=== PATIENT | female | born 1970 | race Caucasian/White ===

== ENCOUNTER → 2017-11-05 07:04 | Outpatient (CLI) | payer OTHER, SELFPAY ==
[2017-11-05 07:38] LABS: Basophils # 0.1 K/mm3 (0-0.2); Basophils % 0.4 % (0.1-2.0); Eosinophils # 0.2 K/mm3 (0.0-0.4); Eosinophils % 1.2 % (0.1-12.0); Hematocrit 47.4 % (37.0-47.0); Hemoglobin 15.8 g/dL (12.2-16.2); Lymphocytes # 2.4 K/mm3 (0.7-4.5); Lymphocytes % 18.1 K/mm3 (10-50); Mean Corpuscular HGB Conc 33.4 g/dL (31.8-35.4); Mean Corpuscular Hemoglobin 31.6 pg (27.0-31.2); Mean Corpuscular Volume 94.6 fl (81-99); Mean Platelet Volume 8.1 fl (7.4-10.4); Monocytes # 0.5 K/mm3 (0.1-1.0); Monocytes % 3.9 % (1.7-9.3); Neutrophils # 10.2 K/mm3 (1.8-7.8); Neutrophils % 76.4 % (37.0-80.0); Platelet Count 308 K/mm3 (142-424); Red Blood Count 5.01 M/mm3 (4.20-5.40); Red Cell Distribution Width 12.4 % (11.5-17.5); White Blood Count 13.3 K/mm3 (4.8-10.8)
[2017-11-05 09:05] LABS: Erythrocyte Sedimentation Rate 14 mm/hr (0-20)
[2017-11-05 10:04] LABS: Alanine Aminotransferase 50 U/L (12-78); Albumin Level 4.1 gm/dL (3.4-5.0); Albumin/Globulin Ratio 1.1 (1.1-1.8); Alkaline Phosphatase 85 U/L (46-116); Anion Gap 16.7 mEq/L (5-15); Aspartate Amino Transferase 17 U/L (15-37); Bilirubin,Total 0.3 mg/dL (0.2-1.0); Blood Urea Nitrogen 15 mg/dL (7-18); Calcium 10.1 mg/dL (8.5-10.1); Carbon Dioxide 25 mmol/L (21.0-32.0); Chloride 105 mmol/L (98-107); Chol/HDL Ratio 8.6 (1-3.5); Cholesterol 320 mg/dL (140-200); Creatinine,Serum 0.77 mg/dL (0.55-1.02); Estimated Glomerular Filt Rate 80 ml/min (>60); GFR (African American) 97 ML/MIN (>60); Globulin 3.6 gm/dl (1.3-3.2); Glucose 88 mg/dL (74-106); HDL Cholesterol 37 mg/dL (29-89); LDL Cholesterol 220 mg/dL (0-130); Potassium 4.7 mmoL/L (3.5-5.1); Sodium 142 mmol/L (136-145); T4 (Thyroxine) 8.7 ug/dl (4.7-13.3); Thyroid Stimulating Hormone 1.04 uIU/ml (0.358-3.740); Total Protein,Serum 7.7 gm/dL (6.4-8.2); Triglycerides 314 mg/dL (30-200); VLDL Cholesterol 63 mg/dL (0-40)
[2017-11-05 10:10] LABS: C-Reactive Protein < 0.2 mg/L (0.0-0.9)
[2017-11-07 06:16] LABS: CA 19-9 7 U/mL (0-35); Vitamin B12 409 pg/mL (232-1245); Vitamin D 25 Hydroxy 18.3 ng/mL (30.0-100.0)
== END ==
PROVIDERS: Visit Provider Nurse Practitioner Family
DX: K62.89 Other specified diseases of anus and rectum (principal); R53.83 Other fatigue; Z13.828 Encounter for screening for other musculoskeletal disorder
CPT/HCPCS: 36415; 80053; 80061; 82607; 82652; 84436; 84443; 85025; 85651; 86140; 86316

== ENCOUNTER → 2017-11-22 16:50 | Outpatient (CLI) | payer OTHER, SELFPAY ==
--- NOTE | 2017-11-22 16:53 | MM_ITS ---
MM Dig screening mamm BI w/CAD ORDERING PHYSICIAN : Denise Goldberg PATIENT AGE: 47 years GENDER: Female COMPARISON: Apparently have not arrived or None available from prior [place] mammogram INDICATION: ITS.REASON: breast cancer screening no hormones. No new complaints noncontributory family history TECHNIQUE: Standard CC and MLO images were obtained. R2 CAD reviewed. Also axillary cc views both breasts. FINDINGS: Apparently staff had been waiting for outside studies to arrive from [place] but they never have. When staff called facility again apparently the studies are no longer available. Best is cases now finally presented to me for dictation and review. The breasts demonstrate mild asymmetry with slightly more inhomogeneous fibroglandular elements upper-outer quadrant left breast than right. RIGHT BREAST: The combination of the 3 view show highly suspicious mass. There are some focal areas of density noted and highlighted by CAD LEFT BREAST:. Similarly the 3 views show no highly suspicious area. There are some scattered areas slightly more focal density at the upper quadrant left breast. Some of which highlighted by CAD as well. These are Most likely fibroglandular densities. . However I would suggest an bilateral follow-up study in 5-6 months to confirm stable baseline character less outside studies can be obtained thereafter IMPRESSION: --- No prior studies available Scattered areas of density upper-outer quadrant both right and left breast are most likely fibroglandular elements. No Area of significant greater concern then another However I would suggest a bilateral follow-up mammogram in 6 months to better confirm & supports this appearance as baseline stability,... With hopefully routine protocol thereafter BI-RADS Category: 3 Probably Benign Finding Short Term Follow-up RECOMMENDED FOLLOW-UP: 6M 6 MONTH FOLLOW-UP Bilateral mammogram May 2018 (A letter has been sent to the patient regarding results of the study.)
== END ==
PROVIDERS: PCP Nurse Practitioner Family; Visit Provider Nurse Practitioner Family
DX: Z12.31 Encounter for screening mammogram for malignant neoplasm of breast (principal)
CPT/HCPCS: 77067

== ENCOUNTER 2017-11-23 08:30 | Outpatient (RCR) | payer OTHER, SELFPAY | END 2017-11-23 08:31 | disposition home or self-care (01) | LOC: PT 08:30 | PROVIDERS: PCP Nurse Practitioner Family; Visit Provider Orthopaedic Surgery | DX: M25.562 Pain in left knee (principal); M25.362 Other instability, left knee | CPT/HCPCS: 97010; 97014; 97110; 97163; G0283 ==

== ENCOUNTER → 2018-07-01 09:44 | Outpatient (CLI) | payer OTHER, SELFPAY ==
[2018-07-01 09:57] LABS: Basophils # 0.1 K/mm3 (0-0.2); Basophils % 0.5 % (0.1-2.0); Eosinophils # 0.2 K/mm3 (0.0-0.4); Eosinophils % 1.7 % (0.1-12.0); Hematocrit 47.9 % (37.0-47.0); Lymphocytes % 26.1 % (10-50); Mean Corpuscular HGB Conc 33.5 g/dL (31.8-35.4); Mean Corpuscular Hemoglobin 31.9 pg (27.0-31.2); Mean Corpuscular Volume 95.4 fl (81-99); Mean Platelet Volume 8.4 fl (7.4-10.4); Monocytes # 0.4 K/mm3 (0.1-1.0); Monocytes % 3.3 % (1.7-9.3); Neutrophils # 7.9 K/mm3 (1.8-7.8); Neutrophils % 68.5 % (37.0-80.0); Platelet Count 374 K/mm3 (142-424); Red Blood Count 5.02 M/mm3 (4.20-5.40); Red Cell Distribution Width 12.6 % (11.5-17.5); White Blood Count 11.6 K/mm3 (4.8-10.8)
[2018-07-01 10:22] LABS: Alanine Aminotransferase 62 U/L (12-78); Albumin Level 4.3 gm/dL (3.4-5.0); Albumin/Globulin Ratio 1.2 (1.1-1.8); Alkaline Phosphatase 79 U/L (46-116); Anion Gap 16.9 mEq/L (5-15); Aspartate Amino Transferase 25 U/L (15-37); Bilirubin,Total 0.4 mg/dL (0.2-1.0); Blood Urea Nitrogen 13 mg/dL (7-18); Carbon Dioxide 24 mmol/L (21.0-32.0); Chloride 103 mmol/L (98-107); Creatine Kinase 96 U/L (26-192); Creatinine,Serum 0.78 mg/dL (0.55-1.02); Estimated Glomerular Filt Rate 78 ml/min (>60); GFR (African American) 95 ML/MIN (>60); Globulin 3.6 gm/dl (1.3-3.2); Glucose 97 mg/dL (74-106); Potassium 3.9 mmoL/L (3.5-5.1); Sodium 140 mmol/L (136-145); Total Protein,Serum 7.9 gm/dL (6.4-8.2); Troponin I < 0.02 ng/ml (0.00-0.06)
[2018-07-01 10:45] LABS: Calcium 9.8 mg/dL (8.5-10.1)
[2018-07-01 11:15] LABS: CKMB Relative Index 0.5 U/L (0-4.0); Creatine Kinase MB < 0.5 ng/ml (0.0-3.6)
== END ==
PROVIDERS: Visit Provider Emergency Medicine
DX: R07.9 Chest pain, unspecified (principal)
CPT/HCPCS: 80053; 82550; 82553; 84484; 85025

== ENCOUNTER → 2019-01-08 15:04 | Outpatient (CLI) | payer OTHER, SELFPAY | PROVIDERS: Visit Provider Nurse Practitioner Family | DX: N32.89 Other specified disorders of bladder (principal) | CPT/HCPCS: 87086; 87088; 87186 ==

== ENCOUNTER → 2019-02-22 07:31 | Outpatient (CLI) | payer OTHER, SELFPAY ==
[2019-02-22 13:18] LABS: Chol/HDL Ratio 7.3 (1-3.5); Cholesterol 316 mg/dL (140-200); Free T4 (Free Thyroxine) 0.97 ng/dl (0.76-1.46); HDL Cholesterol 43 mg/dL (29-89); LDL Cholesterol 241 mg/dL (0-130); Thyroid Stimulating Hormone 1.12 uIU/ml (0.358-3.740); Triglycerides 159 mg/dL (30-200); VLDL Cholesterol 32 mg/dL (0-40)
[2019-02-24 14:34] LABS: Measles Antibodies, IgG >300.0 AU/mL (Immune >16.4); Rubella Antibodies, IgG 1.73 index (Immune >0.99); Varicella Zoster IgG 1200 index (Immune >165)
== END ==
PROVIDERS: Visit Provider Nurse Practitioner Family
DX: E66.9 Obesity, unspecified (principal); Z92.29 Personal history of other drug therapy; Z23 Encounter for immunization
CPT/HCPCS: 36415; 80061; 84439; 84443; 86735; 86762; 86765; 86787

== ENCOUNTER → 2020-02-16 08:01 | Outpatient (CLI) | payer OTHER, SELFPAY ==
--- NOTE | 2020-02-16 08:01 | MR_ITS ---
PROCEDURE: MR CERVICAL SPINE WO CON CLINICAL INDICATION: worsening neck pain with reoccurring right upper extremity pain tingling and numbness FREQUENT MIGRAINES, PREVIOUS NECK SURGERY 2015, NECK PAIN, RIGHT ARM TINGLING/NUMBNESS. NO PRIOR COMPARISON: No exams were available for comparison TECHNIQUE: Standard multiplanar multiecho sequences are performed without contrast. 3-D MIP and myelographic images are also rendered and reviewed FINDINGS: Craniocervical junction has an unremarkable appearance. There is reversal of the normal cervical lordosis which could be due to patient positioning or muscle spasm. C2-C3: Mild left foraminal narrowing from facet hypertrophy. C3-C4: Moderate to severe left-sided foraminal narrowing from facet hypertrophy. C4-C5: Moderate sized right paracentral disc herniation causing severe right lateral recess narrowing impinging upon and compressing the right and anterior aspect of the cervical cord. Borderline canal stenosis. C5-C6: Degenerative disc disease with a broad based medium sized right paracentral and foraminal disc osteophyte complex causing severe right-sided lateral recess and foraminal narrowing. This abuts the right lateral aspect of the cord anteriorly. There is canal stenosis at this level at 10 mm C6-C7: Unremarkable. C7-T1: Unremarkable IMPRESSION: 1. Reversal cervical lordosis which may be due to patient positioning or muscle spasm. 2. C3-C4: Moderate to severe left-sided foraminal narrowing from facet hypertrophy. 3. C4-C5: Moderate sized right paracentral disc herniation causing severe right lateral recess narrowing impinging upon and compressing the right and anterior aspect of the cervical cord. Borderline canal stenosis at 11 mm 4. C5-C6: Degenerative disc disease with a broad based medium sized right paracentral and foraminal disc osteophyte complex causing severe right-sided lateral recess and foraminal narrowing. This abuts the right lateral aspect of the cord anteriorly. There is canal stenosis at this level at 10 mm Dictated by: Sher Whitney MD 02/18/2020 09:10 Sher Whitney MD in [place] 02/18/2020 09:10
== END ==
PROVIDERS: PCP Nurse Practitioner Family; Visit Provider Specialist
DX: G43.009 Migraine without aura, not intractable, without status migrainosus (principal); R51.9 Headache, unspecified; G89.29 Other chronic pain; M54.2 Cervicalgia; R20.0 Anesthesia of skin; R20.2 Paresthesia of skin
CPT/HCPCS: 70551; 72141; 76376

== ENCOUNTER → 2020-03-06 06:51 | Outpatient (CLI) | payer OTHER, SELFPAY ==
[2020-03-06 06:54] VITALS: BP 128/75; PULSE 75; RESP 15; O2SAT 98; BMI 25.0
[2020-03-06 07:01] VITALS: BP 125/73; PULSE 75; RESP 16; TEMP 36.6; O2SAT 98
== END ==
PROVIDERS: PCP Nurse Practitioner Family; Visit Provider Emergency Medicine
DX: J32.9 Chronic sinusitis, unspecified (principal)
CPT/HCPCS: 96372

== ENCOUNTER 2020-05-04 19:13 | Emergency (ER) | payer OTHER, SELFPAY ==
[2020-05-04 19:30] VITALS: BP 142/80; PULSE 85; RESP 19; TEMP 36.9; O2SAT 98; BMI 28.3
--- NOTE | 2020-05-04 19:47 | HMH.EDUTC ---
[facility] Disposition Clinical Impression: Encounter for laboratory testing for COVID-19 virus Disposition: Home, Self-Care Condition on Discharge: Good Instructions: DI for COVID-19 (Suspected or Confirmed ), COVID-19: Testing and Tracing, Preventing the Spread of Coronavirus Discharge Instructions Additional Instructions: *Monitor Temp, Over the counter Motrin or Tylenol as directed/as needed Tylenol every 4 hours and Motrin every 6 hours (as long as your family doctor has told you that you can take it) for fever or pain. and straight to ER if unable to lower temp less than 101.0 after medication given *Warm salt water gargles may help to soothe the throat *Throat Lozenges *Warm fluids like tea with honey may help to soothe the throat *Sleep elevated *Humidifier/Vaporizer Follow up IMMEDIATELY for new or worsening symptoms or no Noticeable improvement over the next 48-72 hours. 911 for difficulty breathing or swallowing You were tested for today for COVID19 your test result should be back in the next 24-48 hours, you may call to the [facility] to see if your test results are back in the next 48 hours [phone] [facility] hours are 9am-9pm You was given a handout with instructions for Self Quarantine and Self isolation for while you wait on test results and what to do if they are positive If you are positive the Health Dept will be contacting you also Referrals: Denise Goldberg APRN [Primary Care Provider] - As needed Forms: Work/School Release Time of Disposition: 19:51 Medical Decision Making - John Inquiry Pt receiving controlled substance: No John was queried for this patient: No Vital Signs: 05/04/20 19:30 Temperature 98.4 F Temperature Source Oral Pulse Rate [Right Brachial] 85 Respiratory Rate 19 Blood Pressure [Right Arm] 142/80 H Blood Pressure Mean [Right Arm] 100 Blood Pressure Source [Right Arm] Automatic Cuff Blood Pressure Position [Right Arm] Sitting 02 Sat by Pulse Oximetry 98 Oxygen Delivery Method Room Air Orders (Tests/Meds): ORDERS Category Date Time Status Covid-19 Nasal PCR Sendout P&[facility] Stat Lab 05/04/20 19:18 Ordered [facility] HPI - General Stated complaint: covid test-positive@work Time Seen by Provider: 05/04/20 19:47 Mode of Arrival: Ambulatory Source of Information: Patient Limitations: No Limitations Description of Symptoms (Recalled from Triage Doc. by RN): PATIENT TESTED POSITIVE WITH RAPID COVID TEST. NEEDING PCR. C/O STOMACH CRAMP, SORE THROAT, AND COUGH HEENT Symptoms (Recalled from RN notes): Yes Resp Symptoms (Recalled from RN notes): No Skin Symptoms (Recalled from RN notes): No MS Symptoms (Recalled from RN notes): No Functional Status (Recalled from RN notes): WNL - History of Present Illness Provider Complaint: Patient states that she works at [employer] and alot of the staff has tested positive for COVID States that she took the rapid test earlier and it was positive so they made her come in and get a PCR test States that she has been having some symptoms such as sore throat cramping/diarrhea and cough - Related Data Home Medications Medication Instructions Recorded Confirmed [id number] 1 tab PO PRN tab 02/05/20 03/19/20 50 mg-325 mg-40 mg tablet Previous Rx's Medication Instructions Recorded atorvastatin 10 mg tablet 10 mg PO QHS #30 tab 01/23/20 ubrogepant 100 mg tablet 100 mg PO .COMPLEX #10 tab 02/05/20 phentermine 37.5 mg tablet 37.5 mg PO DAILY #30 tab 03/19/20 topiramate 25 mg tablet 25 mg PO DAILY #30 tab 03/19/20 fluconazole 100 mg tablet 100 mg PO DAILY #5 tab 03/23/20 Allergies Allergy/AdvReac Type Severity Reaction Status Date / Time codeine Allergy Verified 05/04/20 19:40 - Worker's Comp Is this a Worker's Comp case?: No [facility] History - Hepatitis A Screen Drug use history?: No High risk sexual behaviors?: No History of sexually transmitted infection?: No Currently employed?: 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
[2020-05-04 20:05] VITALS: BP 142/80; PULSE 85; RESP 19; TEMP 36.9; O2SAT 98
--- NOTE | 2020-05-06 10:06 | PC.NURSE ---
patient notified of positive covid results
[2020-05-06 10:07] LABS: Covid-19 Nasal PCR Sendout P&C POSITIVE
== END 2020-05-04 20:08 | disposition home or self-care (01) ==
PROVIDERS: Emergency Provider Nurse Practitioner; PCP Nurse Practitioner Family
DX: U07.1 COVID-19 (principal); E78.5 Hyperlipidemia, unspecified; G43.709 Chronic migraine without aura, not intractable, without status migrainosus; F17.210 Nicotine dependence, cigarettes, uncomplicated; Z88.5 Allergy status to narcotic agent; Z79.899 Other long term (current) drug therapy
CPT/HCPCS: 99202; G0463; U0004

== ENCOUNTER → 2021-02-25 11:58 | Outpatient (CLI) | payer OTHER, SELFPAY ==
[2021-02-25 12:00] LABS: Microscopic, Urine URINE MICROSCOPIC (MICROSCOPIC)
[2021-02-25 12:45] LABS: Appearance,Urine SL CLOUDY (Clear); Bilirubin,Urine Negative (Negative); Blood, Urine 1+ (Negative); Color,Urine YELLOW (Yellow); Glucose,Urine (UA) Negative (Negative); Ketones,Urine TRACE (Negative); Leukocyte Esterase,Urine Negative (Negative); Nitrate,Urine Negative (Negative); Protein,Urine Negative (Negative); Specific Gravity, Urine 1.025 (1.005-1.030); Urobilinogen,Urine 0.2 EU/dl (0.2)
[2021-02-25 12:57] LABS: Bacteria,Urine Trace /lpf; WBC,Urine Occasional #/hpf (0-3)
== END ==
PROVIDERS: Visit Provider Nurse Practitioner Family
DX: R30.0 Dysuria (principal); N39.0 Urinary tract infection, site not specified
CPT/HCPCS: 81001; 87086

== ENCOUNTER → 2021-05-10 07:57 | Outpatient (CLI) | payer OTHER, SELFPAY ==
--- NOTE | 2021-05-10 08:01 | XR_ITS ---
FINAL REPORT CLINICAL HISTORY: hip pain..no trauma FINDINGS: LEFT HIP Two views of the left hip including an AP pelvis demonstrate no acute fracture or dislocation. The joint spaces appear normal. The visualized bony structures are well aligned. No soft tissue abnormality is seen. IMPRESSION: No acute bony abnormality. Reviewed, Interpreted and Dictated by Elias Gunn MD Transcribed by Marii Neff Authenticated by Elias Gunn MD on 05/10/2021 09:49:[address] [facility]
[2021-05-10 08:43] LABS: Basophils # 0.1 K/mm3 (0-0.2); Eosinophils # 0.2 K/mm3 (0.0-0.4); Hematocrit 48.5 % (37.0-47.0); Hemoglobin 15.2 g/dL (12.2-16.2); Lymphocytes # 2.4 K/mm3 (0.7-4.5); Lymphocytes % 30.1 % (10-50); Mean Corpuscular HGB Conc 31.4 g/dL (31.8-35.4); Mean Corpuscular Hemoglobin 32.5 pg (27.0-31.2); Mean Corpuscular Volume 103.7 fl (81-99); Mean Platelet Volume 8.7 fl (7.4-10.4); Monocytes # 0.3 K/mm3 (0.1-1.0); Monocytes % 3.8 % (1.7-9.3); Neutrophils # 5.1 K/mm3 (1.8-7.8); Platelet Count 358 K/mm3 (142-424); Red Blood Count 4.67 M/mm3 (4.20-5.40); Red Cell Distribution Width 12.8 % (11.5-17.5); White Blood Count 8.1 K/mm3 (4.8-10.8)
[2021-05-10 09:30] LABS: Erythrocyte Sedimentation Rate 35 mm/hr (0-30)
[2021-05-10 10:30] LABS: Alanine Aminotransferase 55 U/L (12-78); Albumin Level 4.9 g/dl (3.5-5.0); Albumin/Globulin Ratio 1.9 (1.1-1.8); Alkaline Phosphatase 63 U/L (38-126); Anion Gap 15.9 mEq/L (5-15); Aspartate Amino Transferase 33 U/L (14-36); Bilirubin,Total 0.5 mg/dl (0.2-1.3); Blood Urea Nitrogen 19 mg/dl (7-17); Calcium 10.6 mg/dl (8.4-10.2); Carbon Dioxide 23 mmol/L (22.0-30.0); Chloride 112 mmol/L (98-107); Chol/HDL Ratio 6.5 (1-3.5); Cholesterol 299 mg/dl (140-200); Estimated Glomerular Filt Rate 75 ml/min (>60); GFR (African American) 91 ML/MIN (>60); Globulin 2.6 g/dL (1.3-3.2); Glucose 94 mg/dl (74-100); HDL Cholesterol 46 mg/dl (40-60); Potassium 4.9 mmoL/L (3.5-5.1); Sodium 146 mmol/L (136-145); Total Protein,Serum 7.5 g/dl (6.3-8.2); Triglycerides 226 mg/dl (30-150); Uric Acid 5.2 mg/dl (2.5-6.2); VLDL Cholesterol 45 mg/dL (0-40)
[2021-05-10 10:41] LABS: Direct LDL Cholesterol 219.63 mg/dL (100-129)
[2021-05-10 10:46] LABS: T4 (Thyroxine) 7.4 ug/dl (5.53-11.0)
[2021-05-10 11:00] LABS: Thyroid Stimulating Hormone 0.68 uIU/mL (0.465-4.68)
[2021-05-11 08:16] LABS: RA Latex Turbid. <10.0 IU/mL (<14.0)
[2021-05-11 22:28] LABS: Antinuclear Antibodies, IFA Positive (.)
== END ==
PROVIDERS: PCP Nurse Practitioner Family; Visit Provider Nurse Practitioner Family
DX: M25.552 Pain in left hip (principal); R23.2 Flushing; Z79.899 Other long term (current) drug therapy
CPT/HCPCS: 36415; 73502; 80053; 80061; 84436; 84443; 84550; 85025; 85651; 86038; 86431

== ENCOUNTER 2021-07-10 20:22 | Emergency (ER) | payer OTHER, SELFPAY ==
[2021-07-10 20:24] VITALS: BP 180/83; PULSE 83; RESP 18; TEMP 36.9; O2SAT 95; BMI 31.2
--- NOTE | 2021-07-10 20:45 | PC.NURSE ---
ER at bedside
--- NOTE | 2021-07-10 20:47 | HMH.EDGENADL ---
ED Disposition Clinical Impression: Lumbar back pain with radiculopathy affecting left lower extremity Disposition: Home, Self-Care Condition on Discharge: Good Instructions: DI for Lumbar Radiculopathy Additional Instructions: use meds and call pcp for follow up Prescriptions: predniSONE [Prednisone 20mg Tab] 20 mg PO BID #10 tab Transmission Status: Pending to [id number] Referrals: Denise Goldberg APRN [Primary Care Provider] - - Critical Care Critical Care Time: No Attestation: On 07/10/21, the high probability of a clinically significant, sudden or life threatening deterioration of the following system(s) required my full and direct attention, intervention and personal management. The time I documented below is in addition to time spent performing reported procedures but includes the following listed in this critical care notation. Medical Decision Making - Medical Records Medical records reviewed: Yes: I reviewed the patient's medical records. - John Inquiry Pt receiving controlled substance: No Vital Signs: 07/10/21 20:24 Temperature 98.5 F Temperature Source Oral Pulse Rate [Left Radial] 83 Respiratory Rate 18 Blood Pressure [Right Arm] 180/83 H Blood Pressure Mean [Right Arm] 115 02 Sat by Pulse Oximetry 95 Oxygen Delivery Method Room Air - Lab Data Lab results reviewed: Yes: I reviewed the patient's lab results. Lab Results 07/10/21 20:34: Urine Color Yellow, Urine Appearance Clear, Urine pH 5.5, Ur Specific Admire >= 1.030, Urine Protein Negative, Urine Glucose (UA) Negative, Urine Ketones Negative, Urine Blood 2+, Urine Nitrate Negative, Urine Bilirubin Negative, Urine Urobilinogen 0.2, Ur Leukocyte Esterase Negative, Urine RBC 5-10, Urine WBC 3-5, Ur Squamous Epith Cells 5-10, Amorphous Sediment Trace 07/10/21 21:00: WBC 11.1 H, RBC 4.62, Hgb 15.1, Hct 45.2, MCV 97.7, MCH 32.6 H, MCHC 33.3, RDW 12.8, Plt Count 311, MPV 9.0, Neut % (Auto) 59.5, Lymph % (Auto) 32.1, [place] % (Auto) 4.5, Eos % (Auto) 1.9, Baso % (Auto) 2.0, Neut # (Auto) 6.6, Lymph # (Auto) 3.6, [place] # (Auto) 0.5, Eos # (Auto) 0.2, Baso # (Auto) 0.2 07/10/21 21:00: Sodium 138, Potassium 3.4 L, Chloride 106, Carbon Dioxide 24, Anion Gap 11.4, BUN 10, Creatinine 0.50 L, Estimated Creat Clear 151, Estimated GFR 130, Est GFR ( Amer) 157, Glucose 96, Calcium 9.4, Total Bilirubin 0.4, AST 38 H, ALT 65, Alkaline Phosphatase 63, C-Reactive Protein 1.1, Total Protein 7.5, Albumin 4.5, Globulin 3.0, Albumin/Globulin Ratio 1.5 07/10/21 21:00: ESR 17 07/10/21 21:00: Procalcitonin 0.061 Result diagrams: 07/10/21 21:00 07/10/21 21:00 Orders (Tests/Meds): ED MEDICATIONS Generic Name Dose Route Start Last Admin Trade Name Freq PRN Reason Stop Dose Admin Sodium Chloride 1,000 mls @ 999 mls/hr 07/10/21 21:00 07/10/21 21:09 Sod Chlor 0.9% 1000ml Bag IV 07/10/21 22:00 999 mls/hr .Q1H1M KRISTINE Administration Discontinued Medications Generic Name Dose Route Start Last Admin Trade Name Freq PRN Reason Stop Dose Admin Ketorolac Tromethamine 15 mg 07/10/21 20:50 07/10/21 21:07 Ketorolac 30mg/Ml Vial IV 07/10/21 20:51 15 mg ONCE ONE Administration - CT Data CT Scan: Abdomen, Pelvis, L-Spine Time Received: 21:[address] Reviewed: Yes: I have viewed the radiologist's interpretation Preliminary Findings: No Fracture Seen Medical Decision Narrative: has lumbar radicular pain witrh no rash or cauda equina sx- stable ct General Adult HPI - General Chief complaint: PAIN Stated complaint: back pain possible kidney stones Time Seen by Provider: 07/10/21 20:47 Mode of Arrival: Ambulatory Source of Information: Patient, Spouse, Medical Record Limitations: No Limitations Description of Symptoms (Recalled from ER Triage Doc. by RN): LEFT FLANK AND HIP PAIN - WORSE TODAY. 7/10 ACHES. - History of Present Illness HPI narrative: progressive lt flank and lumbar pain with rad to lt loer
--- NOTE | 2021-07-10 20:49 | CT_ITS ---
PROCEDURE INFORMATION: Exam: CT Abdomen And Pelvis Without Contrast Exam date and time: 07/10/2021 9:05 PM Age: 50 years old Clinical indication: Abdominal pain; Generalized; Prior surgery; Surgery date: 6+ months; Surgery type: Hysterectomy, tubal; Patient HX: PT born with only left kidney; Additional info: Left flank and hip pain TECHNIQUE: Imaging protocol: Computed tomography of the abdomen and pelvis without contrast. Radiation optimization: All CT scans at this facility use at least one of these dose optimization techniques: automated exposure control; mA and/or kV adjustment per patient size (includes targeted exams where dose is matched to clinical indication); or iterative reconstruction. COMPARISON: CR XR HIP LT 2-3V W/PELVIS 05/10/2021 8:04 AM FINDINGS: Lungs: Granuloma within the left lower lung. There are hypoventalitory changes at the lung bases. Liver: Parenchymal enhancement is not evaluated without contrast. No hepatomegaly. Gallbladder and bile ducts: No calcified stones. No ductal dilation. Pancreas: Parenchymal enhancement is not evaluated without contrast. No ductal dilation. Spleen: Parenchymal enhancement is not evaluated without contrast. No splenomegaly. Adrenal glands: Right adrenal calcification. Kidneys and ureters: Right kidney is not visualized. Left kidney is unremarkable. Stomach and bowel: No obstruction. No mucosal thickening. Appendix: No evidence of appendicitis. Intraperitoneal space: No free air. No significant fluid collection. Vasculature: Limited evaluation without contrast. No abdominal aortic aneurysm. Lymph nodes: No enlarged lymph nodes. Urinary bladder: No acute abnormality. Reproductive: No acute abnormality. Bones/joints: Mild scoliosis. No fracture. Soft tissues: Limited evaluation without contrast. No significant soft tissue swelling. IMPRESSION: Limited noncontrast evaluation without acute findings.
--- NOTE | 2021-07-10 20:49 | CT_ITS ---
PROCEDURE INFORMATION: Exam: CT Lumbar Spine Without Contrast Exam date and time: 07/10/2021 9:01 PM Age: 50 years old Clinical indication: Low back pain; Prior surgery; Surgery type: Hysterectomy tubal; Additional info: Left flank and hip pain TECHNIQUE: Imaging protocol: Computed tomography images of the lumbar spine without contrast. Radiation optimization: All CT scans at this facility use at least one of these dose optimization techniques: automated exposure control; mA and/or kV adjustment per patient size (includes targeted exams where dose is matched to clinical indication); or iterative reconstruction. COMPARISON: CR XR HIP LT 2-3V W/PELVIS 05/10/2021 8:04 AM FINDINGS: Vertebrae: Mild scoliosis. No acute fracture. Reproductive: Calcification of the right adrenal gland. Vasculature: Calcified atherosclerosis. No aneurysm. Soft tissues: Unremarkable. IMPRESSION: No acute findings.
[2021-07-10 20:50] LABS: Microscopic, Urine URINE MICROSCOPIC (MICROSCOPIC)
[2021-07-10 20:52] LABS: Appearance,Urine CLEAR (Clear); Bilirubin,Urine Negative (Negative); Blood, Urine 2+ (Negative); Color,Urine YELLOW (Yellow); Glucose,Urine (UA) Negative (Negative); Ketones,Urine Negative (Negative); Leukocyte Esterase,Urine Negative (Negative); Nitrate,Urine Negative (Negative); PH,Urine 5.5 (5.0-8.5); Protein,Urine Negative (Negative); Specific Gravity, Urine >= 1.030 (1.005-1.030); Urobilinogen,Urine 0.2 EU/dl (0.2)
[2021-07-10 20:58] LABS: Amorphous Sediment,Urine Trace /lpf
[2021-07-10 21:13] LABS: Basophils # 0.2 K/mm3 (0-0.2); Eosinophils # 0.2 K/mm3 (0.0-0.4); Eosinophils % 1.9 % (0.1-12.0); Hematocrit 45.2 % (37.0-47.0); Hemoglobin 15.1 g/dL (12.2-16.2); Lymphocytes # 3.6 K/mm3 (0.7-4.5); Lymphocytes % 32.1 % (10-50); Mean Corpuscular HGB Conc 33.3 g/dL (31.8-35.4); Mean Corpuscular Hemoglobin 32.6 pg (27.0-31.2); Mean Corpuscular Volume 97.7 fl (81-99); Monocytes # 0.5 K/mm3 (0.1-1.0); Monocytes % 4.5 % (1.7-9.3); Neutrophils # 6.6 K/mm3 (1.8-7.8); Neutrophils % 59.5 % (37.0-80.0); Platelet Count 311 K/mm3 (142-424); Red Blood Count 4.62 M/mm3 (4.20-5.40); Red Cell Distribution Width 12.8 % (11.5-17.5); White Blood Count 11.1 K/mm3 (4.8-10.8)
[2021-07-10 21:27] LABS: Alanine Aminotransferase 65 U/L (12-78); Albumin Level 4.5 g/dl (3.5-5.0); Albumin/Globulin Ratio 1.5 (1.1-1.8); Alkaline Phosphatase 63 U/L (38-126); Anion Gap 11.4 mEq/L (5-15); Aspartate Amino Transferase 38 U/L (14-36); Bilirubin,Total 0.4 mg/dl (0.2-1.3); Blood Urea Nitrogen 10 mg/dl (7-17); Calcium 9.4 mg/dl (8.4-10.2); Carbon Dioxide 24 mmol/L (22.0-30.0); Chloride 106 mmol/L (98-107); Creatinine Clearance Estimated 151 mL/min (50-200); Estimated Glomerular Filt Rate 130 ml/min (>60); GFR (African American) 157 ML/MIN (>60); Glucose 96 mg/dl (74-100); Potassium 3.4 mmoL/L (3.5-5.1); Sodium 138 mmol/L (136-145); Total Protein,Serum 7.5 g/dl (6.3-8.2)
[2021-07-10 21:32] LABS: C-Reactive Protein 1.1 mg/L (0-4)
[2021-07-10 21:42] LABS: Erythrocyte Sedimentation Rate 17 mm/hr (0-30)
[2021-07-10 21:44] LABS: Procalcitonin 0.061 ng/mL (0.0-2.0)
[2021-07-10 22:56] VITALS: BP 145/99; PULSE 80; RESP 18; TEMP 36.7; O2SAT 97
== END 2021-07-10 22:20 | disposition home or self-care (01) ==
PROVIDERS: Emergency Provider Emergency Medicine; PCP Nurse Practitioner Family
DX: M54.16 Radiculopathy, lumbar region (principal); G43.709 Chronic migraine without aura, not intractable, without status migrainosus; E78.5 Hyperlipidemia, unspecified; F17.210 Nicotine dependence, cigarettes, uncomplicated
CPT/HCPCS: 72131; 74176; 80053; 81001; 84145; 85025; 85651; 86140; 96365; 96375; 99284

== ENCOUNTER → 2022-01-06 12:09 | Outpatient (CLI) | payer OTHER, SELFPAY ==
--- NOTE | 2022-01-06 12:12 | US_ITS ---
FINAL REPORT CLINICAL HISTORY: abdominal pain FINDINGS: Ultrasound images of the right upper quadrant were obtained. The liver parenchyma is increased echogenicity. The gallbladder contains a trace amount of sludge and a small polyp. The common duct is normal. The right kidney is congenitally absent. IMPRESSION: Diffuse fatty liver. Trace sludge and a polyp in the gallbladder. Congenitally absent right kidney. Reviewed, Interpreted and Dictated by Elias Gunn MD Transcribed by Chris Millan Authenticated and [facility]
[2022-01-06 12:49] LABS: Microscopic, Urine URINE MICROSCOPIC (MICROSCOPIC)
[2022-01-06 13:09] LABS: Basophils # 0.1 K/mm3 (0-0.2); Basophils % 0.7 % (0.1-2.0); Eosinophils # 0.2 K/mm3 (0.0-0.4); Eosinophils % 1.5 % (0.1-12.0); Hematocrit 46.6 % (37.0-47.0); Hemoglobin 15.2 g/dL (12.2-16.2); Lymphocytes # 2.6 K/mm3 (0.7-4.5); Lymphocytes % 23.4 % (10-50); Mean Corpuscular HGB Conc 32.7 g/dL (31.8-35.4); Mean Corpuscular Hemoglobin 32.2 pg (27.0-31.2); Mean Corpuscular Volume 98.6 fl (81-99); Mean Platelet Volume 8.1 fl (7.4-10.4); Monocytes # 0.4 K/mm3 (0.1-1.0); Monocytes % 3.9 % (1.7-9.3); Neutrophils # 7.7 K/mm3 (1.8-7.8); Neutrophils % 70.5 % (37.0-80.0); Platelet Count 348 K/mm3 (142-424); Red Blood Count 4.73 M/mm3 (4.20-5.40); Red Cell Distribution Width 12.8 % (11.5-17.5); White Blood Count 10.9 K/mm3 (4.8-10.8)
[2022-01-06 13:24] LABS: Appearance,Urine CLEAR (Clear); Bilirubin,Urine Negative (Negative); Blood, Urine 1+ (Negative); Color,Urine YELLOW (Yellow); Glucose,Urine (UA) Negative (Negative); Ketones,Urine Negative (Negative); Leukocyte Esterase,Urine Negative (Negative); Nitrate,Urine Negative (Negative); Protein,Urine Negative (Negative); Specific Gravity, Urine <= 1.005 (1.005-1.030); Urobilinogen,Urine 0.2 EU/dl (0.2)
[2022-01-06 14:42] LABS: Chloride 106 mmol/L (98-107)
[2022-01-06 14:43] LABS: Potassium 4.7 mmoL/L (3.5-5.1); Sodium 143 mmol/L (136-145)
[2022-01-06 14:45] LABS: Alanine Aminotransferase 91 U/L (12-78); Amylase 52 U/L (30-110); Anion Gap 16.7 mEq/L (5-15); Aspartate Amino Transferase 48 U/L (14-36); Blood Urea Nitrogen 10 mg/dl (7-17); Carbon Dioxide 25 mmol/L (22.0-30.0); Estimated Glomerular Filt Rate 88 ml/min (>60); GFR (African American) 106 ML/MIN (>60)
[2022-01-06 14:46] LABS: Albumin Level 4.9 g/dl (3.5-5.0); Albumin/Globulin Ratio 1.8 (1.1-1.8); Alkaline Phosphatase 92 U/L (38-126); Bilirubin,Total 0.3 mg/dl (0.2-1.3); Calcium 10.1 mg/dl (8.4-10.2); Globulin 2.8 g/dL (1.3-3.2); Glucose 86 mg/dl (74-100); Lipase 35 U/L (23-300); Total Protein,Serum 7.7 g/dl (6.3-8.2)
== END ==
PROVIDERS: PCP Emergency Medicine; Visit Provider Emergency Medicine
DX: R10.9 Unspecified abdominal pain (principal)
CPT/HCPCS: 36415; 76705; 80053; 81001; 82150; 83690; 85025

== ENCOUNTER → 2022-01-25 10:28 | Outpatient (CLI) | payer OTHER, SELFPAY ==
--- NOTE | 2022-01-25 10:29 | NM_ITS ---
FINAL REPORT CLINICAL HISTORY: gallbladder disease,U/S SHOWED SLUDGE AND SMALL POLYP. PT DID COMPLAIN OF EPIGASTRIC PAIN WITH CCK FINDINGS: HEPATOBILIARY SCAN WITH CCK INJECTION Following intravenous administration of approximately 8.04 of technetium Choletec, multiple scintigraphic images were obtained. The hepatic parenchymal phase shows homogeneous distribution of the tracer throughout the liver. Prompt appearance of tracer is noted in the intrahepatic and extrahepatic biliary systems. The gallbladder visualizes normal. Biliary to bowel transit is within normal limits. Following intravenous 1.5 mcg CCK injection, gallbladder ejection fraction is estimated to be 84 %. IMPRESSION: Normal gallbladder ejection fraction of 84 %. Reviewed, Interpreted and Dictated by Shaun Frias III, MD Transcribed by Chris Millan Authenticated and [facility]
== END ==
PROVIDERS: PCP Emergency Medicine; Visit Provider Emergency Medicine
DX: K82.8 Other specified diseases of gallbladder (principal)
CPT/HCPCS: 78227; A9537; J2805

== ENCOUNTER → 2023-01-04 15:58 | Outpatient (CLI) | payer OTHER, SELFPAY ==
[2023-01-04 12:45] LABS: Adenovirus,PCR Not Detected (NotDetected); Bordetella Pertussis Not Detected (NotDetected); Chlamydophila Pneumoniae, PCR Not Detected (NotDetected); Coronavirus 19, PCR Not Detected (NotDetected); Coronavirus 229E Not Detected (NotDetected); Coronavirus NL63 Not Detected (NotDetected); Coronavirus OC43 Not Detected (NotDetected); Coronovirus HKU1,PCR Not Detected (NotDetected); Human Metapneumovirus Not Detected (NotDetected); Influenza A, PCR Not Detected (NotDetected); Influenza AH1, 2009 Not Detected (NotDetected); Influenza AH1, PCR Not Detected (NotDetected); Influenza AH3,PCR Not Detected (NotDetected); Influenza B, PCR Not Detected (NotDetected); Mycoplasma Pneumoniae, PCR Not Detected (NotDetected); Parainfluenza 1, PCR Not Detected (NotDetected); Parainfluenza 2, PCR Not Detected (NotDetected); Parainfluenza 3, PCR Not Detected (NotDetected); Parainfluenza 4, PCR Not Detected (NotDetected); Respiratory Syncytial Virus Not Detected (NotDetected); Rhinovirus/Enterovirus Not Detected (NotDetected)
== END ==
PROVIDERS: PCP Nurse Practitioner Family; Visit Provider Nurse Practitioner Family
DX: R06.02 Shortness of breath (principal)
CPT/HCPCS: 87581; 87632; 87798

== ENCOUNTER 2023-08-22 10:21 | Outpatient (CLI) | payer OTHER, SELFPAY ==
[2023-08-22 19:05] LABS: Basophils % 0.4 % (0.1-2.0); Eosinophils # 0.1 K/mm3 (0.0-0.4); Hematocrit 44.5 % (37.0-47.0); Hemoglobin 14.3 g/dL (12.2-16.2); Lymphocytes # 2.2 K/mm3 (0.7-4.5); Mean Corpuscular HGB Conc 32.1 g/dL (31.8-35.4); Mean Corpuscular Hemoglobin 32.7 pg (27.0-31.2); Mean Platelet Volume 11.3 fl (7.4-10.4); Monocytes # 0.4 K/mm3 (0.1-1.0); Monocytes % 5.1 % (1.7-9.3); Neutrophils % 68.5 % (37.0-80.0); Platelet Count 306 K/mm3 (142-424); Red Blood Count 4.37 M/mm3 (4.20-5.40); Red Cell Distribution Width 13.7 % (11.5-17.5); White Blood Count 8.7 K/mm3 (4.8-10.8)
[2023-08-22 19:28] LABS: Alanine Aminotransferase 40 U/L (12-78); Albumin Level 4.3 g/dl (3.5-5.0); Albumin/Globulin Ratio 1.6 (1.1-1.8); Alkaline Phosphatase 67 U/L (38-126); Anion Gap 15.5 mEq/L (5-15); Aspartate Amino Transferase 33 U/L (14-36); Bilirubin,Total 0.6 mg/dl (0.2-1.3); Blood Urea Nitrogen 10 mg/dl (7-17); Calcium 9.6 mg/dl (8.4-10.2); Carbon Dioxide 25 mmol/L (22.0-30.0); Chloride 105 mmol/L (98-107); Chol/HDL Ratio 4.5 (1-3.5); Cholesterol 285 mg/dl (140-200); Estimated Glomerular Filt Rate 104 ml/min (>60); GFR (African American) 126 ML/MIN (>60); Globulin 2.7 g/dL (1.3-3.2); Glucose 86 mg/dl (74-100); HDL Cholesterol 64 mg/dl (40-60); Potassium 3.5 mmoL/L (3.5-5.1); Sodium 142 mmol/L (136-145); Triglycerides 110 mg/dl (30-150); VLDL Cholesterol 22 mg/dL (0-40)
[2023-08-22 19:40] LABS: Direct LDL Cholesterol 205.57 mg/dL (100-129)
[2023-08-22 19:59] LABS: Thyroid Stimulating Hormone 0.49 uIU/mL (0.465-4.68)
[2023-08-22 20:00] LABS: 25-OH Vitamin D, Total 36.7 ng/mL (30-100)
== END 2023-08-22 23:59 | disposition home or self-care (01) ==
LOC: LAB.DROPOF 08-24 10:21
PROVIDERS: PCP Nurse Practitioner Family; Visit Provider Nurse Practitioner Family
DX: E55.9 Vitamin D deficiency, unspecified (principal); Z68.29 Body mass index [BMI] 29.0-29.9, adult
CPT/HCPCS: 80053; 80061; 82306; 84443; 85025

== ENCOUNTER 2023-09-06 08:23 | Outpatient (CLI) | payer OTHER, SELFPAY ==
--- NOTE | 2023-09-06 08:23 | MM_ITS ---
PROCEDURE INFORMATION: Exam: MG Bilateral Screening 3D Mammography Exam date and time: 09/06/2023 8:15 AM Age: 52 years old Clinical indication: Screening examination TECHNIQUE: Imaging protocol: Bilateral Screening tomosynthesis and 2D mammography including computer-aided detection (CAD) when performed. COMPARISON: MG SCBI MM Dig screening mamm BI w/CAD 11/22/2017 4:58 PM FINDINGS: MAMMOGRAPHY: Breast composition: There are scattered areas of fibroglandular density. Mass: None. Architectural distortion: None. Calcifications: No suspicious calcifications. Asymmetric density: None. Skin thickening: None. Axillary adenopathy: None. IMPRESSION: No mammographic evidence of malignancy. Annual screening is recommended unless otherwise clinically indicated. ASSESSMENT: BI-RADS Category 1: Negative
== END 2023-09-06 23:59 | disposition home or self-care (01) ==
LOC: RAD 08:23
PROVIDERS: PCP Nurse Practitioner Family; Visit Provider Nurse Practitioner Family
DX: Z12.31 Encounter for screening mammogram for malignant neoplasm of breast (principal); R07.89 Other chest pain
CPT/HCPCS: 77063; 77067

== ENCOUNTER 2024-02-28 08:33 | Outpatient (CLI) | payer OTHER, SELFPAY ==
[2024-02-28 18:04] LABS: Coronavirus 19, PCR Not Detected (NotDetected); Influenza A, PCR Not Detected (NotDetected); Influenza B, PCR Not Detected (NotDetected)
== END 2024-02-28 23:59 | disposition home or self-care (01) ==
LOC: LAB.DROPOF 02-29 07:25
PROVIDERS: PCP Nurse Practitioner Family; Visit Provider Nurse Practitioner Family
DX: R39.9 Unspecified symptoms and signs involving the genitourinary system (principal); R68.89 Other general symptoms and signs; J02.9 Acute pharyngitis, unspecified; Z72.0 Tobacco use
CPT/HCPCS: 87086; 87088; 87186; 87636

== ENCOUNTER 2024-03-05 09:27 | Emergency (ER) | payer OTHER, SELFPAY ==
[2024-03-05 09:28] VITALS: BP 144/79; PULSE 89; RESP 18; TEMP 36.6; O2SAT 100; BMI 27.6
--- NOTE | 2024-03-05 09:29 | [facility].EDGENADL ---
Discharge Plan Disposition Patient Disposition: Home, Self-Care Condition: Good Prescriptions Prescriptions: No Action hyoscyamine sulfate 0.125 mg tablet 0.125 mg PO QID Qty: 120 1RF benzonatate 100 mg capsule 100 mg PO TID PRN (Reason: cough) Qty: 30 0RF ondansetron 4 mg tablet,disintegrating 4 mg PO Q8H PRN (Reason: nausea and vomiting) Qty: 30 0RF fluconazole 150 mg tablet 150 mg PO DAILY 3 Days Qty: 3 0RF estradiol 0.0375 mg/24 hr patch semiweekly 1 patch transdermal .semiweekly Qty: 8 11RF albuterol sulfate 90 mcg/actuation HFA aerosol inhaler See Rx Instructions .ROUTE .COMPLEX Qty: 7 0RF Dose Instruction: INHALE 1 PUFF BY MOUTH EVERY 6 HOURS Rx Instructions: INHALE 1 PUFF BY MOUTH EVERY 6 HOURS atorvastatin 20 mg tablet 20 mg PO DAILY Qty: 30 2RF clobetasol 0.05 % solution 1 applic topical DAILY Qty: 50 3RF pantoprazole 40 mg tablet,delayed release (DR/EC) See Rx Instructions .ROUTE .COMPLEX Qty: 90 0RF Dose Instruction: Take 1 tablet by mouth once daily Rx Instructions: Take 1 tablet by mouth once daily topiramate 25 mg tablet See Rx Instructions .ROUTE .COMPLEX Qty: 360 0RF Dose Instruction: Take 2 tablets by mouth twice daily Rx Instructions: Take 2 tablets by mouth twice daily Ubrelvy 100 mg tablet See Rx Instructions .ROUTE .COMPLEX Qty: 10 0RF Dose Instruction: TAKE 1 TABLET BY MOUTH ONCE DAILY NEEDED FOR MIGRAINE HEADACHE Rx Instructions: TAKE 1 TABLET BY MOUTH ONCE DAILY NEEDED FOR MIGRAINE HEADACHE nitrofurantoin monohyd/m-cryst [Macrobid] 100 mg capsule 100 mg PO Q12H 10 Days Qty: 20 0RF Rx Instructions: must administer with a meal/food Referrals Follow up/Referrals: Rodney Batres APRN [Primary Care Provider] - See instructions Activity Restrictions/Add. Instructions Additional Instructions/Restrictions: Please continue to take the antibiotic as directed. Please return with any new or worsening symptoms. Clinical Impressions Clinical Impression: Cystitis Instructions Patient Instructions: DI for Urinary Tract Infection (UTI), DI for Urinary Tract Infection in Children Print Language Print Language: Portuguese Discharge ED Provider: Carlee,Vicente General Adult HPI General Chief complaint: Urogenital-Female Stated complaint: UTI Time Seen by Provider: 03/05/24 09:29 History of Present Illness HPI narrative: The patient presents with a chief complaint of a urinary tract infection (UTI) that has tested positive for E. coli. The patient reports being prescribed nitrofurantoin and has taken four doses since Sunday night, but notes that the medication is not alleviating symptoms. The patient expresses concern due to having only one kidney, which is congenital, and is experiencing spasms in the kidney, chills, and a general feeling of being unwell. The patient mentions working a shift from 2 PM to 1 AM and experiencing worsening symptoms, including kidney spasms, which led to being sent home from work. The patient has never had a kidney infection before and describes feeling very bad overall. Additionally, the patient reports having an ear infection in the left ear. Previous tests for strep, COVID, and flu were conducted and returned negative results. The patient was initially put on cefdinir before the culture results were available. The patient is concerned about the solitary kidney and the ineffectiveness of the current antibiotic treatment. The patient clarifies that she received the urinalysis results on Sunday and started taking the medication Sunday night after work. She has taken four doses so far: Sunday morning, Sunday night, and Sunday. The patient mentions feeling horrible and describes symptoms of chills and overall achiness. She also notes that she was sent home from work due to the kidney spasms. Please note that above description of symptoms, in this electronic medical record under categorization of recalled from ER triage doctor by RN are reflective of an initial nursing assessment, however, is not reflective of my full history and physical exam that was personally taken and clarified. Consequentially, this preceding description of symptoms, which may include the patient's categorized chief complaint in the EMR, do not reflect my personal clinical impression, and the ultimate description of history of present illness and patient stated complaints should be deferred to this section of the note. Unless stated otherwise or congruent with this section of the note, additional signs, symptoms, or incongruence should be interpreted as inaccurate with my clinical impression. Related Data Previous Rx's ?Medication ?Instructions ?Recorded estradiol 0.0375 mg/24 hr 1 patch transdermal .semiweekly #8 09/05/23 semiweekly transdermal patch ea albuterol sulfate 90 mcg/actuation See Rx Instructions .Route 08/02/23 aerosol inhaler .COMPLEX #7 ea hyoscyamine sulfate 0.125 mg tablet 0.125 mg PO QID #120 tabs 08/22/23 atorvastatin 20 mg tablet 20 mg PO DAILY #30 tabs 08/24/23 clobetasol 0.05 % scalp solution 1 applic topical DAILY #50 mL 01/02/24 pantoprazole 40 mg tablet,delayed See Rx Instructions .Route 02/08/24 release .COMPLEX #90 tabs topiramate 25 mg tablet See Rx Instructions .Route 02/08/24 .COMPLEX #360 tabs ubrogepant 100 mg tablet (Ubrelvy) See Rx Instructions .Route 02/08/24 .COMPLEX #10 tabs benzonatate 100 mg capsule 100 mg PO TID PRN cough #30 caps 02/28/24 fluconazole 150 mg tablet 150 mg PO DAILY 3 days #3 tabs 02/28/24 ondansetron 4 mg disintegrating 4 mg PO Q8H PRN nausea and 02/28/24 tablet vomiting #30 tabs nitrofurantoin 100 mg PO Q12H 10 days #20 caps 03/03/24 monohydrate/macrocrystals 100 mg capsule (Macrobid) Allergies Allergy/AdvReac Type Severity Reaction Status Date / Time codeine AdvReac Intermediate vomiting Verified 02/28/24 08:16 [facility] Disclaimer: The information contained in this section may have been updated after the patient was seen, as this information can be updated by other users. 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 Other Medical History Have you received the Flu Vaccine for this season: Yes Have you received the Pneumonia Vaccine: No ROS Obtained: Yes other As per HPI Physical Exam General General appearance: alert and in no apparent distress Head Head exam: atraumatic and normocephalic Eye Eye exam: Present normal appearance Neck Neck exam: Present normal inspection Chest Chest inspection: Present normal inspection and symmetric chest wall rise Respiratory Respiratory exam: Present normal lung sounds bilaterally; Absent respiratory distress Cardiovascular Cardiovascular exam: Present regular rate and normal rhythm Abdominal Exam Abdominal exam: Present soft Neurological Exam Neurological exam: Present alert and oriented X3 Psychiatric Psychiatric exam: Present normal affect and normal mood Skin Skin exam: Present warm and dry Medical Decision Making Medical Records Medical records reviewed: Yes I reviewed the patient's medical records. Screening: Per USPSTF and CDC recommendations, given the prevalence of disease in our region, it is our hospital?s policy to screen for HIV and viral Hepatitis for all patients aged 18 and over and those with ongoing risk factors. John Inquiry Pt receiving controlled substance: No Vital Signs: 03/05/24 09:28 03/05/24 09:45 03/05/24 11:08 Temperature 97.9 F 97.9 F Temperature Source Oral Pulse Rate 85 70 Pulse Rate [Right] 89 Respiratory Rate 18 16 Blood Pressure 144/79 H 116/64 Blood Pressure [Right Arm] 144/79 H Blood Pressure Mean [Right Arm] 100 Blood Pressure Source [Right Arm] Automatic Cuff 02 Sat by Pulse Oximetry 100 100 Oxygen Delivery Method Room Air Room Air Lab Data Lab Results 03/05/24 09:33: Urine Color Yellow, Urine Appearance Clear, Urine pH 6.0, Ur Specific [place] 1.020, Urine Protein Negative, Urine Glucose (UA) Trace, Urine Ketones Trace, Urine Blood 1+ A, Urine Nitrate Negative, Urine Bilirubin Negative, Urine Urobilinogen 0.2, Ur Leukocyte Esterase Negative, Urine RBC 3-5, Urine WBC None, Ur Squamous Epith Cells 10-20, Urine Bacteria Trace 03/05/24 09:55: WBC 9.2, RBC 4.45, Hgb 14.6, Hct 43.5, MCV 97.8, MCH 32.8 H, MCHC 33.5, RDW 12.9, Plt Count 310, MPV 7.7, Neut % (Auto) 80.8 H, Lymph % (Auto) 11.9, [place] % (Auto) 3.7, Eos % (Auto) 3.0, Baso % (Auto) 0.5, Neut # (Auto) 7.5, Lymph # (Auto) 1.1, [place] # (Auto) 0.3, Eos # (Auto) 0.3, Baso # (Auto) 0.1, Sodium 141, Potassium 3.7, Chloride 112 H, Carbon Dioxide 18 L, Anion Gap 14.7, BUN 13, Creatinine 0.80, Estimated Creat Clear 89, Estimated GFR 74, Est GFR ( Amer) 90, Glucose 97, Calcium 9.2, Total Bilirubin 0.6, AST 33, ALT 43, Alkaline Phosphatase 58, Total Protein 7.3, Albumin 4.6, Globulin 2.7, Albumin/Globulin Ratio 1.7, Hepatitis C Antibody Non reactive, HIV 1&2 Antibody Rapid Nonreactive 03/05/24 09:55 03/05/24 09:55 Orders (Tests/Meds): ORDERS Category Date Time Status CBC w/Auto Diff [Complete Blood Count Auto Diff] Stat Lab 03/05/24 09:55 Completed CMP [Comprehensive Metabolic Panel] Stat Lab 03/05/24 09:55 Completed HIV (1&2) Antibody Rapid Stat Lab 03/05/24 09:55 Completed Hep C Ab with Reflex to RNA Stat Lab 03/05/24 09:55 Completed UA [Urinalysis and Microscopic] Stat Lab 03/05/24 09:33 Completed Medical Decision Narrative: Patient with history and exam per above presenting for evaluation of dysuria Diagnoses considered include cystitis, pyelonephritis, no clinical evidence to suggest urolithiasis or perinephric abscess ED workup and treatment included: ORDERS Category Date Time Status CBC w/Auto Diff [Complete Blood Count Auto Diff] Stat Lab 03/05/24 09:55 Completed CMP [Comprehensive Metabolic Panel] Stat Lab 03/05/24 09:55 Completed HIV (1&2) Antibody Rapid Stat Lab 03/05/24 09:55 Received Hep C Ab with Reflex to RNA Stat Lab 03/05/24 09:55 Received UA [Urinalysis and Microscopic] Stat Lab 03/05/24 09:33 Completed Labs were independently interpreted by me, significant for creatinine within normal limits, no acute kidney injury, no leukocytosis Given previous urine culture with susceptibility to p.o. antibiotic, patient is deemed stable for discharge at this time and will continue course of antibiotic with strict return precautions provided. I discussed my clinical impression with patient and answered all questions. At this time, the evidence for any other entities in the differential is insufficient to warrant any further testing or ED observation. This was explained to the patient. The patient was advised that persistent or worsening symptoms require further evaluation. Critical Care Critical Care Time Critical Care Time: No
[2024-03-05 09:45] VITALS: BP 144/79; PULSE 85; O2SAT 100
[2024-03-05 09:53] LABS: Microscopic, Urine URINE MICROSCOPIC (MICROSCOPIC)
[2024-03-05 09:55] LABS: Appearance,Urine CLEAR (Clear); Bilirubin,Urine Negative (Negative); Blood, Urine 1+ (Negative); Color,Urine YELLOW (Yellow); Glucose,Urine (UA) TRACE (Negative); Ketones,Urine TRACE (Negative); Leukocyte Esterase,Urine Negative (Negative); Nitrate,Urine Negative (Negative); Protein,Urine Negative (Negative); Urobilinogen,Urine 0.2 EU/dl (0.2)
[2024-03-05 10:06] LABS: Basophils # 0.1 K/mm3 (0-0.2); Basophils % 0.5 % (0.1-2.0); Eosinophils # 0.3 K/mm3 (0.0-0.4); Hematocrit 43.5 % (37.0-47.0); Hemoglobin 14.6 g/dL (12.2-16.2); Lymphocytes # 1.1 K/mm3 (0.7-4.5); Lymphocytes % 11.9 % (10-50); Mean Corpuscular HGB Conc 33.5 g/dL (31.8-35.4); Mean Corpuscular Hemoglobin 32.8 pg (27.0-31.2); Mean Corpuscular Volume 97.8 fl (81-99); Mean Platelet Volume 7.7 fl (7.4-10.4); Monocytes # 0.3 K/mm3 (0.1-1.0); Monocytes % 3.7 % (1.7-9.3); Neutrophils # 7.5 K/mm3 (1.8-7.8); Neutrophils % 80.8 % (37.0-80.0); Platelet Count 310 K/mm3 (142-424); Red Blood Count 4.45 M/mm3 (4.20-5.40); Red Cell Distribution Width 12.9 % (11.5-17.5); White Blood Count 9.2 K/mm3 (4.8-10.8)
[2024-03-05 10:10] LABS: Bacteria,Urine Trace /lpf
[2024-03-05 10:16] LABS: Alanine Aminotransferase 43 U/L (12-78); Albumin Level 4.6 g/dl (3.5-5.0); Albumin/Globulin Ratio 1.7 (1.1-1.8); Alkaline Phosphatase 58 U/L (38-126); Anion Gap 14.7 mEq/L (5-15); Aspartate Amino Transferase 33 U/L (14-36); Bilirubin,Total 0.6 mg/dl (0.2-1.3); Blood Urea Nitrogen 13 mg/dl (7-17); Calcium 9.2 mg/dl (8.4-10.2); Carbon Dioxide 18 mmol/L (22.0-30.0); Chloride 112 mmol/L (98-107); Creatinine Clearance Estimated 89 mL/min (50-200); Estimated Glomerular Filt Rate 74 ml/min (>60); GFR (African American) 90 ML/MIN (>60); Globulin 2.7 g/dL (1.3-3.2); Glucose 97 mg/dl (74-100); Potassium 3.7 mmoL/L (3.5-5.1); Sodium 141 mmol/L (136-145); Total Protein,Serum 7.3 g/dl (6.3-8.2)
[2024-03-05 11:08] VITALS: BP 116/64; PULSE 70; RESP 16; TEMP 36.6; O2SAT 98
[2024-03-05 13:06] LABS: HIV (1&2) Antibody Rapid NONREACTIVE (NONREACTIVE)
[2024-03-06 06:26] LABS: HCV Ab Non Reactive (Non Reactive)
== END 2024-03-05 11:16 | disposition home or self-care (01) ==
PROVIDERS: Emergency Provider Emergency Medicine; PCP Nurse Practitioner Family
DX: N30.90 Cystitis, unspecified without hematuria (principal); R30.0 Dysuria
CPT/HCPCS: 80053; 81001; 85025; 86803; 87389; 99283

== ENCOUNTER 2024-03-21 12:05 | Outpatient (CLI) | payer OTHER, SELFPAY | END 2024-03-21 23:59 | disposition home or self-care (01) | LOC: LAB.DROPOF 03-23 08:51 | PROVIDERS: PCP Nurse Practitioner Family; Visit Provider Nurse Practitioner Family | DX: N39.0 Urinary tract infection, site not specified (principal) | CPT/HCPCS: 87086 ==

== ENCOUNTER 2024-04-14 13:47 | Outpatient (CLI) | payer OTHER, SELFPAY | END 2024-04-14 23:59 | disposition home or self-care (01) | LOC: LAB.DROPOF 13:47 | PROVIDERS: PCP Nurse Practitioner Family; Visit Provider Nurse Practitioner Family | DX: R05.9 Cough, unspecified (principal); J02.9 Acute pharyngitis, unspecified; H92.03 Otalgia, bilateral; F17.210 Nicotine dependence, cigarettes, uncomplicated | CPT/HCPCS: 87070; 87077; 87186 ==

== ENCOUNTER 2024-12-08 09:52 | Outpatient (RCR) | payer OTHER, SELFPAY | END 2024-12-08 23:59 | disposition home or self-care (01) | LOC: OT 09:52 | PROVIDERS: PCP Nurse Practitioner Family; Visit Provider Orthopaedic Surgery | DX: M75.101 Unspecified rotator cuff tear or rupture of right shoulder, not specified as traumatic (principal); M75.21 Bicipital tendinitis, right shoulder | CPT/HCPCS: 97166 ==

== ENCOUNTER 2025-01-12 17:00 | Outpatient (RCR) | payer OTHER, SELFPAY | END 2025-01-12 23:59 | disposition home or self-care (01) | LOC: OT 17:00 | PROVIDERS: PCP Nurse Practitioner Family; Visit Provider Orthopaedic Surgery | DX: M75.101 Unspecified rotator cuff tear or rupture of right shoulder, not specified as traumatic (principal); M75.21 Bicipital tendinitis, right shoulder | CPT/HCPCS: 97014; 97035; 97110; 97140; 97168; G0283 ==

== ENCOUNTER 2025-01-19 16:35 | Outpatient (CLI) | payer OTHER, SELFPAY ==
--- OUTSIDE RECORDS SUMMARY | 2024-11-25 07:57 | XMS_ITS | Encounter Summary ---
Author Organization [facility] Address [address] [place] [id number] Phone Care Team Providers Care Sander Wooden Pencils Name Role Phone Lenin Brandt MD Unavailable [phone] Encounter Details Date Type Department Care Team (Late st Contact Info) Description 11/25/2024 7:57 AM EDT Anesthesia Event [facility] [address] [place] [id number] Deb Mena CRNA [address] [place] [address] Geovani Church MD [address] [place] [address] Anesthesia Record Procedure Summary Procedure Name Responsible Anesthesiologist Anesthesia Start Time Anesthesia Stop Time SHOULDER ARTHROSCOPY ROTATOR CUFF REPAIR/SUBACROMIAL DECOMPRESSION/HERNAN /BICEP TENODESIS (Right: Shoulder) Deb Mena CRNA 11/25/24 0757 11/25/24 0905 Events Date Time Event Comment 11/25/2024 0739 AN Equip Check 0751 Block/ Injection Placed 0753 0757 An Start 0757 An Start Data 0757 Immediate Pre Anesthetic Ass es 0800 An Induction 0804 An Intubation 0810 Anesthesia Ready 0826 Time out 0826 Incision 0851 An Emergence 0855 An Extubation 0901 an stop data 09 Handoff I completed my SBAR handoff to the receiving nurse which has included the followin. Identification of the patient, family, or patient surrogate 2. Identification of the responsible practitioner 3. Pertinent medical history 4. Surgical procedure and reason for procedure 5. Intraoperative anesthetic management 6. All current lines, drains and respiratory support. 7. Outstanding follow up orders (X-rays, consults etc) 8. Expectations/Plans for the early post-procedure period 9. Opportunity for questions and acknowledgement of understanding from the receiving PACU/ICU contact center team lead 09 An Stop Meds Name Total lidocaine injection 1% 50 mg propofol (DIPRIVAN) injection 240 mg rocuronium (ZEMURON) 10 mg/mL injection 5 mg succinylcholine (ANECTINE) 20 mg/mL inje ction (EDG, KAYLEIGH, FTT) 100 mg phenylephrine 100 mcg/ml 10ml (syringe) 300 mcg dexamethasone (DECADRON) injection 4 mg/ mL 8 mg dexAMETHasone (DECADRON) injection 4 mg ondansetron (ZOFRAN) injection 4 mg /2 m L 4 mg glycopyrrolate (ROBINUL) injection 0.2 m g ceFAZolin (ANCEF) 2 g in sodium chloride IVPB 2 g midazolam (VERSED) injection 2 mg bupivacaine (MARCAINE) injection 0.5% (P F) 30 mL fentaNYL (SUBLIMAZE) injection 100 mcg propofol (DIPRIVAN) infusion 10 mg/mL 12 6,295 mcg lactated ringers infusion 550 mL * Agents Name O2 Et Sevoflurane * Blood No blood administrations on file. Lines, Drains, and Airways Type Details Placement Removal Peripheral IV 11/25/24; 657; 22; Left, Posterior; Hand; thais rn; 1; 11/25/24; 1008; Therapy completed; Catheter intact, Dressing applied, No Complications 11/25/24 0658 by Thais Sepulveda RN 11/25/24 1008 by Kaley Celestin RN Airway Device: ETT- Cuffed; Size: 7 mm; Placement Date: 11/25/24; Placement Time: 803 (created via procedure documentation); Removal Date: 11/25/24; Removal Time: 90011/25/24 0804 by Deb Mena CRNA 11/25/24 0901 by Deb Mena CRNA Incision/Wound 11/25/24; 0826; Clos ed Surgical; Shoulder/Scapula; Right; 11/26/24; 0412 11/25/24 0826 by Halie Richardson RN 11/26/24 0412 by Discharge Provider, Automatic documented in this encounter Social History Tobacco Use Types Packs/Day Years Used Date Smoking Tobacco: Every Day Cigarettes Last attempted to quit: 05/18/2013 Smokeless Tobacco: Never Alcohol Use Standard Drinks/Week Comments Yes 5 (1 standard drink = 0.6 oz pur e alcohol) Sexually Active Control Partners Comments Yes Male Comments No Sex and Gender Information Value Date Recorded Sex Assigned at Not on file Legal Sex Female 3:50 AM EDT Gender Identity Not on file Sexual Orientation Not on file documented as of this encounter Procedure Notes * Deb Mena CRNA - 11/25/2024 8:17 AM EDTAssociated Order(s): Intraop Airway Placement Intraop Airway Placement: Date/Time: 11/25/2024 8:04 AM Induction type: IV Mask size: Standard adult Pre-Oxygenation: Standard Mask ventilation: Easy mask ventilation Technique: Video laryngoscope Laryngoscope blade: Younger Blade size: 3 Grade view: III Airway type: ETT- cuffed Topical Anesthetic/Lubricant: Lubricant jelly Intubation assist devices: Stylet 14fr Airway location: Oral Device size: 7mm Secured at: 21 cm Secured by: Tape Measured from: Teeth Placement verified: Symmetric chest wall motion, End tidal CO2 and Auscultation Condition: Atraumatic and Unchanged Insertion attempts: 1 Attempt 1 by: BM Title: HARRIET * Jonathan Neff MD - 11/25/2024 7:53 AM EDTAssociated Order(s): Peripheral Block by Anesthesia Peripheral Block by Anesthesia Procedure Date/Time: 11/25/2024 7:51 AM Patient location during procedure: pre-op Reason for block: at surgeon's request and post-op pain management Staff and Pre-procedure checks Anesthesiologist: Jonathan Neff MD Performed: anesthesiologist Preanesthetic Checklist: Allergies confirmed, Block plan confirmed, Necessary block equipment present, Supplemental O2 applied, if needed, Anticoagulant confirmed, Block site marked, Patient identified- 2 criteria, Surgical procedure consent verified, Aseptic technique used, Drug/solution labeled, ANTONIO recommended monitors applied, IV access functioning, Sedation given, if needed and Resuscitation equipment available Immediate perianesthetic assessment completed: Yes Patient position: Semi-recumbent Prep: Chloraprep Monitoring: Mental status assessed, O2 Sat and EKG Position: Peripheral Block Block type: Interscalene Block Laterality: Right Injection technique: single-shot Medication(s) Administered: fentaNYL (SUBLIMAZE) injection - Intravenous 100 mcg - 11/25/2024 7:51:00 AM midazolam (VERSED) injection - Intravenous 2 mg - 11/25/2024 7:51:00 AM bupivacaine (MARCAINE) injection 0.5% (PF) - Infiltration 30 mL - 11/25/2024 7:51:00 AM dexAMETHasone (DECADRON) injection - Infiltration 4 mg - 11/25/2024 7:51:00 AM Needle Needle type: Pajunk Needle size: 22Gx2 Nerve localization: ultrasound guidance (Interscalene block- Anterior Scalene and Middle Scalene, upper, middle and lower trunks of the brachial plexus are identified; the tip of the needle and the spread of the local anesthetic around the Brachial Plexus are visualized. Ultrasound image documentation is attached/scanned in epic chart. No anatomical pathology noted during block placement.) Interscalene block- Anterior Scalene and Middle Scalene, upper, middle and lower trunks of the brachial plexus are identified; the tip of the needle and the spread of the local anesthetic around the Brachial Plexus are visualized. Ultrasound image documentation is attached/scanned in epic chart. Noanatomical pathology noted during block placement. Ultrasound probe: linear Ultrasound needle approach: in-plane Assessment Block success: a full evaluation pending Events: Uneventful Heart rate change: no Blood aspirated: no Paresthesia pain: absent Resistance on injection: normal Intermittent incremental injection LA at 5ml Ultrasound Image of the block is attached/scanned to the epic chart. documented in this encounter OR Notes * Anesthesia Postprocedure Evaluation - Jonathan Neff MD - 11/25/2024 1:43 PM EDT Post-Anesthesia Evaluation Note Patient Name: Marilyn Yoon Patient Date: November 25, 2024 Post-Anesthesia Evaluation Patient Location: PACU Post op vitals: stable Nausea controlled: yes Level of consciousness: awake and alert Post anesthesia pain: adequate analgesia Airway patency: patent Respiratory status: spontaneous ventilation Cardiovascular status: stable Hydration status: euvolemic Perioperative complications: NONE Vitals Value Taken Time BP 121/60 11/25/24 09:50 Resp 15 11/25/24 09:55 SpO2 90 % 11/25/24 09:55 Temp 36.7 ??C (98 ??F) 11/25/24 09:05 Pulse 82 11/25/24 09:55 * Anesthesia Preprocedure Evaluation - Deb Mena CRNA - 11/17/2024 2:30 PM EDT Images from the original note were not included. Pre-Anesthesia Evaluation Note Patient Name: Marilyn Yoon Sex: female Patient : 1970 Age: 53 y.o. Patient Date: November 17, 2024 Procedure(s): SHOULDER ARTHROSCOPY ROTATOR CUFF REPAIR/SUBACROMIAL DECOMPRESSION/HERNAN/BICEP TENODESIS (Right: Shoulder) Anesthesia Evaluation Previous anesthesia. 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 Discussed risk that they may be damaged during procedure Opioids Body mass index is 28.34 kg/m??. Anesthesia Plan ASA 3 Last solid intake: The patient has not eaten within the last 8 hours. Last clear liquid intake: The patient has not had clear liquids within the last 2 hours. Last tobacco use: The patient has not used tobacco today. Anesthesia Plan: general and regional Induction: intravenous Monitors: STD Informed consent Anesthetic plan and risks discussed with: patient. Chart Reviewed and patient examined documented in this encounter Plan of Treatment Upcoming Encounters Date Type Department Care Team (Late st Contact Info) Description 02/25/2025 9:15 AM EST [facility] [address] [id number] Addy Gardiner MD [address] [place] [phone] documented as of this encounter Goals Goal Patient Goal Type Associated Problems Recent Progress Patient-Stated? Author Maintain a healthy diet, exercise regularly and maintain an ideal body weight General No Martina Hernandez CMA Stay Tobacco Free Lifestyle Martina Campbell CMA documented as of this encounter Procedures Procedure Name Priority Date/Time Associated Diagnosis Comments INTRAOP AIRWAY PLACEMENT Routine 11/25/2024 8:04 AM EDT PERIPHERAL BLOCK Routine 11/25/2024 7:51 AM EDT documented in this encounter Results * INTRAOP AIRWAY PLACEMENT (11/25/2024 8:04 AM EDT) Narrative [facility] - 11/25/2024 8:04 AM EDT Deb Mena CRNA 11/25/2024 8:18 AM Intraop Airway Placement: Date/Time: 11/25/2024 8:04 AM Induction type: IV Mask size: Standard adult Pre-Oxygenation: Standard Mask ventilation: Easy mask ventilation Technique: Video laryngoscope Laryngoscope blade: Younger Blade size: 3 Grade view: III Airway type: ETT- cuffed Topical Anesthetic/Lubricant: Lubricant jelly Intubation assist devices: Stylet 14fr Airway location: Oral Device size: 7mm Secured at: 21 cm Secured by: Tape Measured from: Teeth Placement verified: Symmetric chest wall motion, End tidal CO2 and Auscultation Condition: Atraumatic and Unchanged Insertion attempts: 1 Attempt 1 by: BM Title: MANAGER INVENTORY us Deb Mena MANAGER INVENTORY CA ANESTHESIA Final Resul t [facility] [address] [place] [address] * Peripheral Block by Anesthesia (11/25/2024 7:51 AM EDT) Narrative [facility] - 11/25/2024 7:51 AM EDT Jonathan Neff MD 11/25/2024 7:54 AM Peripheral Block by Anesthesia Procedure Date/Time: 11/25/2024 7:51 AM Patient location during procedure: pre-op Reason for block: at surgeon's request and post-op pain management Staff and Pre-procedure checks Anesthesiologist: Jonathan Neff MD Performed: anesthesiologist Preanesthetic Checklist: Allergies confirmed, Block plan confirmed, Necessary block equipment present, Supplemental O2 applied, if needed, Anticoagulant confirmed, Block site marked, Patient identified- 2 criteria, Surgical procedure consent verified, Aseptic technique used, Drug/solution labeled, ANTONIO recommended monitors applied, IV access functioning, Sedation given, if needed and Resuscitation equipment available Immediate perianesthetic assessment completed: Yes Patient position: Semi-recumbent Prep: Chloraprep Monitoring: Mental status assessed, O2 Sat and EKG Position: Peripheral Block Block type: Interscalene Block Laterality: Right Injection technique: single-shot Medication(s) Administered: fentaNYL (SUBLIMAZE) injection - Intravenous 100 mcg - 11/25/2024 7:51:00 AM midazolam (VERSED) injection - Intravenous 2 mg - 11/25/2024 7:51:00 AM bupivacaine (MARCAINE) injection 0.5% (PF) - Infiltration 30 mL - 11/25/2024 7:51:00 AM dexAMETHasone (DECADRON) injection - Infiltration 4 mg - 11/25/2024 7:51:00 AM Needle Needle type: Pajunk Needle size: 22Gx2 Nerve localization: ultrasound guidance (Interscalene block- Anterior Scalene and Middle Scalene, upper, middle and lower trunks of the brachial plexus are identified; the tip of the needle and the spread of the local anesthetic around the Brachial Plexus are visualized. Ultrasound image documentation is attached/scanned in epic chart. No anatomical pathology noted during block placement.) Interscalene block- Anterior Scalene and Middle Scalene, upper, middle and lower trunks of the brachial plexus are identified; the tip of the needle and the spread of the local anesthetic around the Brachial Plexus are visualized. Ultrasound image documentation is attached/scanned in epic chart. No anatomical pathology noted during block placement. Ultrasound probe: linear Ultrasound needle approach: in-plane Assessment Block success: a full evaluation pending Events: Uneventful Heart rate change: no Blood aspirated: no Paresthesia pain: absent Resistance on injection: normal Intermittent incremental injection LA at 5ml Ultrasound Image of the block is attached/scanned to the epic chart. us Deb Mena CRNA ANESTHESIA ORDERABLES Final Result [place] [phone] documented in this encounter Visit Diagnoses Not on filedocumented in this encounter Administered Medications Inactive Administered Medications - up to 1 most recent administrations Medication Order MAR Action Action Date Dose Rate Site bupivacaine (MARCAINE/SENSORCAINE) 0.5 % (5 mg/mL) injection Infiltration, ONCE PRN, Starting on Sun11/25/24 at 0751, Until Sun11/25/24 at 0751, Anesthesia Intra-op Given 11/25/2024 7:51 AM EDT 30 mL ceFAZolin (ANCEF) 2 g in sodium chloride IVPB 2 g, Intravenous, ONCE PREPROCEDURE, 1 dose, On Sun11/25/24 at 0615, Administer over 30 Minutes, Administer 30 minutes prior to surgery for patient body weight less than (<) 120 kg, Reason for Therapy: Surgical Prophylaxis, Pre-op (Antibiotic) New Bag 11/25/2024 8:00 AM EDT 2 g dexAMETHasone (DECADRON) injection Infiltration, ONCE PRN, Starting on Sun11/25/24 at 0751, Until Sun11/25/24 at 0751, Anesthesia Intra-op Given 11/25/2024 7:51 AM EDT 4 mg dexAMETHasone (DECADRON) injection Intravenous, PRN (Anesthesia), Starting on Sun11/25/24 at 0815, Until Sun11/25/24 at 0905, Anesthesia Intra-op Given 11/25/2024 8:15 AM EDT 8 mg fentaNYL (SUBLIMAZE) injection Intravenous, ONCE PRN, Starting on Sun11/25/24 at 0751, Until Sun11/25/24 at 0751, Anesthesia Intra-op Given 11/25/2024 7:51 AM EDT 100 mcg glycopyrrolate (ROBINUL) injection Intravenous, PRN (Anesthesia), Starting on Sun11/25/24 at 0824, Until Sun11/25/24 at 0905, Anesthesia Intra-op Given 11/25/2024 8:24 AM EDT 0.2 mg lactated ringers infusion Intravenous, at 100 mL/hr, PREPROCEDURE CONTINUOUS, Starting on Sun11/25/24 at 0602, Until Sun11/26/24 at 0412, To be given in SDS/Pre-op Holding Area, Pre-op (Holding/SDS Meds) IV Restarted 11/25/2024 7:57 AM EDT lidocaine 1% 10 mg/mL (1 %) injection Intravenous, PRN (Anesthesia), Starting on Sun11/25/24 at 0800, Until Sun11/25/24 at 0905, Anesthesia Intra-op Given 11/25/2024 8:00 AM EDT 50 mg midazolam (VERSED) injection Intravenous, ONCE PRN, Starting on Sun11/25/24 at 0751, Until Sun11/25/24 at 0751, Anesthesia Intra-op Given 11/25/2024 7:51 AM EDT 2 mg ondansetron (ZOFRAN) injection Intravenous, PRN (Anesthesia), Starting on Sun11/25/24 at 0815, Until Sun11/25/24 at 0905, Anesthesia Intra-op Given 11/25/2024 8:15 AM EDT 4 mg phenylephrine injection Intravenous, PRN (Anesthesia), Starting on Sun11/25/24 at 0826, Until Sun11/25/24 at 0905, Anesthesia Intra-op Given 11/25/2024 8:42 AM EDT 100 mcg propofol (DIPRIVAN) infusion 10 mg/mL Intravenous, CONTINUOUS PRN, Starting on Sun11/25/24 at 0815, Until Sun11/25/24 at 904, Anesthesia Intra-op Rate/Dose Change 11/25/2024 8:47 AM EDT 25 mcg/kg/min 11.31 mL/hr propofoL (DIPRIVAN) injection Intravenous, PRN (Anesthesia), Starting on Sun11/25/24 at 0800, Until Sun11/25/24 at 09, Anesthesia Intra-op Given 11/25/2024 8:50 AM EDT 40 mg rocuronium injection Intravenous, PRN (Anesthesia), Starting on Sun11/25/24 at 0800, Until Sun11/25/24 at 904, Anesthesia Intra-op Given 11/25/2024 8:00 AM EDT 5 mg succinylcholine (ANECTINE) injection Intravenous, PRN (Anesthesia), Starting on Sun11/25/24 at 0801, Until Sun11/25/24 at 904, Anesthesia Intra-op Given 11/25/2024 8:01 AM EDT 100 mg documented in this encounter Care Teams Sander Wooden Pencils Relationship Specialty Start Date End Date DishausionwLenin hunter MD Physician Internal Medicine-Gastroenterology 06/30/13 documented as of this encounter
--- OUTSIDE RECORDS SUMMARY | 2024-11-25 08:15 | XMS_ITS | Encounter Summary ---
Author Organization [facility] Address [address] [place] [id number] Phone Care Team Providers Care Glucose And Syrup Weigher Name Role Phone Lenin Brandt MD Unavailable [phone] Reason for Visit * Auth/Cert/Inpt Specialty Diagnoses / Procedures Referred By Edilberto julio Referred To Contact Orthopedic Surgery Diagnoses Tear of right rotator cuff, unspecified tear extent, unspecified whether traumatic Biceps tendinitis of right upper extremity Tear of right rotator cuff, unspecified tear extent, unspecified whether traumatic [M75.101] Biceps tendinitis of right upper extremity [M75.21] Procedures NM SURGICAL ARTHROSCOPY KLARISSA W/CORACOACRM LIGM RLS NM SURGICAL ARTHROSCOPY SHOULDER W/ROTATOR CUFF RPR NM SURGICAL ARTHROSCOPY SHOULDER BICEPS TENODESIS RIGHT SHOULDER ARTHROSCOPY ROTATOR CUFF REPAIR, SUBACROMIAL DECOMPRESSION, BICEP TENODESIS [facility] [address] [place] [address] Phone: tel: fax: [facility] [place] [address] Phone: tel: fax: Referral ID Status Reason Start Date Expiration Date Visits Re quested Visits Authorized [id number] 1 1 Encounter Details Date Type Department Care Team (Late st Contact Info) Description 11/25/2024 8:15 AM EDT - 11/25/2024 9:05 AM EDT Surgery [facility] [address] [place] [id number] Addy Gardiner MD [address] [address] SHOULDER ARTHROSCOPY ROTATOR CUFF REPAIR/SUBACROMIAL DECOMPRESSION/HERNAN /BICEP TENODESIS Surgery Details Date/Time Status Location OR Service Patient Class Case Class Case Type Trauma Case? 11/25/2024 8:15 AM Posted [facility] OR 4 Orthopedics Outpatient Elective Panel 1 Procedure LRB Anes Op Region Wound Class Comments SHOULDER ARTHROSCOPY ROTATOR CUFF REPAIR/SUBACROMIAL DECOMPRESSION/HERNAN /BICEP TENODESIS Right General w/Block Shoulder Clean RIGHT SHOULDER ARTHROSCOPY ROTATOR CUFF REPAIR, SUBACROMIAL DECOMPRESSION, BICEP TENODESIS Surgeon Surgeon Role Service Panel Addy Gardiner MD Primary Orthopedics 1 Special Needs SCALENE BLOCK bv documented in this encounter Social History Tobacco Use Types Packs/Day Years Used Date Smoking Tobacco: Every Day Cigarettes Last attempted to quit: 05/18/2013 Smokeless Tobacco: Never Tobacco Cessation:Ready to Q uit: Not Asked; Counseling Given: Not Answered Alcohol Use Standard Drinks/Week Comments Yes 5 (1 standard drink = 0.6 oz pur e alcohol) Sexually Active Control Partners Comments Yes Male Comments No Sex and Gender Information Value Date Recorded Sex Assigned at Not on file Legal Sex Female 3:50 AM EDT Gender Identity Not on file Sexual Orientation Not on file documented as of this encounter Last Filed Vital Signs Vital Sign Reading Time Taken Comments Blood Pressure 112/59 11/25/2024 9:05 AM EDT Pulse 102 11/25/2024 9:05 AM EDT Temperature 36.7 C (98 F) 11/25/2024 9:05 AM EDT Respiratory Rate 15 11/25/2024 9:05 AM EDT Oxygen Saturation 90% 11/25/2024 9:05 AM EDT Inhaled Oxygen Concentration - - Weight 75.4 kg (166 lb 3.2 oz) 11/25/2024 6:46 A M EDT Height 160 cm (5' 3 ) 11/25/2024 6:46 AM EDT Body Mass Index 29.44 11/25/2024 6:46 AM EDT documented in this encounter Discharge Instructions * Discharge Instructions* Addy Gardiner MD - 11/17/2024 2:32 PM EDT [facility] Discharge Instructions - Following Anesthesia We appreciate the opportunity to care for you today! Here are a few reminders as you head home: A responsible adult, 18 years or older must be in attendance until tomorrow morning. Rest quietly today. May resume usual diet as tolerated or as directed by your surgeon. Do not drive or operate any machinery until tomorrow morning or as instructed. Do not make any legal or important decisions for the next 24 hours. Do not drink alcoholic beverages or take sleeping pills for 24 hours unless otherwise directed. If you received a nerve block for post-operative pain control, protect your blocked arm/leg. It is numb. Carefully pad your limb to prevent pressure sores and other injuries. Be careful with applyingcold/warm to the blocked limb. Numbness will alter the sensation of the limb and could damage your skin if you cannot correctly feel the temperature. If you have questions or concerns regarding your anesthesia experience, please call our office at . Get Well Soon! [facility] Instructions following Orthopaedic Surgery performed by Addy Gardiner MD 1. A responsible adult, 18 years of age or older, must be in attendance for 24 hours following discharge. 2. Rest quietly today. 3. Start with liquids first like 7-up or Gatorade. If no nausea after 1 hour, proceed with a light meal. 4. Do not drive or operate heavy machinery. 5. No alcoholic beverages for 24 hours, or while taking pain medicine. 6. Do not make any legal or important decisions for at least the next 24 hours. 7. Check temperature over the next five days and call if greater than 101.0 F. 8. Notify physician if you have a rash, hives, difficulty breathing, severe nausea and vomiting. 9. Contact your family physician for questions concerning home medications. 10. If pain gets worse, call your physician. 11. If physician is unavailable, go to the Emergency Room. Shoulder Arthroscopy Discharge Instructions 1. Keep operative shoulder elevated (above the level of the heart). 2. Apply ice pack/ polar care to your shoulder. 3. Dressing: Keep your dressing on, clean and dry until seen back in office in about 7 days. 4. Physical therapy: Yes, begin in 7-10 days. 5. Sling: Until seen by physician. 6.Call physician's office for post-op visit in 7-10 days. 7. Physician's phone number: [phone]. 8. Resume home medications as prescribed by your primary care doctor. 9. Phenergan for nausea and Colace for constipation are already escribed and waiting for you at your pharmacy. 10. If you are in pain management, or get pain meds from another doctor, check with that doctor BEFORE filling new pain meds 11. If you received oxycodone or tramadol, take 2 extra-strength Tylenol (500mg tablet) three timesa day for a week, and the pain medicine/narcotic as needed. Check your other medicines for acetaminophen, and keep total daily dosage at 3000mg. documented in this encounter Medications at Time of Discharge atorvastatin (LIPITOR) 20 mg Oral TabletIndications:Mi xed hyperlipidemia Take 1 Tab by mouth nightly. at bedtime 30 Tab 3 02/02/2017 docusate sodium (COLACE) 100 mg Oral Capsule Take one capsule three times a day while on pain meds 90 Capsule 11/25/2024 ergocalciferol (VITAMIN D) 50,000 unit Oral Capsule Take 50,000 Units by mouth once a week. oxyCODONE (ROXICODONE) 5 mg Oral Tablet Take 1 Tablet by mouth every 4 hours as needed for Major Surgery/Traum a (G89.18) for up to 28 doses. 28 Tablet 11/25/2024 predniSONE (DELTASONE) 10 mg Oral TabletIndications:Ri ght anterior shoulder pain Take 4 tabs a day for 2 days, then 3 tabs a day for 2 days, then 2 tabs a day for 2 days, then one tab a day for four days 22 Tablet 10/28/2024 progesterone (PROMETRIUM) 200 mg Oral Capsule 10/28/2022 promethazine (PHENERGAN) 25 mg Oral Tablet Take 1 Tablet by mouth every 6 hours as needed for Nausea for up to 20 doses. 20 Tablet 11/25/2024 PROTONIX 40 mg Oral Tablet, Delayed Release (E.C.) 10/28/2021 TOPAMAX 25 mg Oral Tablet 11/16/2020 UBRELVY 100 mg Oral Tablet 11/07/2024 documented as of this encounter Ordered Prescriptions Prescription Sig Dispense Quantity Refills Last Filled Start Date End Date docusate sodium (COLACE) 100 mg Oral Capsule Take one capsule three times a day while on pain meds 90 Capsule 11/25/2024 oxyCODONE (ROXICODONE) 5 mg Oral Tablet Take 1 Tablet by mouth every 4 hours as needed for Major Surgery/Traum a (G89.18) for up to 28 doses. 28 Tablet 11/25/2024 promethazine (PHENERGAN) 25 mg Oral Tablet Take 1 Tablet by mouth every 6 hours as needed for Nausea for up to 20 doses. 20 Tablet 11/25/2024 documented in this encounter Discharge Disposition Disposition Code Departure Means Destination Home or Self Care documented in this encounter Progress Notes * Kaley Celestin RN - 11/25/2024 9:27 AM EDT Dc instructions reviewed with pts lois. Verbalized understanding. VSS. Pt taken out in wheelchair. documented in this encounter Procedure Notes * Addy Gardiner MD - 11/25/2024 11:38 AM EDT DATE OF SERVICE: 11/25/2024 PREOPERATIVE DIAGNOSES: 1. Right shoulder rotator cuff tear. 2. Subacromial impingement. 3. Biceps tendinopathy. POSTOPERATIVE DIAGNOSES: 1. Right shoulder rotator cuff tear. 2. Subacromial impingement. 3. Biceps tendinopathy. 4. Labral tearing. OPERATION PERFORMED: 1. Right shoulder arthroscopic rotator cuff repair. 2. Right shoulder arthroscopic subacromial decompression with acromioplasty. 3. Right shoulder arthroscopic biceps tenodesis. SURGEON: Addy Gardiner MD PHYSICAL THERAPY PROFESSOR: Tiffanie Amezcua NP, [employer]. Motorboat Operator necessary. She actively assisted with patient positioning, instrumentation, retraction, and suture management. ANESTHESIA: General with block. ESTIMATED BLOOD LOSS: Minimal. COMPLICATIONS: None apparent. INDICATIONS FOR PROCEDURE: The patient is a 53-year-old female who injured her right shoulder. She has tried and failed conservative treatment and presents now for surgical intervention. The risks and benefits of surgery as well as alternatives were discussed with her at length prior to the procedure. She understands in general there are no guarantees that surgery would make it better and could be possibly worse after surgery. Despite the risks involved with surgery and despite the lack of guarantee that she would be made better by surgery, would still like to proceed. Questions were elicited and answered fully to her satisfaction. Again, no guarantees were expressed or implied. DESCRIPTION OF PROCEDURE: Once informed consent was obtained and preoperative site marking was performed, the patient was appropriately identified in the operating room and placed supine on the operating room table. Preoperative antibiotics and general anesthesia were administered. She was then placed in a beach chair position. Examination under anesthesia revealed full range of motion of her shoulder with no instability.Her right upper extremity was then prepped and draped in usual sterile fashion. A timeout was performed. A standard posterior portal was created followed by an anterior portal under direct vision. Initial examination of the glenohumeral joint revealed extensive tendinopathy of the biceps tendon extending into the end of the labrum. The tendon was pierced with an 18-gauge needle and 0-PDS was brought through and was released with later tenodesis by the rotator cuff repair. There was a full-thickness cuff tear noted from the bursal side. I cleaned up the frayed labrum with a shaver to stable labrum. Articular surfaces looked good. The scope was taken out and redirected in the subacromial space where a thick inflamed bursa was encountered. We removed the shaver and VAPR wand exposing a largeanterior acromial hook. The anterior acromial hook was removed with a rcihard, creating a type I acromion. Copious irrigation flushed the shoulder and debris was removed. Rotator cuff tear was visualized from the bursal side and found to be full-thickness. It was freshened up with a shaver and a Helixdouble suture and suture anchor was placed. All four strands were brought up through the rotator cuff and they were secured with sliding knots backed by half-hitches. This did an excellent job of repairing the rotator cuff in that area. The anterior strands of the anchor were also brought through the biceps tendon for a bony biceps tenodesis. The PDS was then also brought out through the lateral portal after again the biceps had been released and it was tied over a soft tissue bridge, so she had both a bony and a soft tissue biceps tenodesis. Then, copious irrigation was flushed throughout the shoulder. Instruments were removed. Wounds were closed with 4-0 Vicryl and Steri-Strips. A steriledressing was applied. The patient tolerated the procedure well and transferred to the recovery roomin stable condition. Postoperatively, the patient is in a sling. Follow up in my office in about one week for wound check. Addy Gardiner MD [facility] TID: [id number] RECEIPT: [id number] * Addy Gardiner MD - 11/25/2024 8:15 AM EDT [id number] * Addy Gardiner MD - 11/25/2024 8:15 AM EDT [facility] OPERATIVE/PROCEDURE NOTE Marilyn Yoon November 25, 2024 PRE-OP DIAGNOSIS: Tear of right rotator cuff, unspecified tear extent, unspecified whether traumatic [M75.101] Biceps tendinitis of right upper extremity [M75.21] POST-OP DIAGNOSIS: Tear of right rotator cuff, unspecified tear extent, unspecified whether traumatic [M75.101]Biceps tendinitis of right upper extremity [M75.21] PROCEDURE(S): Procedure(s): RIGHT SHOULDER ARTHROSCOPY ROTATOR CUFF REPAIR, SUBACROMIAL DECOMPRESSION, BICEP TENODESIS SURGEON(S): Surgeons and Role: * Addy Gardiner MD - Primary PHYSICAL THERAPY PROFESSOR: Tiffanie Amezcua NP/JENIFER An information assistant was necessary as she actively assisted with instrumentation, retraction, reduction, and suture management. ANESTHESIA: General w/Block ESTIMATED BLOOD LOSS: approx 5ml or as listed by anesthesia SPECIMEN: * No specimens in log * DISPOSITION/POST PROC COURSE: Stable -> Recovery Room Addy Gardiner MD Date: 11/25/2024 * Addy Gardiner MD - 11/25/2024 8:15 AM EDT Just got off phone with [facility], discussed surgical findings and answered all questions documented in this encounter Nursing Notes * Meri Sepulveda RN - 11/25/2024 8:02 AM EDT Pt tolerated preop block well, VSS, at bedside, OR ready for pt. * Petra Sibley RN - 11/14/2024 10:59 AM EDT Images from the original note were not included. PREPARING FOR YOUR SURGERY Date of Surgery: 11/25/24 Time of Surgery: Your surgeon's office will notify you of your scheduled arrival time. Medications on the Day of Surgery Take the following medications on the morning of surgery: topamax, pantoprazole Medications to hold prior to surgery; Hold any anti-inflammatory, aspirin, or supplements for 7 days prior to the procedure, unless otherwise informed by your physician. If you are taking blood-thinners, reach out to the prescribing physician for instructions on when to stop this medication prior to your procedure. Food, Drinks, Tobacco Do not eat or drink anything after midnight. This includes gum, mints, candy, chewing tobacco, and dip. No exceptions or substitutions to these restrictions. Do not smoke, vape, or use any type of tobacco or marijuana products within 24 hours prior to surgery. Smoking will also slow your rate of healing. It is advised that you do not smoke during the healing process. No alcohol 24 hours prior to surgery. Inside Finisher It is important to have a Inside Finisher, someone who is 18 years or older, to accompany you and remain in the facility for the duration of your surgery. This person should be available for the Perioperative Team, which includes your surgeon, to communicate with before, during and after your surgery. Because you are receiving anesthesia, someone is needed to drive you home and remain with you for at least 24 hours after surgery to make sure you are safe during that time We also recommend that no children be present on the day of surgery. If you have a concern, please reach out to our department [phone]. Hygiene [place] your teeth and gargle the morning of surgery. Shower the morning of surgery or the night before. Do not wear makeup (including eye makeup) lotion, powder, deodorant, perfume, or cologne. Do not shave the operative extremity or near the operative area. Remove nail tanzanian prior to surgery. This includes artificial nails and gel nail tanzanian. Personal Items Wear clean, simple, loose-fitting clothing (no jeans) and sturdy shoes (no flip flops, slides or crocs) to the surgery center. Do not bring unnecessary valuables with you. It is policy that [facility] does not assume responsibility for lost, stolen or broken personal items that are brought in. Exceptions may be considered for items which are considered necessary for your healthcare. These items will be formally documented. Remove all jewelry prior to surgery to prevent injury. We will not tape wedding rings/bands Remove all body piercings prior to arrival. Plastic inserts are acceptable. If you have dentures, they may need to be removed before going into the operating room. We will have a case for them. Glasses and contacts will need to be removed prior to surgery. Please bring a case for them. If you have hearing aids, please wear them to the hospital and bring a case. Bring with You Bring a copy of your Living Will and/or Durable Power of Glass Artist for Healthcare. Bring any medical equipment that your surgeon advises you to use for postoperative care such as braces, slings, boots, crutches, walkers, etc. Notify the Surgeon Notify your surgeon if you develop any illness (fever, cold, cough, sore throat, nausea, vomiting, skin rashes etc.) between now and surgery time Notify your surgeon and Pre-admission testing ([phone]) if you have any changes in your healthconditions or if any new medications are ordered between now and surgery.. Questions or Concerns? If you have any questions or concerns, feel free to call the Pre-Admission testing department at [phone]. We want to make sure you feel safe and have an excellent experience while you are here. Our address is [address] [place] [address] Do not reply to this message through [employer] as it may not be answered promptly. documented in this encounter Plan of Treatment Upcoming Encounters Date Type Department Care Team (Late st Contact Info) Description 02/25/2025 9:15 AM EST Office Visit Roseline RAMIREZ [address] [address] Addy Gardiner MD [address] [address] documented as of this encounter Goals Goal Patient Goal Type Associated Problems Recent Progress Patient-Stated? Author Maintain a healthy diet, exercise regularly and maintain an ideal body weight General No Martina Hernandez CMA Stay Tobacco Free Lifestyle Martina Campbell CMA documented as of this encounter Procedures Procedure Name Priority Date/Time Associated Diagnosis Comments NM SURGICAL ARTHROSCOPY SHOULDER BICEPS TENODESIS 11/25/2024 7:57 AM EDT Tear of right rotator cuff, unspecified tear extent, unspecified whether traumatic Biceps tendinitis of right upper extremity Special Needs SCALENE BLOCK bv NM SURGICAL ARTHROSCOPY SHOULDER W/ROTATOR CUFF RPR 11/25/2024 7:57 AM EDT Tear of right rotator cuff, unspecified tear extent, unspecified whether traumatic Biceps tendinitis of right upper extremity Special Needs SCALENE BLOCK bv NM SURGICAL ARTHROSCOPY KLARISSA W/CORACOACRM LIGM RLS 11/25/2024 7:57 AM EDT Tear of right rotator cuff, unspecified tear extent, unspecified whether traumatic Biceps tendinitis of right upper extremity Special Needs SCALENE BLOCK bv documented in this encounter Visit Diagnoses Diagnosis Tear of right rotator cuff Biceps tendinitis of right upper extremity Tear of right rotator cuff, unspecified tear extent, unspecified whether traumatic Biceps tendinitis of right upper extremity documented in this encounter Admitting Diagnoses Diagnosis Tear of right rotator cuff Biceps tendinitis of right upper extremity documented in this encounter Administered Medications Inactive Administered Medications - up to 1 most recent administrations Medication Order MAR Action Action Date Dose Rate Site acetaminophen (TYLENOL) tablet 1,000 mg 1,000 mg, Oral, PREPROCEDURE, 1 dose, Starting on Sun11/25/24 at 0602, Until Sun11/25/24 at 0659, Coanalgesic, Do not give if patient received acetaminophen within the last 6 hours Maximum adult dose of acetaminophen is 4000 mg from all sources in 24 hours., Pre-op (Holding/SDS Meds) Given 11/25/2024 6:59 AM EDT 1,000 mg aprepitant (EMEND) capsule 40 mg 40 mg, Oral, ONCE, 1 dose, On Sun11/25/24 at 0815, Pre-op (Holding/SDS Meds) Given 11/25/2024 7:45 AM EDT 40 mg droPERidol (INAPSINE) injection 0.625 mg 0.625 mg, Intravenous, PRN, Starting on Sun11/25/24 at 0852, Until Sun11/25/24 at 1651, Nausea, If unable to give zofran. Give second dose if nausea unrelieved in 10 minutes. May give total of two doses if needed., PACU Given 11/25/2024 9:17 AM EDT 0.625 mg EPINEPHrine HCl (PF) Soln PRN, Starting on Sun11/25/24 at 0828, Until Sun11/25/24 at 1010, Intra-op Given 11/25/2024 8:28 AM EDT 1 mg Right Shoulder lactated ringers infusion Intravenous, at 100 mL/hr, PREPROCEDURE CONTINUOUS, Starting on Sun11/25/24 at 0602, Until Sun11/26/24 at 0412, To be given in SDS/Pre-op Holding Area, Pre-op (Holding/SDS Meds) IV Restarted 11/25/2024 7:57 AM EDT ondansetron (ZOFRAN) injection 4 mg 4 mg, Intravenous, ONCE PRN, 1 dose, Starting on Sun11/25/24 at 0852, Until Sun11/25/24 at 0912, Nausea, Do not give if patient received granisetron (Kytril) or ondansetron (Zofran) within 4 hours., PACU Given 11/25/2024 9:12 AM EDT 4 mg scopolamine (TRANSDERM-SCOP) 1 mg over 3 days 1 Patch 1 Patch, Transdermal, ONCE, 1 dose, On Sun11/25/24 at 0815, Remove old patch at time of administration. Transderm-Scop patch delivers scopolamine 1 mg per 72 hours, Administer over 24 Hours, Pre-op (Holding/SDS Meds) Patch Applied 11/25/2024 7:45 AM EDT 1 Patch Left Ear sodium chloride 0.9 % irrigation PRN, Starting on Sun11/25/24 at 0828, Until Sun11/25/24 at 1010, Intra-op Given 11/25/2024 8:28 AM EDT 3,000 mL Right Shoulder documented in this encounter Historical Medications * This list may reflect changes made after this encounter. Medication Sig Dispense Quantity Refills Last Filled Start D ate End Date TOPAMAX 25 mg Oral Tablet 11/16/2020 UBRELVY 100 mg Oral Tablet 11/07/2024 PROTONIX 40 mg Oral Tablet, Delayed Release (E.C.) 10/28/2021 progesterone (PROMETRIUM) 200 mg Oral Capsule 10/28/2022 added in this encounter Orders Medications Ordered That Sarwat ht Not Have Been Administered Count Last Ordered Date First Ordered Date ceFAZolin (ANCEF) 2 g in sod ium chloride IVPB 1 11/25/2024 fentaNYL (SUBLIMAZE) injection 25 mcg 1 03/2025 HYDROmorphone (DILAUDID) injection 0.5 mg 1 11/25/2024 ondansetron (ZOFRAN-ODT) dis integrating tablet 8 mg 1 11/25/2024 oxyCODONE (ROXICODONE) immed iate release tablet 5 mg 1 11/25/2024 documented in this encounter Care Teams Glucose And Syrup Weigher Relationship Specialty Start Date End Date Lenin Brandt MD Physician Internal Medicine-Gastroenterology 06/30/13 documented as of this encounter
--- OUTSIDE RECORDS SUMMARY | 2024-11-25 08:15 | XMS_ITS | Encounter Summary ---
Author Organization [facility] Address [address] [place] [id number] Phone Care Team Providers Care Signalman Name Role Phone Lenin Brandt MD Unavailable [phone] Reason for Visit * Auth/Cert/Inpt Specialty Diagnoses / Procedures Referred By Edilberto julio Referred To Contact Orthopedic Surgery Diagnoses Tear of right rotator cuff, unspecified tear extent, unspecified whether traumatic Biceps tendinitis of right upper extremity Tear of right rotator cuff, unspecified tear extent, unspecified whether traumatic [M75.101] Biceps tendinitis of right upper extremity [M75.21] Procedures OH SURGICAL ARTHROSCOPY KLARISSA W/CORACOACRM LIGM RLS [place] SURGICAL ARTHROSCOPY SHOULDER W/ROTATOR CUFF RPR [place] SURGICAL ARTHROSCOPY SHOULDER BICEPS TENODESIS RIGHT SHOULDER ARTHROSCOPY ROTATOR CUFF REPAIR, SUBACROMIAL DECOMPRESSION, BICEP TENODESIS [facility] [address] [place] [address] Phone: tel: fax: [facility] [place] [address] Phone: tel: fax: Referral ID Status Reason Start Date Expiration Date Visits Re quested Visits Authorized [id number] 1 1 Encounter Details Date Type Department Care Team (Late st Contact Info) Description 11/25/2024 8:15 AM EDT - 11/25/2024 11:59 PM EDT Hospital Encounter [facility] [address] [place] [address] Addy Gardiner MD [address] [facility] [address] [place] [address] Discharge Disposition: Home or Self Care Social History Tobacco Use Types Packs/Day Years [...] Sign Reading Time Taken Comments Blood Pressure 121/60 11/25/2024 9:50 AM EDT Pulse 82 11/25/2024 9:55 AM EDT Temperature 36.7 C (98 F) 11/25/2024 9:05 AM EDT Respiratory Rate 15 11/25/2024 9:55 AM EDT Oxygen Saturation 90% 11/25/2024 9:55 AM EDT Inhaled Oxygen Concentration - - Weight 75.4 kg (166 lb 3.2 oz) 11/25/2024 6:46 A M EDT Height 160 cm (5' 3 ) 11/25/2024 6:46 AM EDT Body Mass Index 29.44 11/25/2024 6:46 AM EDT documented in this encounter Discharge Instructions * Discharge Instructions* Addy Gardiner MD - 11/17/2024 2:[address] [facility] Discharge Instructions - Following Anesthesia [...] our office at . Get Well Soon! [facility] Home Care Instructions following Orthopaedic Surgery [...] in 7-10 days. 7. Physician's phone number: [phone]. 8. Resume home medications as prescribed by [...] arthroscopic biceps tenodesis. SURGEON: Addy Gardiner MD VP RHEUMATOLOGY: Tiffanie Amezcua NP, VESSEL SPECIALIST. Post Acute Care Nurse necessary. She actively assisted with patient positioning, [...] anterior acromial hook was removed with a richard, creating a type I acromion. Copious irrigation [...] week for wound check. Addy Gardiner MD [facility] TID: [id number] RECEIPT: [id number] * Addy Gardiner MD - 11/25/2024 8:15 AM EDT [id number] * Addy Gardiner MD - 11/25/2024 8:[address] [facility] OPERATIVE/PROCEDURE NOTE Marilyn Yoon November [...] Role: * Addy Gardiner MD - Primary VP RHEUMATOLOGY: Tiffanie Amezcua NP/JENIFER An phlebotomist lab assistant was necessary as she actively assisted [...] No alcohol 24 hours prior to surgery. Box Office Attendant It is important to have a Box Office Attendant, someone who is 18 years or older, [...] concern, please reach out to our department [phone]. Hygiene [place] your teeth and gargle the morning of surgery. Shower the morning of surgery or the night before. Do not wear makeup (including eye makeup) lotion, powder, deodorant, perfume, or cologne. Do not shave the operative extremity or near the operative area. Remove nail guyanese prior to surgery. This includes artificial nails and gel nail guyanese. Personal Items Wear clean, simple, loose-fitting clothing [...] your Living Will and/or Durable Power of Vocational Rehabilitation Counselor for Healthcare. Bring any medical equipment that your surgeon advises you to use for postoperative care such as braces, slings, boots, crutches, walkers, etc. Notify the Surgeon Notify your surgeon if you develop any illness (fever, cold, cough, sore throat, nausea, vomiting, skin rashes etc.) between now and surgery time Notify your surgeon and Pre-admission testing ([phone]) if you have any changes in your healthconditions or if any new medications are ordered between now and surgery.. Questions or Concerns? If you have any questions or concerns, feel free to call the Pre-Admission testing department at [phone]. We want to make sure you feel safe and have an excellent experience while you are here. Our address is [address] [place] [address] Do not reply to this message through [employer] as it may not be answered promptly. documented in this encounter Plan of Treatment Upcoming Encounters Date Type Department Care Team (Late st Contact Info) Description 02/25/2025 9:15 AM EST Office Visit [facility] [address] [place] [address] Addy Gardiner MD [address] [place] [address] documented as of this encounter Goals Goal Patient Goal Type Associated Problems Recent Progress Patient-Stated? Author Maintain a healthy diet, exercise regularly and maintain an ideal body weight General No Martina Hernandez CMA Stay Tobacco Free Lifestyle Martina Campbell CMA documented as of this encounter Procedures Procedure Name Priority Date/Time Associated Diagnosis Comments [place] SURGICAL ARTHROSCOPY SHOULDER BICEPS TENODESIS 11/25/2024 7:57 AM EDT Tear of right rotator cuff, unspecified tear extent, unspecified whether traumatic Biceps tendinitis of right upper extremity Special Needs SCALENE BLOCK bv OH SURGICAL ARTHROSCOPY SHOULDER W/ROTATOR CUFF RPR 11/25/2024 7:57 AM EDT Tear of right rotator cuff, unspecified tear extent, unspecified whether traumatic Biceps tendinitis of right upper extremity Special Needs SCALENE BLOCK bv OH SURGICAL ARTHROSCOPY KLARISSA W/CORACOACRM LIGM RLS 11/25/2024 [...] Given 11/25/2024 9:17 AM EDT 0.625 mg lactated ringers infusion Intravenous, at 100 [...] 7:45 AM EDT 1 Patch Left Ear documented in this encounter Historical Medications * [...] in sod ium chloride IVPB 1 11/25/2024 EPINEPHrine HCl (PF) Soln 1 11/25/2024 fentaNYL (SUBLIMAZE) injection 25 mcg 1 03/2025 HYDROmorphone (DILAUDID) injection 0.5 mg 1 11/25/2024 ondansetron (ZOFRAN-ODT) dis integrating tablet 8 mg 1 11/25/2024 oxyCODONE (ROXICODONE) immed iate release tablet 5 mg 1 11/25/2024 sodium chloride 0.9 % irrigation 1 11/26/19 25 documented in this encounter Care Teams Signalman Relationship Specialty Start Date End Date Lenin Brandt MD Physician Internal Medicine-Gastroenterology 06/30/13 documented as of this encounter
--- OUTSIDE RECORDS SUMMARY | 2024-12-03 10:30 | XMS_ITS | Encounter Summary ---
Author Organization [facility] Address [address] [place] [address] Care Team Providers Care Acid Tender Name Role Phone Lenin Brandt MD Unavailable [phone] Reason for Visit * Reason Comments Post-Operative Exam Encounter Details Date Type Department Care Team (Late st Contact Info) Description 12/03/2024 10:30 AM EDT Office Visit [facility] [address] [address] Addy Gardiner MD [address] [place] [address] S/P arthroscopy of shoulder (Primary Dx) Social History Tobacco Use Types Packs/Day Years [...] on file documented as of this encounter Progress Notes * Addy Gardiner MD - 12/03/2024 10:30 AM EDT Images from the original note were not included. Marilyn Yoon 12/03/2024 [id number] Chief Complaint: Post-op shoulder HISTORY: Marilyn Yoon returns today for reevaluation of her Right Shoulder after Shoulder Arthroscopy Rotator Cuff Repair/subacromial Decompression/sasha/bicep Tenodesis - Right on 11/25/2024. She is doing well. No complaints. PHYSICAL EXAMINATION: On examination, wounds look good. No erythema, warmth or sign of infection. She is neurovascularly intact distally. IMPRESSION: Doing well. Plan: I went over the dos and don'ts. I will get her started with physical therapy. I will see her back in about 6 weeks for reevaluation, earlier if she has problems. She likes the plan. Addy Gardiner MD documented in this encounter Plan of Treatment Upcoming Encounters Date Type Department Care Team (Late st Contact Info) Description 02/25/2025 9:15 AM EST Office Visit [facility] [address] [address] Addy Gardiner MD [address] [address] documented as of this encounter Goals Goal Patient Goal Type Associated Problems Recent Progress Patient-Stated? Author Maintain a healthy diet, exercise regularly and maintain an ideal body weight General No Martina Hernandez CMA Stay Tobacco Free Lifestyle No Martina Hernandez CMA documented as of this encounter Visit Diagnoses Diagnosis S/P arthroscopy of shoulder- Primary Other postprocedural status documented in this encounter Care Teams Acid Tender Relationship Specialty Start Date End Date Lenin Brandt MD Physician Internal Medicine-Gastroenterology 06/30/13 documented as of this encounter
--- OUTSIDE RECORDS SUMMARY | 2025-01-14 09:00 | XMS_ITS | Encounter Summary ---
Author Organization [facility] Address [address] [place] [address] Care Team Providers Care Collar Tacker Name Role Phone Lenin Brandt MD Unavailable [phone] Reason for Visit * Reason Comments Follow-up Encounter Details Date Type Department Care Team (Late st Contact Info) Description 01/14/2025 9:00 AM EDT Office Visit [facility] [address] [address] Addy Gardiner MD [address] [place] [address] S/P arthroscopy of shoulder (Primary Dx) Social [...] included. Tiffanie Amezcua APRN/ Orthopaedic Surgery/Sports Medicine [address] [place] [address] Patient Name: Marilyn Yoon [id number] Date of : 1970 Patient Primary Care [...] The patients current sports/work status is: Employer: [email or web address] Here are a few indicators that it???s safe to return to playing sports after your injury and recovery: Absence of pain Absence of swelling and inflammation Amish of full range of motion Regained strength [...] Office Visit [facility] [address] [address] Addy Gardiner MD [address] [place] [address] documented as of this encounter Goals Goal Patient Goal Type Associated Problems Recent Progress Patient-Stated? Author Maintain a healthy diet, exercise regularly and maintain an ideal body weight General Martina Campbell CMA Stay Tobacco Free Lifestyle Martina Campbell CMA documented as of this encounter Visit Diagnoses Diagnosis S/P arthroscopy of shoulder- Primary Other postprocedural status documented in this encounter Care Teams Collar Tacker Relationship Specialty Start Date End Date Lenin Brandt MD Physician Internal Medicine-Gastroenterology 06/30/13 documented as of this encounter
--- OUTSIDE RECORDS SUMMARY | 2025-01-20 01:21 | XMS_ITS | Encounter Summary ---
Author Organization [place] [address] Care Team Providers Care Shrimp Cleaner Name Role Phone Lenin Brandt MD Unavailable [phone] Wilberto Miles DO Primary Care Provider [phone] Encounter Details Date Type Department Care Team (Late st Contact Info) Description 09/11/2019 Lab Requisition [place] [address] Ildefonso Quevedo MD [address] [place] [address] Encounter for screening for other viral diseases Social History Tobacco Use Types Packs/Day Years Used Date Smoking Tobacco: Every Day Cigarettes Last attempted to quit: 05/18/2013 Smokeless Tobacco: Never Alcohol Use Standard Drinks/Week Comments No 0 (1 standard drink = 0.6 oz pur e alcohol) Sexually Active Control Partners Comments Yes Male Comments No Sex and Gender Information Value Date Recorded Sex Assigned at Not on file Legal Sex Female 3:50 AM EDT Gender Identity Not on file Sexual Orientation Not on file documented as of this encounter Plan of Treatment Upcoming Encounters Date Type Department Care Team (Late st Contact Info) Description 02/25/2025 9:15 AM EST Office Visit [facility] [address] [place] [address] Addy Gardiner MD [address] [place] [address] documented as of this encounter Goals Goal Patient Goal Type Associated Problems Recent Progress Patient-Stated? Author Maintain a healthy diet, exercise regularly and maintain an ideal body weight General Martina Campbell CMA Stay Tobacco Free Lifestyle Martina Campbell CMA documented as of this encounter Procedures Procedure Name Priority Date/Time Associated Diagnosis Comments CORONAVIRUS 2019 (COVID-19) - REF LAB Routine 09/10/2019 11:30 AM EDT Encounter for screening for other viral diseases documented in this encounter Results * CORONAVIRUS 2018 (COVID-19) - REF LAB (09/10/2019 11:30 AM EDT) CORONAVIRUS [id number] NEGATIVE Negative 09/12/2019 5:30 PM EDT [facility] Comment: Negative results do not preclude SARS-CoV-2 infection and should not be used as the sole basis for patient management decisions. Negative results must be combined with clinical observations, patient history, and epidemiological information. Swab NASOPHARYNGEAL STRUCTURE / Unknown 09/10/2019 11:30 AM EDT 09/11/2019 6:29 PM EDT Narrative [facility] - 09/12/2019 5:30 PM EDT The SARS-CoV-2 assay is a real-time RT-PCR test intended for the qualitative detection of nucleic acid from the SARS-CoV-2 in respiratory specimens from individuals. Testing is limited to the guidelines of FDA Emergency Use Authorization FDA for performing SARS-CoV-2 testing. All testing is considered laboratory developed and performance characteristics are determined by [facility]. It has not been cleared nor approved by the FDA. The laboratory is accredited through CLIA and deemed qualified to perform high-complexity testing. Such testing is used for clinical purposes and should not be regarded as investigational or for research. [facility] Pat ID: [id number]; [facility] Req Num: [id number]; [facility] Spec ID: [id number] us Ildefonso Quevedo MD LAB SEND OUT ORDERABLES Final Re sult [facility] [address] [phone] documented in this encounter Visit Diagnoses Diagnosis Encounter for screening for other viral diseases documented in this encounter Care Teams Shrimp Cleaner Relationship Specialty Start Date End Date Wilberto Miles DO [address] [place] [address] PCP - General Family Medicine 09/09/19 03/14/20 Lenin Brandt MD Physician Internal Medicine-Gastroenterology 06/30/13 documented as of this encounter
--- OUTSIDE RECORDS SUMMARY | 2025-01-20 01:21 | XMS_ITS | Clinical Summary ---
Author Organization [facility] , [facility] Address [address] [place] [address] Phone Care Team Providers Care Cream Beater Name Role Phone Darvin HAMMOND, Madi Jimenez Unavailable [phone] Jared HAMMOND, Clayton Bailey Primary Care Provider [phone] Reason for Visit and Chief Complaint The Chief Complaint is: Left hip pain Problems Includes: Problems addressed during this encounter and other active Problems Current Visit Onset Date Resolved Date Provider Samm Lance Joint Pain Hip Left 12/22/2021 Kaci Boston MD Active Last Documented On 2 10:41AM ; [facility] Plan of Treatment NON-SURGICAL PLAN: AVOID NORCO MEDICATION: DICLOFENAC 75 MG BID PHYSICAL THERAPY SMOKING CESSATION FOLLOW UP: PRN PAIN - Last Documented On 12/26/2021 11:21AM ; [facility], [facility] Pending Tests Order Diagnosis Results Due Ordering P rovider Therapy - Physical Therapy Hip 12/22/21 Madi Boston MD Last Documented On 2 11:21AM ; [facility] Instructions to patient Intervention and counseling on cessation of tobacco use Last Documented On 2 10:48AM ; [facility], [facility] Lose weight Last Documented On 2 10:48AM ; [facility] Assessments Includes: Assessments from this encounter Findings LEFT HIP GLUTE MEDIUS TENDINOPATHY. - Last Documented On 12/26/2021 11:21AM ; [facility] Instructions Includes: Instructions from this encounter Instructions to patient Intervention and counseling on cessation of tobacco use Last Documented On 2 10:48AM ; [facility] Lose weight Last Documented On 2 10:48AM ; [facility], [facility] Medical Equipment - Implanted Devices Includes: Current Devices No Medical Equipment Recorded Medications Includes: Medications discussed during this encounter and other current Medications New / Renewed during this visit Madi Boston MD on 12/22/2021 Diclofenac Sodium 75 MG Oral Tablet Delayed Release Provider: Madi Boston MD 30 day supply: 60 tablet, 2 refills Diagnosis: twice a day Pharmacy: [facility] [phone], [address] - Last Documented On 2 11:34AM By Yanira Cantor ; [facility], [facility] Current Medications (continue as prescribed) Atorvastatin Calcium 10 MG Oral Tablet 12/22/2021 Pr ovider: Diagnosis: Last Documented On 11:40AM By Ariana Valladares ; [facility], [facility] Adipex-P 37.5 MG Oral Capsule 12/22/2021 Provider: Diagnosis: Last Documented On 2 11:40AM By Ariana Valladares ; [facility], [facility] Topiramate 50 MG Oral Tablet 12/22/2021 Provider: Diagnosis: Last Documented On 2 11:41AM By Ariana Valladares ; [facility], [facility] Ubrelvy 100 MG Oral Tablet 12/22/2021 Provider: Diagnosis: Last Documented On 2 11:41AM By Ariana Valladares ; [facility], [facility] [place] 10-325 MG Oral Tablet 12/22/2021 Provider: Diagnosis: Last Documented On 2 11:41AM By Ariana Valladares ; [facility], [facility] Medications Administered Includes: Administered Medications from this encounter No Administered Medications Recorded Vital Signs Includes: Vital Signs from this encounter Vital Name 12/22/2021 10:48A Blood Pressure Sitting (mmHg) 132/83 Pulse Rate-Sitting (bpm) 73 Height (in) 63 Weight (lb) 160 Body Mass Index (kg/m2) 28.3 Body Surface Area (m2) 1.8 Note: sjs Last Documented: On 12/22/2021 10:48A M ; [facility], [facility] Results Includes: Results discussed during this encounter No Results Recorded For Specified Dates History of Present Illness Includes: History of Present Illness from this encounter LADY Yoon is a 51 year old female. - Symptoms Pain better when walking, standing / Pain worse when resting. - Allergy list reviewed - Problem list reviewed - Medication list reviewed - Pain is throbbing - Pain is dull, aching - Patient pain level from 1-10: 6 - No previous treatment. Social History Description Last Updated Caffeine use 12/22/2021 Last Documented On 2 11:21AM ; [facility], [facility] Yes, current smoker. 12/22/2021 Last Documented On 2 11:21AM ; [facility], [facility] Tobacco use 12/22/2021 Last Documented On 2 11:21AM ; [facility], [facility] No recent change in diet 12/22/2021 Last Documented On 2 11:21AM ; [facility], [facility] Not exercising regularly 12/22/2021 Last Documented On 2 11:21AM ; [facility], [facility] Not using alcohol 12/22/2021 Last Documented On 2 11:21AM ; [facility], [facility] Not using drugs 12/22/2021 Last Documented On 2 11:21AM ; [facility], [facility] Smoking Status Unknown Procedures and Surgical History Includes: Procedures from this encounter Procedures Code Diagnosis Performing Provider Service L ocation Service Date intervention and counseling on cessation of tobacco use 4000F Last Documented On 2 10:48AM ; [facility], [facility] use of tobacco assessment performed 1000F Last Documented On 2 10:48AM ; [facility], [facility] an X-ray was performed 12/22/2021 [facility] [id number] Last Documented On 2 10:47AM ; [facility], [facility] an MRI was performed 10/18/2021 [facility] [id number] Last Documented On 2 10:47AM ; [facility], [facility] Surgical History Last Updated History of back surgery 12/22/2021 Last Documented On 2 11:21AM ; [facility], [facility] Medical History Includes: Medical History addressed during this encounter Description Last Updated Past Surgical History: ACL (L) Knee 11/2021 Last Documented On 2 11:21AM ; [facility] Recent immunization for flu 01/14/2021 0 12/22/2021 Last Documented On 2 11:21AM ; [facility] No recent immunization for pneumococcal pneumonia 12/22/2021 Last Documented On 2 11:21AM ; [facility] Family History Includes: Family History addressed during this encounter Description Last Updated Diabetes mellitus 12/22/2021 Last Documented On 2 11:21AM ; [facility] Family history of heart disease 12/23/19 22 Last Documented On 2 11:21AM ; [facility] Family history of systemic hypertension 12/22/2021 Last Documented On 2 11:21AM ; [facility] Review of Systems Includes: Review of Systems from this encounter Systemic: Not feeling tired, no recent weight loss, and no recent weight gain. Head: Headache. No sinus pain. Eyes: No vision problems and no Cataracts. Glasses/Contacts. No Glaucoma. Otolaryngeal: No hearing loss and no tinnitus. Cardiovascular: No chest pain or discomfort, no palpitations, no Hypertension, and no High Cholesterol. Pulmonary: No daytime asthma symptoms and no chronic cough. No wheezing. Gastrointestinal: No heartburn and no abdominal pain. No Indigestion, no Acid Reflux, no Peptic Ulcer, no GI Stomach Bleed, and no Ulcers. Endocrine: Hot flashes. No muscle weakness, no Diabetes, no Hypothyroid, and no Hyperthyroid. Hematologic: No easy bleeding, no tendency for easy bruising, and no Anemia. Musculoskeletal: No Arthritis. Lower back pain. No soft tissue swelling. Pain localized to one or more joints. Neurological: No dizziness, no convulsions, and no numbness. Psychological: No anxiety, no emotional lability, no depression, and no insomnia. Not crying for no reason. Skin: No dry skin. No Ulcers, no Scars, and no rash. Allergic and Immunologic: No complaint of seasonal allergic reaction. Mental Status Includes: Mental Status from this encounter Description No anxiety Functional Status Includes: Functional Status from this encounter No Functional Status Recorded Physical Exam Includes: Physical Exam from this encounter Allergies Includes: Active Allergies No Known Allergies Encounters Encounter Provider Location Date Check-In Time Check-Out Time Diagnosis Physician Specified Madi Boston MD [facility] 12/23/19 22 9:50AM 11:22AM Insurance Includes: Active Insurance Policies Plan Name Member ID Group # Subscriber Relationship Effect rainer Dates 1 - [employer] [id number] YOONLESLEY 04/2021 - Unknown Clinical Notes Includes: Clinical Notes from this encounter No Clinical Notes Recorded
--- OUTSIDE RECORDS SUMMARY | 2025-01-20 01:21 | XMS_ITS ---
Author Organization [facility] Address [address] [place] [address] Phone Care Team Providers Care Marine Engine Driver Name Role Phone Darvin HAMMOND, Madi Jimenez Unavailable [phone] Jared HAMMOND, Clayton Bailey Primary Care Provider [phone] Problems Includes: Active, inactive, and resolved Problems All Visits Onset Date Resolved Date Provider Condition S tatus Joint Pain Hip Left 12/22/2021 Kaci Boston MD Active Last Documented On 2 10:41AM ; [facility], [facility] Plan of Treatment Instructions to patient Intervention and counseling on cessation of tobacco use Last Documented On 2 10:48AM ; [facility] Lose weight Last Documented On 2 10:48AM ; [facility], [facility] Assessments Includes: Assessments for all patient encounters No Assessments Recorded Instructions Includes: Instructions for all patient encounters Instructions to patient Intervention and counseling on cessation of tobacco use Last Documented On 2 10:48AM ; [facility] Lose weight Last Documented On 2 10:48AM ; [facility], [facility] Medical Equipment - Implanted Devices Includes: Current and historical Devices No Medical Equipment Recorded Medications Includes: Current and historical Medications Current Medications (continue as prescribed) Atorvastatin Calcium 10 MG Oral Tablet 12/22/2021 Pr ovider: Diagnosis: Last Documented On 2 11:40AM By Ariana Valladares ; [facility] Adipex-P 37.5 MG Oral Capsule 12/22/2021 Provider: Diagnosis: Last Documented On 2 11:40AM By Ariana Valladares ; [facility], [facility] Topiramate 50 MG Oral Tablet 12/22/2021 Provider: Diagnosis: Last Documented On 2 11:41AM By Ariana Valladares ; [facility] Ubrelvy 100 MG Oral Tablet 12/22/2021 Provider: Diagnosis: Last Documented On 2 11:41AM By Ariana Valladares ; [facility] Amo 10-325 MG Oral Tablet 12/22/2021 Provider: Diagnosis: Last Documented On 2 11:41AM By Ariana Valladares ; [facility], [facility] Past Medications on file Diclofenac Sodium 75 MG Oral Tablet Delayed Release 12/22/2021 - 03/22/2022 Provider: Madi molina MD Diagnosis: twice a day Last Documented On 2 11:34AM By Yanira Cantor ; [facility], [facility] Medications Administered Includes: Administered Medications in patient's chart No Administered Medications Recorded Results Includes: Results from 01/21/2024 through 01/20/2025 No Results Recorded For Specified Dates History of Present Illness History of Present Illness not supported for this document type No History of Present Illness Recorded Social History Description Last Updated Caffeine use 12/22/2021 Last Documented On 2 11:21AM ; [facility] Yes, current smoker. 12/22/2021 Last Documented On 2 11:21AM ; [facility] Tobacco use 12/22/2021 Last Documented On 2 11:21AM ; [facility], [facility] No recent change in diet 12/22/2021 Last Documented On 2 11:21AM ; [facility] Not exercising regularly 12/22/2021 Last Documented On 2 11:21AM ; [facility] Not using alcohol 12/22/2021 Last Documented On 2 11:21AM ; [facility] Not using drugs 12/22/2021 Last Documented On 2 11:21AM ; [facility] Smoking Status Unknown Procedures and Surgical History Surgical History Last Updated History of back surgery 12/22/2021 Last Documented On 2 11:21AM ; [facility], [facility] Medical History Includes: Medical History in patient's chart Description Last Updated Past Surgical History: ACL (L) Knee 11/2021 Last Documented On 2 11:21AM ; [facility] Recent immunization for flu 01/14/2021 0 12/22/2021 Last Documented On 2 11:21AM ; [facility] No recent immunization for pneumococcal pneumonia 12/22/2021 Last Documented On 2 11:21AM ; [facility] Family History Includes: Family History in patient's chart Description Last Updated Diabetes mellitus 12/22/2021 Last Documented On 2 11:21AM ; [facility] Family history of heart disease 12/23/19 Last Documented On 2 11:21AM ; [facility] Family history of systemic hypertension 12/22/2021 Last Documented On 2 11:21AM ; [facility] Review of Systems Review of Systems not supported for this document type No Review of Systems Recorded Mental Status Description No anxiety Functional Status No Functional Status Recorded Physical Exam Physical Exam not supported for this document type No Physical Exam Recorded Allergies Includes: Active, inactive, and resolved Allergies No Known Allergies Insurance Includes: Active Insurance Policies Plan Name Member ID Group # Subscriber Relationship Effect rainer Dates 1 - [employer] [id number] LESLEY YOON 04/2021 - Unknown Clinical Notes Includes: Signed Clinical Notes starting from 03/30/2022 No Clinical Notes Recorded
--- OUTSIDE RECORDS SUMMARY | 2025-01-20 01:21 | XMS_ITS | Encounter Summary ---
Author Organization [facility] Address [address] [place] [address] Care Team Providers Care Feather Shaper Name Role Phone Lenin Brandt MD Unavailable [phone] Reason for Visit * Reason Onset Date Comments Surgery 11/21/2024 Encounter Details Date Type Department Care Team (Late st Contact Info) Description 11/21/2024 Telephone [facility] [address] [address] Addy Gardiner MD [address] [place] [address] Surgery Social History Tobacco Use Types Packs/Day Years [...] on file documented as of this encounter Miscellaneous Notes * Telephone Encounter - Amie Alejo, Clerical Staff - 11/21/2024 1:13 PM EDT SPOKE TO PATIENT: SX ARRIVAL TIME 6:30 am 11/25/24 JANET DELONG documented in this encounter Plan of Treatment Upcoming Encounters Date Type Department Care Team (Late st Contact Info) Description 02/25/2025 9:15 AM EST Office Visit [facility] [address] [address] Addy Gardiner MD [address] [place] [address] documented as of this encounter Goals Goal Patient Goal Type Associated Problems Recent Progress Patient-Stated? Author Maintain a healthy diet, exercise regularly and maintain an ideal body weight General Martina Campbell CMA Stay Tobacco Free Lifestyle Martina Campbell CMA documented as of this encounter Visit Diagnoses Not on filedocumented in this encounter Care Teams Feather Shaper Relationship Specialty Start Date End Date Lenin Brandt MD Physician Internal Medicine-Gastroenterology 06/30/13 documented as of this encounter
--- OUTSIDE RECORDS SUMMARY | 2025-01-20 01:22 | XMS_ITS | Encounter Summary ---
Author Organization [facility] Address [address] [place] [address] Care Team Providers Care Modular Home Crew Member Name Role Phone Lenin Brandt MD Unavailable [phone] Reason for Referral * Occupational Therapy (Routine) - Pending Review Specialty Diagnoses / Procedures Referred By Edilberto julio Referred To Contact Diagnoses Tear of right rotator cuff, unspecified tear extent, unspecified whether traumatic Addy Gardiner MD [address] [facility] [place] [address] [place] [address] Phone: tel: fax: Referral ID Status Reason Start Date Expiration Date V isits Requested Visits Authorized [id number] Pending Review 12/01/2024 12/01/2025 1 1 Question Answer surgical procedure right rotator cuff repair, SAD, BT Evaluate and Treat Yes Select as appropriate Evaluate and treat appropriately Modalities/Procedures As Indicated Therapeutic Exercise As Indicated Goals: Decrease pain and swelling, Increase function, Increase strength, Increase ROM Additional instructions: Teach HEP, Frequency and duration per therapist discretion Medical Necessity: Promote full function post operatively Encounter Details Date Type Department Care Team (Late st Contact Info) Description 12/01/2024 Orders Only [facility] [address] [address] Trish Grace ATC Tear of right rotator cuff, unspecified tear extent, unspecified whether traumatic (Primary Dx) Social History Tobacco Use Types [...] Description 02/25/2025 9:15 AM EST Office Visit [facility] [address] [address] Addy Gardiner MD [address] [address] Scheduled Referrals Name Type Priority Associated Diagnoses Orde r Schedule AMB REFERRAL TO PHYSICAL THERAPY Outpatient Referral Routine Tear of right rotator cuff, unspecified tear extent, unspecified whether traumatic Ordered: 12/01/2024 documented as of this encounter Goals Goal Patient Goal Type Associated Problems Recent Progress Patient-Stated? Author Maintain a healthy diet, exercise regularly and maintain an ideal body weight General Martina Campbell CMA Stay Tobacco Free Lifestyle No Martina Hernandez CMA documented as of this encounter Visit Diagnoses Diagnosis Tear of right rotator cuff, unspecified tear extent, unspecified whether traumatic- Primary documented in this encounter Care Teams Modular Home Crew Member Relationship Specialty Start Date End Date Lenin Brandt MD Physician Internal Medicine-Gastroenterology 06/30/13 documented as of this encounter
--- OUTSIDE RECORDS SUMMARY | 2025-01-20 01:22 | XMS_ITS | Encounter Summary ---
Author Organization [facility] Address [address] [place] [address] Care Team Providers Care Loan Manager Name Role Phone Lenin Brandt MD Unavailable [phone] Reason for Visit * Reason Onset Date Comments Post-op Call 11/26/2024 Encounter Details Date Type Department Care Team (Late st Contact Info) Description 11/26/2024 Telephone [facility] [address] [facility] [address] [place] [address] Tiffanie Amezcua APRN [address] [place] [address] Post-op Call Social History Tobacco Use Types Packs/Day Years [...] encounter Miscellaneous Notes * Telephone Encounter - Tiffanie Amezcua APRN - 11/26/2024 6:25 PM EDT Postop call: Left a message for Marilyn to call us back if she has any questions or concerns. documented in this encounter Plan of Treatment Upcoming Encounters Date Type Department Care Team (Late st Contact Info) Description 02/25/2025 9:15 AM EST Office Visit [facility] [address] [address] Addy Gardiner MD [address] [address] documented as of this encounter Goals Goal Patient Goal Type Associated Problems Recent Progress Patient-Stated? Author Maintain a healthy diet, exercise regularly and maintain an ideal body weight General No Martina Hernandez CMA Stay Tobacco Free Lifestyle Martina Campbell CMA documented as of this encounter Visit Diagnoses Not on filedocumented in this encounter Care Teams Loan Manager Relationship Specialty Start Date End Date Lenin Brandt MD Physician Internal Medicine-Gastroenterology 06/30/13 documented as of this encounter
--- OUTSIDE RECORDS SUMMARY | 2025-01-20 01:22 | XMS_ITS | Clinical Summary ---
Author Organization [facility] Address [address] [place] [address] Care Team Providers Care Insurance Sales Representative Name Role Phone Denise Goldberg JENIFER Primary Care Provider [phone] Allergies Active Allergy Reactions Criticality Noted Date Comments Codeine Itching Medium 07/06/2011 Tramadol Hives,Itching Medium 01/14/2013 Medications atorvastatin (Lipitor) 10 MG tablet Take 10 mg by mouth every night. 2 Active phentermine (Adipex-P) 37.5 MG tablet TAKE 1 TABLET BY MOUTH ONCE DAILY 30 MINUTES BEFORE OR 1 2 HOURS AFTER BREAKFAST 1 Active topiramate (Topamax) 25 MG tablet Take 50 mg by mouth 2 (two) times a day. 1 Active Active Problems Problem Noted Date Diagnosed Date Left hip pain 09/01/2021 Chronic left-sided low back pain 09/01/2021 Pain in both hands 09/01/2021 Single kidney 09/01/2021 Social History Tobacco Use Types Packs/Day Years Used Date Smoking Tobacco: Every Day Cigarettes 0.3 30 Smokeless Tobacco: Never PHQ-2 Answer Date Recorded Patient Health Questionnaire-2 Score 0 09/01/2021 Comments Unknown Sex and Gender Information Value Date Recorded Sex Assigned at Female 09/01/2021 10:50 AM EDT Legal Sex Female 10:43 PM EDT Gender Identity Female 09/01/2021 10:50 AM EDT Sexual Orientation Straight 09/01/2021 10 :50 AM EDT Last Filed Vital Signs Vital Sign Reading Time Taken Comments Blood Pressure 133/75 09/01/2021 10:59 AM EDT Pulse 77 09/01/2021 10:59 AM EDT Temperature 36.8 C (98.2 F) 09/01/2021 10:59 AM EDT Respiratory Rate - - Oxygen Saturation 94% 09/01/2021 10: 59 AM EDT Inhaled Oxygen Concentration - - Weight 76.1 kg (167 lb 12.3 oz) 022 10:59 AM EDT Height 160 cm (5' 3 ) 09/01/2021 10:59 AM EDT Body Mass Index 29.72 09/01/2021 10:59 AM EDT Plan of Treatment Health Maintenance Due Date Last Done Comments [facility]-Depression Screening 1970 [facility]-/Child/Adol SDOH Screenings 1970 [facility]- SDOH Screenings 1986 [facility]-Adult SDOH Screenings 1986 [facility]-Pap Smear 1989 [facility]-Cervical Cancer Screening 1998 [facility]-HPV/Cotest 1998 CT Colonography 2013 Colonoscopy 2013 FIT-DNA 2013 FIT 2013 FOBT 2013 Sigmoidoscopy 2013 [facility]-Colorectal Cancer Screening 2013 [facility]-Pneumococcal Vaccine: 50 + Years (1 of 1 - PCV) 2018 [facility]-Zoster Vaccines (1 of 2) 2018 [facility]-DTaP,Tdap,and Td Vaccine s (2 - Td or Tdap) 01/14/2023 01/14/2013 [id number] Vaccine (3 - season) 2024 02/26/2021, 10/22/2020 [facility]-Influenza Vaccine (#1) 12/15/202401/14, 01/14/2013 [facility]-Hepatitis B Vaccines Completed 014, 09/15/2013, 01/14/2013 HPV Vaccines Aged Out No longer eligi ble based on patient's age to complete this topic [facility]-HIB Vaccines Aged Out No longer e ligible based on patient's age to complete this topic [facility]-Hepatitis A Vaccines Aged Out No longer eligible based on patient's age to complete this topic [facility]-IPV Vaccines Aged Out No longer e ligible based on patient's age to complete this topic [facility]-Rotavirus Vaccines Aged Out No lo nger eligible based on patient's age to complete this topic Insurance AETNA Care Teams Insurance Sales Representative Relationship Specialty Start Date End Date Denise Goldberg APRN [address] [place] [id number] PCP - General 09/01/21
--- OUTSIDE RECORDS SUMMARY | 2025-01-20 01:22 | XMS_ITS ---
Care Plan - [facility], [facility] Created on: January 20, 2025 Marilyn Yoon : 1970 Sex: Female Author Organization [facility] Address [address] [place] [address] Phone Care Team Providers Care Ring Stamper Name Role Phone Darvin HAMMOND, Madi Jimenez Unavailable [phone] Jared HAMMODN, Clayton Bailey Primary Care Provider [phone]
--- OUTSIDE RECORDS SUMMARY | 2025-01-20 01:22 | XMS_ITS | Encounter Summary ---
Author Organization [facility] Address [address] [place] [address] Care Team Providers Care Weight Training Instructor Name Role Phone Denise Goldberg SIGNAL OPERATOR Primary Care Provider [phone] Encounter Details Date Type Department Care Team (Late st Contact Info) Description 05/25/2021 Community [facility] [address] [place] [address] Denise Goldberg APRN [address] [place] [address] Abnormal laboratory test (Primary Dx); Left hip pain Social History Tobacco Use Types Packs/Day Years Used Date Smoking Tobacco: Never Assessed Comments Unknown Sex and Gender Information Value Date Recorded Sex Assigned at Female 09/01/2021 10:50 AM EDT Legal Sex Female 10:43 PM EDT Gender Identity Female 09/01/2021 10:50 AM EDT Sexual Orientation Straight 09/01/2021 10 :50 AM EDT documented as of this encounter Plan of Treatment Not on file documented as of this encounter Visit Diagnoses Diagnosis Abnormal laboratory test- Primary Other abnormal clinical finding Left hip pain Pain in joint, pelvic region and thigh documented in this encounter Care Teams Weight Training Instructor Relationship Specialty Start Date End Date Denise Goldberg APRN [address] [place] [address] PCP - General 09/01/21 documented as of this encounter
--- OUTSIDE RECORDS SUMMARY | 2025-01-20 01:22 | XMS_ITS | Clinical Summary ---
Author Organization [facility] Address [address] [place] [address] Phone Care Team Providers Care Tourist Information Officer Name Role Phone Lenin Brandt MD Unavailable [phone] Allergies Active Allergy Reactions Criticality Noted Date Comments Codeine 07/06/2011 Tramadol Hives,Itching Medium 01/14/2013 Medications atorvastatin (LIPITOR) 20 mg Oral TabletIndications: Mixed hyperlipidemia Take 1 Tab by mouth nightly. at bedtime 30 Tab 3 02/03/20 17 Active Additional Information Patient not taking.Reason: Therapy Completed, Reported on 11/14/2024 ergocalciferol (VITAMIN D) 50,000 unit Oral Capsule Take 50,000 Units by mouth once a week. Active predniSONE (DELTASONE) 10 mg Oral TabletIndications: Right anterior shoulder pain Take 4 tabs a day for 2 days, then 3 tabs a day for 2 days, then 2 tabs a day for 2 days, then one tab a day for four days 22 Tablet 10/29/19 25 Active Additional Information Patient not taking.Reason: Therapy Completed, Reported on 11/14/2024 progesterone (PROMETRIUM) 200 mg Oral Capsule 10/29/19 23 Active PROTONIX 40 mg Oral Tablet, Delayed Release (E.C.) 10/29/19 22 Active UBRELVY 100 mg Oral Tablet 11/08/19 25 Active TOPAMAX 25 mg Oral Tablet 11/17/19 21 Active promethazine (PHENERGAN) 25 mg Oral Tablet Take 1 Tablet by mouth every 6 hours as needed for Nausea for up to 20 doses. 20 Tablet 11/26/19 Active Additional Information Patient not taking.Reason: Therapy Completed, Reported on 12/03/2024 oxyCODONE (ROXICODONE) 5 mg Oral Tablet Take 1 Tablet by mouth every 4 hours as needed for Major Surgery/Trauma (G89.18) for up to 28 doses. 28 Tablet 11/26/19 Active Additional Information Patient not taking.Reason: Therapy Completed, Reported on 12/03/2024 docusate sodium (COLACE) 100 mg Oral Capsule Take one capsule three times a day while on pain meds 90 Capsule 11/26/19 Active Additional Information Patient not taking.Reason: Therapy Completed, Reported on 12/03/2024 meloxicam (MOBIC) 15 mg Oral Tablet Take 1 Tablet by mouth daily. 30 Tablet 2 01/15/20 Active Active Problems Problem Noted Date Diagnosed Date Tear of right rotator cuff 11/12/2024 Biceps tendinitis of right upper extremity 11/12 Mixed hyperlipidemia 01/04/2017 GERD (gastroesophageal reflux disease) 4 COPD (chronic obstructive pulmonary disease) 04/2012 Single kidney 01/14/2013 Overview (01/14/2013): Congenital. Recurrent UTI 01/14/2013 Cervical radiculopathy 01/14/2013 Anxiety 01/14/2013 Resolved Problems Problem Noted Date Diagnosed Date Resolved Date Acquired hypothyroidism 01/14/201301/15 Pure hypercholesterolemia 01/14/2013 Encounters Date Type Department Care Team Description 01/14/2025 9:00 AM EDT Office Visit [facility] [address] [address] Addy Gardiner MD S/P arthroscopy of shoulder (Primary Dx) 12/03/2024 10:30 AM EDT Office Visit [facility] [address] [address] Addy Gardiner MD S/P arthroscopy of shoulder (Primary Dx) 12/01/2024 [facility] [address] [address] Trish Grace, ATC Tear of right rotator cuff, unspecified tear extent, unspecified whether traumatic (Primary Dx) 12/01/2024 [place] [address] Addy Gardiner MD Orders 11/27/2024 [place] [address] Addy Gardiner MD Post-op; Medication Question 11/26/2024 Telephone [facility] [address] [facility] [place] [address] Tiffanie Amezcua APRN Post-op Call 11/25/2024 8:15 AM EDT - 11/25/2024 9:05 AM EDT Surgery [facility] [address] [place] [address] Addy Gardiner MD SHOULDER ARTHROSCOPY ROTATOR CUFF REPAIR/SUBACROMIAL DECOMPRESSION/MUMFO RD/BICEP TENODESIS 11/25/2024 8:15 AM EDT - 11/25/2024 11:59 PM EDT Hospital Encounter [facility] [address] [place] [address] Addy Gardiner MD Discharge Disposition: Home or Self Care 11/25/2024 7:57 AM EDT Anesthesia Event [facility] [address] [place] [address] Deb Mena CRNA Corriveau, Matthew M, MD 11/21/2024 Telephone [facility] [address] [address] Addy Gardiner MD Surgery 11/14/2024 Travel 11/12/2024 8:00 AM EDT [facility] [address] [place] [address] Addy Gardiner MD Tear of right rotator cuff, unspecified tear extent, unspecified whether traumatic (Primary Dx); Biceps tendinitis of right upper extremity 11/11/2024 11:30 AM EDT Ancillary Procedure [facility] [address] [place] [address] Tiffanie Amezcua APRN Right anterior shoulder pain; Internal derangement of right shoulder 10/28/2024 3:15 PM EDT Ancillary Procedure [facility] [address] [facility] [address] [place] [address] Tiffanie Amezcua APRN 10/28/2024 3:00 PM EDT Office Visit [facility] [address] [address] Tiffanie Amezcua APRN Internal derangement of right shoulder (Primary Dx); Right anterior shoulder pain from Last 3 Months Immunizations Immunization Administration Dates Next Due Hepatitis B, Adult 12/29/2013,09/15/2013 Hepatitis B, Unspecified Formulation 01/14/2013 Influenza Vaccine Quadrivalent 01/14/2014 Influenza Vaccine, Unspecified Formulation 01/14 PPD Test 01/14/2014,01/30/2013,01/23/2013 Tdap 01/14/2013 Surgical History Surgery Date Site/Laterality Comments HYSTERECTOMY endometriosis, still has ovaries NECK SURGERY KNEE ARTHROSCOPY 12/03/2017 Knee/Left LEFT KNEE ARTHROSCOPY, PARTIAL MEDIAL MENISCECTOMY, ANTERIOR CRUCIATE LIGAMENT RECONSTRUCTION ; Surgeon: Addy Gardiner MD; Location: [facility] MAIN OR; Service: Orthopedics Medical devices from this surgery are in the Medical Devices section. SHOULDER ARTHROSCOPY 11/25/2024 Shoulder/Right RIGHT SHOULDER ARTHROSCOPY ROTATOR CUFF REPAIR, SUBACROMIAL DECOMPRESSION, BICEP TENODESIS; Surgeon: Addy Gardiner MD; Location: [facility]; Service: Orthopedics Medical devices from this surgery are in the Medical Devices section. 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 Degeneration, intervertebral disc, cervical Thyroid disease hypoactive at on e point, not currently a problem Motion sickness PONV (postoperative nausea and vomiting) Family History Medical History Relation Name Comments Heart Attack Father Heart Disease Father IA and stent Hypertension Father Diabetes Maternal Grandfather COPD Maternal Grandmother Heart Attack Maternal Uncle Heart Disease Maternal Uncle several sten ts Breast Cancer Paternal Grandmother Cancer Paternal Grandmother female cancer Stroke Paternal Grandmother Relation Name Status Comments Father Alive Maternal Grandfather Maternal Grandmother Maternal Uncle Alive Mother Alive Paternal Grandmother Social History Tobacco Use Types Packs/Day Years [...] on file Sexual Orientation Not on file Last Filed Vital Signs Vital Sign Reading [...] Mass Index 29.44 11/25/2024 6:46 AM EDT Plan of Treatment Upcoming Encounters Date Type Department Care Team (Late st Contact Info) Description 02/25/2025 9:15 AM EST Office Visit [facility] [address] [place] [address] Addy Gardiner MD [address] [place] [address] Health Maintenance Due Date Last Done Comments Pneumococcal Vaccine 50+ (1 of 2 - PCV) 12/15/1987 Cervical Cancer Screening 1989 Pap Smear 1989 HPV/Pap Cotest 1998 Breast Cancer Screening 2008 Cologuard 2013 Colon Cancer Screening 2013 Colonoscopy 2013 FIT 2013 Sigmoidoscopy 2013 Virtual Colonography 2013 Annual Wellness Exam 12/29/2017 12/29/2016 Zoster (1 of 2) 2018 DTaP/TDaP/Td (2 - Td or Tdap) 01/14/2023 01/14/2013 COVID-19 Vaccine ( season) 2024 Influenza Vaccine (#1) 2024 , 12/29/2016 (Declined), 06/04/2015 (Declined), Additional history exists Hepatitis B Vaccine Completed 12/29/2013, 09/15/2013, 01/14/2013 Meningococcal B Vaccine Aged Out No l onger eligible based on patient's age to complete this topic Goals Goal Patient Goal Type Associated Problems Recent Progress Patient-Stated? Author Maintain a healthy diet, exercise regularly and maintain an ideal body weight General Martina Campbell CMA Stay Tobacco Free Lifestyle No Martina Hernandez CMA Medical Devices Implanted Type Area Laborer Concrete Plant Device Identifier Shelf Expiration Date Model / Serial / Lot Endobutton Ultra Cl 20mm - [id number] Implanted:Qty: 1 on 12/03/2017 by Addy Gardiner MD at [facility] Left: Knee [employer]:ENDO 06/13/2018 [id number] / / [id number] Device Fixation Exoshape Angle L30 Mm Od7 Mm Deployment Cart - [id number] Implanted:Qty: 1 on 12/03/2017 by Addy Gardiner MD at [facility] Left: Knee CONMED:LINVATEC 11/13/2020 [id number] 73 [id number] / / [id number] Healix Advance 5.5mm W/ Orthocord - [id number] Implanted:Qty: 1 on 11/25/2024 by [facility]y [facility]iner MD at [facility] Right: Shoulder MITEK 08/14/2027 [id number] / / [id number] Procedures Procedure Name Priority Date/Time Associated Diagnosis Comments INTRAOP AIRWAY PLACEMENT Routine 11/25/2024 8:04 AM EDT VA SURGICAL ARTHROSCOPY SHOULDER BICEPS TENODESIS 11/25/2024 7:57 AM EDT Tear of right rotator cuff, unspecified tear extent, unspecified whether traumatic Biceps tendinitis of right upper extremity Special Needs SCALENE BLOCK bv VA SURGICAL ARTHROSCOPY SHOULDER W/ROTATOR CUFF RPR 11/25/2024 7:57 AM EDT Tear of right rotator cuff, unspecified tear extent, unspecified whether traumatic Biceps tendinitis of right upper extremity Special Needs SCALENE BLOCK bv VA SURGICAL ARTHROSCOPY KLARISSA W/CORACOACRM LIGM RLS 11/25/2024 7:57 AM EDT Tear of right rotator cuff, unspecified tear extent, unspecified whether traumatic Biceps tendinitis of right upper extremity Special Needs SCALENE BLOCK bv PERIPHERAL BLOCK Routine 11/25/2024 7:51 AM EDT MRI SHOULDER RIGHT WO CONTRAST Routine 11/11/2024 11:24 AM EDT Right anterior shoulder pain Internal derangement of right shoulder XR SHOULDER RIGHT 4 VIEWS Routine 10/28/2024 3:01 PM EDT Right anterior shoulder pain from Last 3 Months Results * INTRAOP AIRWAY PLACEMENT (11/25/2024 8:04 AM EDT) Narrative [facility] - 11/25/2024 8:04 AM EDT Deb [...] attempts: 1 Attempt 1 by: BM Title: BANQUET PREP COOK us Deb Mena BANQUET PREP COOK [facility] ANESTHESIA Final Resul t [facility] [address] [place] [id number] * Peripheral Block by Anesthesia (11/25/2024 7:51 AM EDT) Narrative [facility] - 11/25/2024 7:51 AM EDT Jonathan [...] of the block is attached/scanned to the [facility] chart. Deb Mena BANQUET PREP COOK ANESTHESIA ORDERABLES Final Result Performing Organization Address [facility] de Phone Number [facility] [address] [place] [phone] * MRI SHOULDER RIGHT WO CONTRAST (11/11/2024 11:24 AM EDT) Narrative [facility] - 11/11/2024 11:25 AM EDT Please see the scanned MRI report associated with this order on the Imaging tab of the patient's chart. Tiffanie Amezcua APRN Andrew MRI ORDERABLES Final R esult Performing Organization Address [facility] de Phone Number [facility] * XR SHOULDER RIGHT 4 VIEWS (10/28/2024 3:01 PM EDT) Narrative [facility] - 10/28/2024 3:01 PM EDT Please see physician's note from office encounter for x-ray imaging result Tiffanie Amezcua APRN IMAndrew DIAGNOSTIC IMAGING ORD ERABLES Final Result Performing Organization Address [facility] de Phone Number [facility] from Last 3 Months Insurance AETNA POS AETNA POS [employer] WORKERS' COMP AETNA POS AETNA POS Care Teams Tourist Information Officer Relationship Specialty Start Date End Date Lenin Brandt MD Physician Internal Medicine-Gastroenterology 06/30/13
--- OUTSIDE RECORDS SUMMARY | 2025-01-20 01:22 | XMS_ITS | Encounter Summary ---
Author Organization [facility] Address [address] [place] [address] Care Team Providers Care Popcorn Vendor Name Role Phone Lenin Brandt MD Unavailable [phone] Reason for Visit * Reason Onset Date Comments Post-op 11/27/2024 Medication Question 11/27/2024 Encounter Details Date Type Department Care Team (Late st Contact Info) Description 11/27/2024 Telephone [facility] [address] [place] [address] Addy Gardiner MD [address] [facility] [place] [address] Post-op; Medication Question Social History Tobacco Use Types Packs/Day Years [...] encounter Miscellaneous Notes * Telephone Encounter - Trish Grace ATC - 11/27/2024 11:25 AM EDT Juan and Marilyn has a lot of trouble taking any kind of pain meds and was wondering if she can alternate using Tylenol and Ibuprofen. I told her yes she can try that and if it is not working she cantake the pain med. Told her to call us if she has any other questions. * Telephone Encounter - Kathrin Freed, Clerical Staff - 11/27/2024 10:10 AM EDTSummary: Post Op Medication Question Patient is requesting a call back to discuss winging off of the pain medication and alternating tylenol & ibuprofen documented in this encounter Plan of Treatment Upcoming Encounters Date Type Department Care Team (Late st Contact Info) Description 02/25/2025 9:15 AM EST Office Visit [facility] [address] [address] Addy Gardiner MD [address] [place] [address] documented as of this encounter Goals Goal Patient Goal Type Associated Problems Recent Progress Patient-Stated? Author Maintain a healthy diet, exercise regularly and maintain an ideal body weight General No Martina Hernandez CMA Stay Tobacco Free Lifestyle Martina Campbell CMA documented as of this encounter Visit Diagnoses Not on filedocumented in this encounter Care Teams Popcorn Vendor Relationship Specialty Start Date End Date Lenin Brandt MD Physician Internal Medicine-Gastroenterology 06/30/13 documented as of this encounter
--- OUTSIDE RECORDS SUMMARY | 2025-01-20 01:22 | XMS_ITS | Encounter Summary ---
Author Organization [facility] Address [address] [place] [address] Care Team Providers Care Bowling Alley Floors Installer Name Role Phone Lenin Brandt MD Unavailable [phone] Reason for Visit * Reason Onset Date Comments Orders 12/01/2024 Encounter Details Date Type Department Care Team (Late st Contact Info) Description 12/01/2024 Telephone [facility] [address] [place] [address] Addy Gardiner MD [address] [facility] [address] [place] [address] Orders Social History Tobacco Use Types Packs/Day Years [...] Telephone Encounter - Trish Grace ATC - 12/01/2024 11:33 AM EDT Called Giovanna and asked why they need a script for OT. The order is for PT post op RC repair and asked if a OT is going to work on her. She said yes, the OT does shoulders, elbows and hand. I will send the order. * Telephone Encounter - Giovanna Perez, Clerical Staff - 12/01/2024 11:17 AM EDTSummary: PHONE CALL PO SX 11/25/24 GIOVANNA CALLING FROM [facility] IN PHYSICAL THERAPY DEPT REQUESTING ORDER FOR PHYSICAL THERAPY TO BE CHANGED TO OCCUPATIONAL THERAPY FX#[phone] PLEASE ADVISE documented in this encounter Plan of Treatment Upcoming Encounters Date Type Department Care Team (Late st Contact Info) Description 02/25/2025 9:15 AM EST Office Visit [facility] [address] [address] Addy Gardiner MD [address] [place] [address] documented as of this encounter Goals Goal Patient Goal Type Associated Problems Recent Progress Patient-Stated? Author Maintain a healthy diet, exercise regularly and maintain an ideal body weight General No Martina Hernandez CMA Stay Tobacco Free Lifestyle Martina Campbell CMA documented as of this encounter Visit Diagnoses Not on filedocumented in this encounter Care Teams Bowling Alley Floors Installer Relationship Specialty Start Date End Date Lenin Brandt MD Physician Internal Medicine-Gastroenterology 06/30/13 documented as of this encounter
== END 2025-01-19 23:59 | disposition home or self-care (01) ==
LOC: LAB.DROPOF 01-20 01:19
PROVIDERS: PCP Nurse Practitioner; Visit Provider Nurse Practitioner
DX: J06.9 Acute upper respiratory infection, unspecified (principal); J02.9 Acute pharyngitis, unspecified; R35.0 Frequency of micturition

== ENCOUNTER 2025-02-05 17:00 | Outpatient (RCR) | payer OTHER, SELFPAY ==
[2025-01-19 20:13] LABS: Coronavirus 19, PCR Not Detected (NotDetected); Influenza A, PCR Not Detected (NotDetected); Influenza B, PCR Not Detected (NotDetected)
== END 2025-02-05 23:59 | disposition home or self-care (01) ==
LOC: OT 17:00
PROVIDERS: Nurse Practitioner; PCP Nurse Practitioner Family; Visit Provider Orthopaedic Surgery
DX: M75.21 Bicipital tendinitis, right shoulder (principal); J06.9 Acute upper respiratory infection, unspecified; R35.0 Frequency of micturition
CPT/HCPCS: 87086; 87088; 87186; 87631; 97035; 97110; 97140

== ENCOUNTER 2025-03-02 15:30 | Emergency (ER) | payer OTHER, SELFPAY ==
--- NOTE | 2025-03-02 16:17 | ED_ITS ---
<Statement entered by Kellee Lowry DO - 03/02/25 21:09> I was consulted by the ROSAS, and we discussed the complexity of problems being addressed. I approve the treatment and management plan for this patient's care in the emergency department, thus performing a substantial portion of the medical decision making. Kellee Lowry DO Discharge Plan Disposition Patient Disposition: Home, Self-Care Condition: Good Prescriptions Prescriptions: No Action meloxicam 15 mg tablet 15 mg PO DAILY progesterone micronized 200 mg capsule 200 mg PO DAILY atorvastatin 20 mg tablet 20 mg PO DAILY Qty: 30 2RF clobetasol 0.05 % solution 1 applic topical DAILY Qty: 50 3RF topiramate 25 mg tablet See Rx Instructions .ROUTE .COMPLEX Qty: 120 11RF Dose Instruction: Take 2 tablets by mouth twice daily Rx Instructions: Take 2 tablets by mouth twice daily Ubrelvy 100 mg tablet See Rx Instructions .ROUTE .COMPLEX Qty: 30 5RF Dose Instruction: TAKE 1 TABLET BY MOUTH ONCE DAILY NEEDED FOR MIGRAINE HEADACHE Rx Instructions: TAKE 1 TABLET BY MOUTH ONCE DAILY NEEDED FOR MIGRAINE HEADACHE pantoprazole 40 mg tablet,delayed release (DR/EC) 40 mg PO DAILY Rx Instructions: Take 1 tablet by mouth once daily albuterol sulfate 90 mcg/actuation HFA aerosol inhaler 1 mcg inhalation DAILY Referrals Follow up/Referrals: Radha Melgar APRN [Primary Care Provider, Family Practice] - See instructions Activity Restrictions/Add. Instructions Additional Instructions/Restrictions: Please follow-up with your family doctor in the upcoming days/weeks. Please take your blood pressure log of your blood pressure over the next 10 days to 2 weeks, please return to the emerged from with any worsening signs or symptoms please take all your medication at home as prescribed. Clinical Impressions Clinical Impression: Migraine, Elevated blood pressure reading Instructions Patient Instructions: DI for Headache, DI for High Blood Pressure Print Language Print Language: Macanese Discharge ED Provider: Kellee Lowry General Adult HPI General Chief complaint: Headache Stated complaint: High BP @ [facility], having headache Time Seen by Provider: 03/02/25 16:15 Mode of Arrival: Ambulatory Source of Information: Patient and Medical Record Limitations: No Limitations History of Present Illness HPI narrative: 54-year-old female presents to the emergency department at the request of her PCPs office for concern of hypertension with a recorded blood pressure in the office of 180 , systolic no history of hypertension and headache, patient that she has had waxing waning headache for the last 2 days does have a history of migrainous type headache however this 1 has been quite different it is located in her bilateral temples , she denies any fever chills cough congestion sore throat chest pain shortness of breath, no photophobia no phonophobia no lightheadedness no dizziness, no nausea no vomiting no constipation no diarrhea no abdominal pain, no urinary type symptomatology, patient is a current everyday smoker denies any alcohol or drug use, other past medical history is excessive of migrainous type headaches, hyperlipidemia, GERD. Initial triage vitals noted for blood pressure 165 systolic otherwise unremarkable Please note that above description of symptoms, in this electronic medical record under categorization of recalled from ER triage doctor by RN are reflective of an initial nursing assessment, however, is not reflective of my full history and physical exam that was personally taken and clarified. Consequentially, this preceding description of symptoms, which may include the patient's categorized chief complaint in the EMR, do not reflect my personal clinical impression, and the ultimate description of history of present illness and patient stated complaints should be deferred to this section of the note. Unless stated otherwise or congruent with this section of the note, additional signs, symptoms, or incongruence should be interpreted as inaccurate with my clinical impression. Onset (ago): day(s) Related Data Home Medications ?Medication ?Instructions ?Recorded ?Confirmed albuterol sulfate 90 mcg/actuation 1 mcg inhalation DA LEX 06/10/24 03/02/25 aerosol inhaler pantoprazole 40 mg tablet,delayed 40 mg PO DAILY 06/1003/02/25 release meloxicam 15 mg tablet 15 mg PO DAILY 01/19/2502/14 progesterone micronized 200 mg 200 mg PO DAILY 5 03/02/25 capsule Previous Rx's ?Medication ?Instructions ?Recorded atorvastatin 20 mg tablet 20 mg PO DAILY #30 tabs 08/14 clobetasol 0.05 % scalp solution 1 applic topical SUSAN Y #50 mL 01/02/24 topiramate 25 mg tablet See Rx Instructions .Route 0 08/08/24 .COMPLEX #120 tabs ubrogepant 100 mg tablet (Ubrelvy) See Rx Instructions .Route 11/07/24 .COMPLEX #30 tabs Allergies Allergy/AdvReac Type Severity Reaction Status Date / Time codeine AdvReac Intermediate vomiting Verified 03/02/25 14:38 [facility] Disclaimer: The information contained in this section may have been updated after the patient was seen, as this information can be updated by other users. Medical History Viral upper respiratory infection Left knee sprain Chest pain Encounter for laboratory testing for COVID-19 virus Bronchitis Acute bacterial bronchitis Influenza A virus present Chronic diarrhea Cystitis Dysuria Migraine HLD (hyperlipidemia) Surgical History History of hysterectomy H/O arthroscopy of left knee Family History Other Diabetes Heart attack Hypertension Social History Smoking Status: Current every day smoker tobacco type: cigarettes packs per day: 1 alcohol intake: never substance use type: denies use current occupational status: employed Travel in the last 8 weeks?: None household members: spouse housing: house 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 Have you lived/traveled outside US in past 30 days?: No Contact w/someone who lives/traveled outside US past 30 days?: No Exposure to someone with infectious disease in past 14 days?: No Do you have a fever (greater than 100.4 F or 38 C)?: No Have you tested positive for COVID-19?: No Exposed to someone with COVID-19 in past 14 days?: No Do you have a sore throat?: No Do you have a cough?: No Do you have any weakness?: No Do you have any diarrhea?: No Are you experiencing any unusual bleeding?: No Do you have any muscle aches/pain?: No Do you have any abdominal pain?: No Are you experiencing loss of taste or smell?: No Other Medical History Have you received the Flu Vaccine for this season: Yes Have you received the Pneumonia Vaccine: Yes ROS Obtained: Yes All systems reviewed & no additional complaints except as documented Physical Exam General General appearance: alert and in no apparent distress Head Head exam: atraumatic and normocephalic Eye Eye exam: Present PERRL and EOMI ENT ENT exam: Present mucous membranes moist Neck Neck exam: Present normal inspection Chest Chest inspection: Present normal inspection and symmetric chest wall rise Respiratory Respiratory exam: Present normal lung sounds bilaterally; Absent respiratory distress Cardiovascular Cardiovascular exam: Present regular rate and normal rhythm Abdominal Exam Abdominal exam: Present soft; Absent tenderness Extremities Exam Extremities exam: Present normal inspection Neurological Exam Neurological exam: Present alert, oriented X3 and other (5 out of 5 strength in the bilateral lower and upper extremities no gross neurological deficit no sensation deficit) Psychiatric Psychiatric exam: Present normal affect Skin Skin exam: Present warm and dry Medical Decision Making Medical Records Medical records reviewed: Yes I reviewed the patient's medical records. Screening: Per USPSTF and CDC recommendations, given the prevalence of disease in our region, it is our hospital?s policy to screen for HIV and viral Hepatitis for all patients aged 18 and over and those with ongoing risk factors. John Inquiry Pt receiving controlled substance: No John was queried for this patient: No Vital Signs: 03/02/25 16:29 03/02/25 16:29 Temperature 98.1 F 98.1 F Temperature Source Oral Oral Pulse Rate 79 Pulse Rate [Right] 79 Respiratory Rate 16 16 Blood Pressure 165/87 H Blood Pressure [Right Arm] 165/87 H Blood Pressure Mean [Right Arm] 113 Blood Pressure Source Automatic Cuff Blood Pressure Source [Right Arm] Automatic Cuff Blood Pressure Position Supine Blood Pressure Position [Right Arm] Supine 02 Sat by Pulse Oximetry 97 97 Oxygen Delivery Method Room Air Room Air Lab Data Lab results reviewed: Yes I reviewed the patient's lab results. Orders (Tests/Meds): ED MEDICATIONS Discontinued Medications Generic Name Dose Route Start Last Admin Trade Name Domenicq PRN Reason Stop Dose Admin Dexamethasone Sodium Phosphate 10 mg 03/02/25 16:30 Dexamethasone 4mg/Ml 1ml Vial IV 03/02/25 16:31 ONCE ONE Diphenhydramine HCl 25 mg 03/02/25 16:32 Diphenhydramine 50mg/Ml Vial IV 03/02/25 16:33 ONCE ONE Ketorolac Tromethamine 15 mg 03/02/25 16:30 Ketorolac 15mg/Ml Vial IV 03/02/25 16:31 ONCE ONE Prochlorperazine Edisylate 10 mg 03/02/25 16:30 Prochlorperazine 10mg/2ml Vial IV 03/02/25 16:31 ONCE ONE ORDERS Category Date Time Status Complete Blood Count Auto Diff Stat Lab 03/02/25 16:26 Ordered Comprehensive Metabolic Panel Stat Lab 03/02/25 16:26 Ordered HIV Combo Stat Lab 03/02/25 16:37 Ordered Hepatitis C Ab Qual. W/ RFX Stat Lab 03/02/25 16:37 Ordered Magnesium Stat Lab 03/02/25 16:26 Ordered NT Pro Brain Natriuretic Pep. Stat Lab 03/02/25 16:26 Ordered Troponin I Q3H Lab 03/02/25 19:30 Ordered Troponin I Q3H Lab 03/02/25 22:30 Ordered Troponin I Stat Lab 03/02/25 16:26 Ordered Medical Decision Narrative: 54-year-old female presents to the emergency department with a headache for the last 2 days, concern for hypertension with elevated blood pressure reading at the request of her PCPs office differential diagnose include but not limited to, hypertensive urgency, hypertensive emergency, migraine with aura, migraine without aura, tension headache, cluster headache, cardiac arrhythmia, [place] disturbance among others I discussed this patient case with the attending physician Dr. Contreras as well as Dr. Lowry at shift change. Obtain basic laboratory studies magnesium level proBNP troponin, EKG, will give 10 mg IV dexamethasone 25 mg IV Benadryl, 50 mg IV Toradol, 10 mg IV Compazine. Of note, was notified by nursing staff at approximately 5:30 PM that the patient states that she is currently symptom-free, headache is improved, blood pressure is now around 156 systolic, she has no other acute signs or symptoms, shared decision making was utilized I offered laboratory studies and medications for the patient, patient elected not to pursue any further workup, once again shared decision making was utilized and I think this is appropriate as patient is currently asymptomatic, could have some degree of asymptomatic hypertension. I see no evidence of any endorgan dysfunction at this time. Headache has been wax and wane for the last 2 days, no red flag signs or symptoms, no focal neurological deficit patient was given strict ED return precautions. Patient and family voiced understanding and agreed with the current treatment plan/discharge plan. Will follow-up with PCP in the upcoming days/weeks Critical Care Critical Care Time Critical Care Time: No
[2025-03-02 16:29] VITALS: BP 165/87; PULSE 79; RESP 16; TEMP 36.7; O2SAT 97; BMI 29.7
--- NOTE | 2025-03-02 16:40 | ECG_ITS ---
APPROVED REPORT Exam: Resting ECG HR:63 bpm ECG Measurements Heart Rate 63 AXES NE 183 P 72 QRSd 93 QRS -7 QT 396 T 21 QTc 404 Conclusion Sinus arrhythmia, atrial paced rhythm no acute ST or T wave changes concerning for ischemia Electronically signed by : Kellee Lowry, 03/03/2025 00:01:09
[2025-03-02 17:37] VITALS: BP 138/72; PULSE 73; RESP 20; TEMP 36.6
== END 2025-03-02 17:46 | disposition home or self-care (01) ==
PROVIDERS: Emergency Provider Student in an Organized Health Care Education/Training Program; PCP Nurse Practitioner Family
DX: G43.909 Migraine, unspecified, not intractable, without status migrainosus (principal)
CPT/HCPCS: 93005; 99284

== ENCOUNTER 2025-03-09 16:00 | Outpatient (RCR) | payer OTHER, SELFPAY | END 2025-03-09 23:59 | disposition home or self-care (01) | LOC: OT 16:00 | PROVIDERS: PCP Nurse Practitioner Family; Visit Provider Orthopaedic Surgery | DX: M75.101 Unspecified rotator cuff tear or rupture of right shoulder, not specified as traumatic (principal); M75.21 Bicipital tendinitis, right shoulder | CPT/HCPCS: 97110; 97140 ==

== ENCOUNTER 2025-03-11 14:07 | Outpatient (CLI) | payer OTHER, SELFPAY ==
--- OUTSIDE RECORDS SUMMARY | 2025-01-14 08:00 | XMS_ITS | Encounter Summary ---
Author Organization [facility] Address [address] [place] [address] Care Team Providers Care Candy Attendant Name Role Phone Lenin Brandt MD Unavailable [phone] Reason for Visit * Reason Comments Follow-up Encounter Details Date Type Department Care Team (Late st Contact Info) Description 01/14/2025 9:00 AM EDT Office Visit [facility] [address] [address] Addy Gardiner MD [address] [place] [address] S/P arthroscopy of shoulder (Primary Dx) Social [...] on file documented as of this encounter Ordered Prescriptions Prescription Sig Dispense Quantity Refills Last Filled Start Date End Date meloxicam (MOBIC) 15 mg Oral Tablet Take 1 Tablet by mouth daily. 30 Tablet 2 01/14/2025 documented in this encounter Progress Notes * Addy Gardiner MD - 01/14/2025 9:00 AM EDT Images from the original note were not included. Tiffanie Amezcua APRN/ Orthopaedic Surgery/Sports Medicine [address] [place] [address] Patient Name: Marilyn Yoon [id number] Date of : 1970 Patient Primary Care Physician: No primary care provider on file. DATE OF VISIT: 01/14/2025 This patient was seen in consultation with Dr Gardiner today. I am acting as a scribe. Chief Complaint: Right shoulder recheck Procedure note: 11/25/2024 Dr. Gardiner POSTOPERATIVE DIAGNOSES: 1. Right shoulder rotator cuff tear. 2. Subacromial impingement. 3. Biceps tendinopathy. 4. Labral tearing. OPERATION PERFORMED: 1. Right shoulder arthroscopic rotator cuff repair. 2. Right shoulder arthroscopic subacromial decompression with acromioplasty. 3. Right shoulder arthroscopic biceps tenodesis. Medical History: Past Medical History[1] Review of Systems: Pertinent items are noted in HPI. Review of systems reviewed from patient history form is availablein the patient's chart. BMI: 29.4 per last recorded measurement. History: Marilyn Yoon is a 54 y.o. female comes in today for review of right shoulder. She has been attending physical therapy she feels going well. She notes a little bit of tightness with external rotation elevation of the arm above shoulder level. All in all she feels the pain is improved significantly she has had no numbness or tingling today for reevaluation Physical Exam: The patient is alert and oriented adequately groomed in no acute distress. Skin incisions are well-healed. Her range of motion is actually very good today she is a little tight with external and internal rotation. The patient is weak in any elevated positions. Better low shoulder Good range of motion the elbow and wrist. They are neurovascularly and sensory intact about the arm distally. There is no pain or tenderness to the cervical spine and they have full range of motion to the neck. Diagnosis: Recheck right shoulder status post rotator cuff repair subacromial decompression and biceps tenodesis of 11/25/2024 Plan: She is feeling and doing well at this point. She is a tiny bit tight but really where we would expect her to be. Today we will send her in an oral course of meloxicam instead of the ibuprofen she hasbeen taking intermittently. She will continue icing with regularity we will see her back in 6 weeksfor reevaluation or sooner if she has any additional problems. The patient understands the critical importance of rehabilitation and they understand that if they do not work hard in physical therapy or are non- compliant that they are compromising the outcome of their healing. Will see her back in 6 weeks or sooner if she has additional problems. We have discussed the nature of the diagnosis and treatment options with the patient today. Ample time was given for discussion and questions about different treatment strategies and the patient is in full agreement with our treatment plan. All decisions were made with the patient's full understanding. Athlete/Work Note The patients current sports/work status is: Employer: [employer] Here are a few indicators that it???s safe to return to playing sports after your injury and recovery: Absence of pain Absence of swelling and inflammation Samaritan of full range of motion Regained strength Weight-bearing on injured area without an effect Even if the pain has subsided, reintroduce activities slowly. Take extra care with the injured areafor several months. Ultimately, the patient or the family assume risk of return to play/work from the injury. The patient is advise to call with any issues or concerns in the future. Tiffanie Amezcua APRN Parts of this note may have been created by a chart review, combined by taking my own patient history. The patient was physically seen and examined by myself, including a personal review of images, tests, and formation of the impression and plan. In addition, this note may been dictated utilizing voice recognition software. Unfortunately this leads to occasional typographical errors. I apologize in advance if the situation occurs. If questions occur please do not hesitate to call our office. The patient was advised to call with any issues or concerns in the future. 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 Author Maintain a healthy diet, exercise regularly and maintain an ideal body weight General Martina Campbell CMA Stay Tobacco Free Lifestyle Martina Campbell CMA documented as of this encounter Visit Diagnoses Diagnosis S/P arthroscopy of shoulder- Primary Other postprocedural status documented in this encounter Care Teams Candy Attendant Relationship Specialty Start Date End Date Lenin Brandt MD Physician Internal Medicine-Gastroenterology 06/30/13 documented as of this encounter
--- OUTSIDE RECORDS SUMMARY | 2025-02-25 09:15 | XMS_ITS | Encounter Summary ---
Author Organization [facility] Address [address] [place] [address] Care Team Providers Care Pharmacist Per Diem Name Role Phone Lenin Brandt MD Unavailable [phone] Reason for Visit * Reason Comments Follow-up Encounter Details Date Type Department Care Team (Late st Contact Info) Description 02/25/2025 9:15 AM EST Office Visit [facility] [address] [address] Addy Gardiner MD [address] [place] [address] S/P arthroscopy of shoulder (Primary Dx) Social [...] included. Tiffanie Amezcua APRN/ Orthopaedic Surgery/Sports Medicine [address] [place] [address] Patient Name: Marilyn Yoon [id number] Date of : 1970 Patient Primary Care [...] has been attending physical therapy s at [facility] which is closer to her home. [...] asked her to ask her therapist from [facility] to shoot us a copyof her [...] The patients current sports/work status is: Employer: [employer] no use of the right arm. Here are a few indicators that it???s safe to return to playing sports after your injury and recovery: Absence of pain Absence of swelling and inflammation Mormon of full range of motion Regained strength [...] 04/22/2025 8:00 AM EST Office Visit [facility] [address] [address] Addy Gardiner MD [address] [facility] [address] [place] [address] documented as of this encounter Goals Goal Patient Goal Type Associated Problems Recent Progress Patient-Stated? Author Maintain a healthy diet, exercise regularly and maintain an ideal body weight General Martina Campbell CMA Stay Tobacco Free Lifestyle Martina Campbell CMA documented as of this encounter Visit Diagnoses Diagnosis S/P arthroscopy of shoulder- Primary Other postprocedural status documented in this encounter Care Teams Pharmacist Per Diem Relationship Specialty Start Date End Date Lenin Brandt MD Physician Internal Medicine-Gastroenterology 06/30/13 documented as of this encounter
[2025-03-11 13:11] LABS: Microscopic, Urine URINE MICROSCOPIC (MICROSCOPIC)
[2025-03-11 13:27] LABS: Hematocrit 45.8 % (37.0-47.0); Hemoglobin 14.6 g/dL (12.2-16.2); Immature Granulocytes % 0.6 %; Mean Corpuscular HGB Conc 31.9 g/dL (31.8-35.4); Mean Corpuscular Hemoglobin 32.1 pg (27.0-31.2); Mean Corpuscular Volume 100.7 fl (81-99); Nucleated Red Blood Cells % 0 %; Platelet Count 320 K/mm3 (142-424); Red Blood Count 4.55 M/mm3 (4.20-5.40); Red Cell Distribution Width-SD 47.6 fL; White Blood Count 7.1 K/mm3 (4.8-10.8)
[2025-03-11 13:32] LABS: Bilirubin,Urine Negative (Negative); Color,Urine YELLOW (Yellow); Glucose,Urine (UA) Negative (Negative); Ketones,Urine Negative (Negative); Leukocyte Esterase,Urine 1+ (Negative); PH,Urine 6.5 (5.0-8.5); Protein,Urine Negative (Negative); Specific Gravity, Urine 1.020 (1.005-1.030); Urobilinogen,Urine 0.2 EU/dl (0.2)
[2025-03-11 13:40] LABS: Bacteria,Urine 4+ /lpf
[2025-03-11 13:48] LABS: Hemoglobin A1C 5.3 % (4.0-6.0)
[2025-03-11 13:57] LABS: Alanine Aminotransferase 57 U/L (12-78); Albumin Level 5.2 g/dl (3.5-5.0); Albumin/Globulin Ratio 1.8 (1.1-1.8); Alkaline Phosphatase 89 U/L (38-126); Anion Gap 16.1 mEq/L (5-15); Aspartate Amino Transferase 40 U/L (14-36); Bilirubin,Total 0.3 mg/dl (0.2-1.3); Blood Urea Nitrogen 13 mg/dl (7-17); Calcium 10.1 mg/dl (8.4-10.2); Carbon Dioxide 21 mmol/L (22.0-30.0); Chloride 105 mmol/L (98-107); Cholesterol 321 mg/dl (140-200); Creatinine,Serum 0.80 mg/dl (0.52-1.04); Estimated Glomerular Filt Rate 74 ml/min (>60); GFR (African American) 90 ML/MIN (>60); Globulin 2.9 g/dL (1.3-3.2); Glucose 82 mg/dl (74-100); HDL Cholesterol 44 mg/dl (40-60); Iron 84 ug/dL (37-170); Potassium 4.1 mmoL/L (3.5-5.1); Sodium 138 mmol/L (136-145); Total Protein,Serum 8.1 g/dl (6.3-8.2); Triglycerides 241 mg/dl (30-150)
[2025-03-11 14:09] LABS: Total Iron Binding Capacity 355 ug/dL (265-497)
--- OUTSIDE RECORDS SUMMARY | 2025-03-11 14:10 | XMS_ITS | Clinical Summary ---
Author Organization [facility] Address [address] [place] [address] Phone Care Team Providers Care Hose Seamer Name Role Phone Lenin Brandt MD Unavailable [phone] Allergies Active Allergy Reactions Criticality Noted Date [...] Encounters Date Type Department Care Team Description 02/25/2025 9:15 AM EST Office Visit [facility] [address] [address] Addy Gardiner MD S/P arthroscopy of shoulder (Primary Dx) 01/14/2025 9:00 AM EDT Office Visit [facility] [address] [place] [address] Addy Gardiner MD S/P arthroscopy of shoulder (Primary Dx) from Last 3 Months Immunizations Immunization Administration [...] RECONSTRUCTION ; Surgeon: Addy Gardiner MD; Location: [facility]; Service: Orthopedics Medical devices from this surgery are in the Medical Devices section. SHOULDER ARTHROSCOPY 11/25/2024 Shoulder/Right RIGHT SHOULDER ARTHROSCOPY ROTATOR CUFF REPAIR, SUBACROMIAL DECOMPRESSION, BICEP TENODESIS; Surgeon: Addy Gardiner MD; Location: [facility]; Service: Orthopedics Medical devices from this surgery [...] Comments Heart Attack Father Heart Disease Father SD and stent Hypertension Father Diabetes Maternal Grandfather [...] 04/22/2025 8:00 AM EST Office Visit [facility] [address] [address] Addy Gardiner MD [address] [place] [address] Health Maintenance Due Date Last Done Comments [...] Td or Tdap) 01/14/2023 01/14/2013 COVID-19 Vaccine (1 - season) 2024 Influenza Vaccine (#1) 2024 , [...] Stay Tobacco Free Lifestyle Martina Campbell CMA Medical Devices Implanted Type Area Forging Press Operator Device Identifier Shelf Expiration Date Model / Serial / Lot Endobutton Ultra Cl 20mm - [id number] Implanted:Qty: 1 on 12/03/2017 by Addy Gardiner MD at [facility] Left: Knee [employer]:ENDO 06/13/2018 [id number] / / [id number] Device Fixation Exoshape Angle L30 Mm Od7 Mm Deployment Cart - [id number] Implanted:Qty: 1 on 12/03/2017 by Addy Gardiner MD at [facility] Left: Knee CONMED:[employer]VAT[employer] 11/13/2020 [id number] 73 [id number] / / [id number] Healix Advance 5.5mm W/ Orthocord - [id number] Implanted:Qty: 1 on 11/25/2024 by Addy Gardiner MD at [facility] Right: Shoulder MITE[employer] 08/14/2027 [id number] / / [id number] Insurance AETNA POS AETNA POS GENER[employer] WORKERS' COMP AETNA POS AETNA POS Care Teams Hose Seamer Relationship Specialty Start Date End Date Lenin Brandt MD Physician Internal Medicine-Gastroenterology 06/30/13
--- OUTSIDE RECORDS SUMMARY | 2025-03-11 14:10 | XMS_ITS | Encounter Summary ---
Author Organization [place] [address] Care Team Providers Care Surface Boss Name Role Phone Lenin Brandt MD Unavailable [phone] Wilberto Miles DO Primary Care Provider [phone] Encounter Details Date Type Department Care Team (Late st Contact Info) Description 09/11/2019 Lab [place] [address] Ildefonso Quevedo MD [address] [place] [address] Encounter for screening for other viral diseases [...] [facility] [address] [place] [address] Addy Gardiner MD [address] [place] [address] documented as of this encounter Goals Goal [...] REF LAB (09/10/2019 11:30 AM EDT) CORONAVIRUS [id number] NEGATIVE Negative 09/12/2019 5:30 PM EDT [facility] Comment: Negative results do not preclude [...] developed and performance characteristics are determined by [employer] It has not been cleared nor approved by the FDA. The laboratory is accredited through CLIA and deemed qualified to perform high-complexity testing. Such testing is used for clinical purposes and should not be regarded as investigational or for research. [facility] Pat ID: [id number]; [place] Req Num: [id number]; [place] Spec ID: [id number] us Ildefonso Quevedo MD LAB SEND OUT ORDERABLES Final Re sult [facility] [address] [phone] documented in this encounter Visit Diagnoses Diagnosis Encounter for screening for other viral diseases documented in this encounter Care Teams Surface Boss Relationship Specialty Start Date End Date Wilberto Miles DO [address] [place] [address] PCP - General Family Medicine 09/09/19 03/14/20 Lenin Brandt MD Physician Internal Medicine-Gastroenterology 06/30/13 documented as of this encounter
--- OUTSIDE RECORDS SUMMARY | 2025-03-11 14:11 | XMS_ITS | Encounter Summary ---
Author Organization [facility] Address [address] [place] [address] Care Team Providers Care Core Inserter Name Role Phone Denise Goldberg AMORTIZATION CLERK Primary Care Provider [phone] Encounter Details Date Type Department Care Team (Late st Contact Info) Description 05/25/2021 [facility] [address] [place] [address] Denise Goldberg APRN [address] [place] [address] Abnormal laboratory test (Primary Dx); [...] thigh documented in this encounter Care Teams Core Inserter Relationship Specialty Start Date End Date Denise Goldberg APRN [address] [place] [address] PCP - General 09/01/21 documented as of this encounter
--- OUTSIDE RECORDS SUMMARY | 2025-03-11 14:11 | XMS_ITS | Clinical Summary ---
Author Organization [facility] Address [address] [place] [address] Care Team Providers Care Office Mail Clerk Name Role Phone Denise Goldberg JENIFER Primary Care Provider [phone]- [phone] Allergies Active Allergy Reactions Criticality Noted Date [...] Date Last Done Comments [facility]-Depression Screening 1968 [facility]-Infant/Child/Adol SDOH Screenings 1968 [facility]- SDOH Screenings 1986 [...] (2 - Td or Tdap) 01/14/2023 01/14/2013 [id number] Vaccine (3 - season) 2024 02/26/2021, 10/22/2020 [...] complete this topic Insurance AETNA Care Teams Office Mail Clerk Relationship Specialty Start Date End Date Denise Goldberg APRN [address] [place] [address] PCP - General 09/01/21
[2025-03-11 14:14] LABS: Free T4 (Free Thyroxine) 0.90 ng/dl (0.78-2.19)
[2025-03-11 14:17] LABS: 25-OH Vitamin D, Total 60.7 ng/mL (30-100)
[2025-03-11 14:29] LABS: Thyroid Stimulating Hormone 0.42 uIU/mL (0.465-4.68)
[2025-03-11 14:33] LABS: Ferritin 74.1 ng/ml (11.1-264)
[2025-03-11 14:48] LABS: Vitamin B12 364 pg/mL (239-931)
== END 2025-03-11 23:59 | disposition home or self-care (01) ==
LOC: LAB.DROPOF 14:08
PROVIDERS: PCP Nurse Practitioner Family; Visit Provider Nurse Practitioner Family
DX: E55.9 Vitamin D deficiency, unspecified (principal); I10 Essential (primary) hypertension; Z72.0 Tobacco use; Q60.0 Renal agenesis, unilateral; E66.3 Overweight; E78.2 Mixed hyperlipidemia; K92.1 Melena; K64.8 Other hemorrhoids; N95.1 Menopausal and female climacteric states; G43.909 Migraine, unspecified, not intractable, without status migrainosus; E11.9 Type 2 diabetes mellitus without complications; G47.33 Obstructive sleep apnea (adult) (pediatric); R41.3 Other amnesia
CPT/HCPCS: 80053; 80061; 81001; 82306; 82607; 82728; 83036; 83540; 83550; 84156; 84439; 84443; 85025; 87086; 87088; 87186

== ENCOUNTER 2025-03-18 07:46 | Outpatient (CLI) | payer OTHER, SELFPAY ==
--- OUTSIDE RECORDS SUMMARY | 2025-02-25 09:15 | XMS_ITS | Encounter Summary ---
Author Organization [facility] Address [address] [place] [address] Care Team Providers Care Chef Assistant Name Role Phone Lenin Brandt MD Unavailable [phone] Reason for Visit * Reason Comments Follow-up Encounter Details Date Type Department Care Team (Late st Contact Info) Description 02/25/2025 9:15 AM EST Office Visit [facility] [address] [address] Addy Gardiner MD [address] [place] [address] S/P arthroscopy of shoulder (Primary Dx) Social [...] Progress Notes * Addy Gardiner MD - 02/25/2025 9:15 AM EST Images from the original note were not included. Tiffanie Amezcua APRN/ Orthopaedic Surgery/Sports Medicine [address] [place] [address] Patient Name: Marilyn Yoon [id number] Date of : 1970 Patient Primary Care Physician: No primary care provider on file. DATE OF VISIT: 02/25/2025 This patient was seen in consultation with [...] Right shoulder arthroscopic biceps tenodesis. 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 Review of systems reviewed from patient history form is availablein the patient's chart. BMI: 29.4 per last recorded measurement. History: Marilyn Yoon is a 54 y.o. female comes in today for review of right shoulder. She has been attending physical therapy s at [facility] which is closer to her home. 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 They have started onstrengthening and physical therapy. She feels like her range of motion is not full. All in all she feels like she is doing well. She does note some achy discomfort in the morning. Physical Exam: The patient is alert and oriented adequately groomed in no acute distress. Skin incisions are well-healed. Her range of motion is within normal limits. The patient is weak in any elevated positions. Better below shoulder Good range of motion the elbow [...] and doing well at this point. She does have some weakness as to be expected in this early postoperative. I have asked her to ask her therapist from [facility] to shoot us a copyof her therapy note. She states they just did another measurement. Will have her continue with no use of that arm at work she will ice with regularity and we will see her back in 6 weeks for reevaluation or sooner if she has any additional problems. We have discussed the nature of the diagnosis and treatment options with the patient today. Ample time was given for discussion and questions about different treatment strategies and the patient is in full agreement with our treatment plan. All decisions were made with the patient's full understanding. Athlete/Work Note The patients current sports/work status is: Employer: [employer] no use of the right arm. Here are a few indicators that it???s safe to return to playing sports after your injury and recovery: Absence of pain Absence of swelling and inflammation Gnosticism of full range of motion Regained strength [...] any issues or concerns in the future. documented in this encounter Plan of Treatment Upcoming Encounters Date Type Department Care Team (Late st Contact Info) Description 04/22/2025 8:00 AM EST Office Visit [facility] [address] [address] Addy Gardiner MD [address] [facility] [address] [place] [address] documented as of this encounter Goals Goal Patient Goal Type Associated Problems Recent Progress Patient-Stated? Author Maintain a healthy diet, exercise regularly and maintain an ideal body weight General Martina Campbell CMA Stay Tobacco Free Lifestyle Martina Campbell CMA documented as of this encounter Visit Diagnoses Diagnosis S/P arthroscopy of shoulder- Primary Other postprocedural status documented in this encounter Care Teams Chef Assistant Relationship Specialty Start Date End Date Lenin Brandt MD Physician Internal Medicine-Gastroenterology 06/30/13 documented as of this encounter
--- OUTSIDE RECORDS SUMMARY | 2025-03-18 07:49 | XMS_ITS | Clinical Summary ---
Author Organization [facility] Address [address] [place] [address] Care Team Providers Care School Aide Name Role Phone Denise Goldberg JENIFER Primary Care Provider [phone] Allergies Active Allergy Reactions Criticality Noted Date [...] (2 - Td or Tdap) 01/14/2023 01/14/2013 [id number] Vaccine (3 - season) 2024 02/26/2021, 10/22/2020 [...] complete this topic Insurance AETNA Care Teams School Aide Relationship Specialty Start Date End Date Denise Goldberg APRN [address] [place] [address] PCP - General 09/01/21
--- OUTSIDE RECORDS SUMMARY | 2025-03-18 07:49 | XMS_ITS | Encounter Summary ---
Author Organization [place] [address] Care Team Providers Care Police Pilot Name Role Phone Lenin Bradnt MD Unavailable [phone] Wilberto Miles DO Primary Care Provider [phone] Encounter Details Date Type Department Care Team (Late st Contact Info) Description 09/11/2019 Lab Requisition [place] [address] Ildefonso Quevedo MD [address] [place] [address] Encounter for screening for other viral diseases [...] [facility] [address] [place] [address] Addy Gardiner MD [address] [place] [address] documented as of this encounter Goals Goal [...] REF LAB (09/10/2019 11:30 AM EDT) CORONAVIRUS [id number] NEGATIVE Negative 09/12/2019 5:30 PM EDT [facility] Comment: Negative results do not preclude [...] developed and performance characteristics are determined by [facility]. It has not been cleared nor approved by the FDA. The laboratory is accredited through CLIA and deemed qualified to perform high-complexity testing. Such testing is used for clinical purposes and should not be regarded as investigational or for research. [facility] Pat ID: [id number]; [place] Req Num: [id number]; [place] Spec ID: [id number] us Ildefonso Quevedo MD LAB SEND OUT ORDERABLES Final Re sult [facility] [address] [phone] documented in this encounter Visit Diagnoses Diagnosis Encounter for screening for other viral diseases documented in this encounter Care Teams Police Pilot Relationship Specialty Start Date End Date Wilberto Miles DO [address] [place] [address] PCP - General Family Medicine 09/09/19 03/14/20 Lenin Brandt MD Physician Internal Medicine-Gastroenterology 06/30/13 documented as of this encounter
--- OUTSIDE RECORDS SUMMARY | 2025-03-18 07:49 | XMS_ITS | Encounter Summary ---
Author Organization [facility] Address [address] [place] [address] Care Team Providers Care Gift Wrapper Name Role Phone Denise Goldberg AIR DRIER Primary Care Provider [phone]- [phone] Encounter Details Date Type Department Care Team (Late st Contact Info) Description 05/25/2021 Community [facility] Community Practice [address] [place] [address] Denise Goldberg APRN [address] [place] [address] Abnormal laboratory test (Primary Dx); [...] thigh documented in this encounter Care Teams Gift Wrapper Relationship Specialty Start Date End Date Denise Goldberg APRN [address] [place] [address] PCP - General 09/01/21 documented as of this encounter
--- OUTSIDE RECORDS SUMMARY | 2025-03-18 07:49 | XMS_ITS | Clinical Summary ---
Author Organization [facility] Address [address] [place] [address] Phone Care Team Providers Care Brick Burner Head Name Role Phone Lenin Brandt MD Unavailable [phone] Allergies Active Allergy Reactions Criticality Noted Date [...] Description 02/25/2025 9:15 AM EST Office Visit [facility] [address] [address] Addy Gardiner MD S/P arthroscopy of shoulder (Primary Dx) 01/14/2025 9:00 AM EDT Office Visit [facility] [address] [place] [address] Addy Gardiner MD S/P arthroscopy of shoulder [...] RECONSTRUCTION ; Surgeon: Addy Gardiner MD; [facility]; Service: Orthopedics Medical devices from this surgery are in the Medical Devices section. SHOULDER ARTHROSCOPY 11/25/2024 Shoulder/Right RIGHT SHOULDER ARTHROSCOPY ROTATOR CUFF REPAIR, SUBACROMIAL DECOMPRESSION, BICEP TENODESIS; Surgeon: Addy Gardiner MD; Location: [facility]; Service: Orthopedics Medical devices from this [...] Comments Heart Attack Father Heart Disease Father [place] and stent Hypertension Father Diabetes Maternal Grandfather [...] Office Visit [facility] [address] [address] Addy Gardiner MD [address] [place] [address] Health Maintenance Due Date Last Done Comments [...] Campbell CMA Medical Devices Implanted Type Area Optician Apprentice Dispensing Device Identifier Shelf Expiration Date Model / Serial / Lot Endobutton Ultra Cl 20mm - [id number] Implanted:Qty: 1 on 12/03/2017 by Addy Gardiner MD at [facility] Left: Knee HUBER [employer] NEPHEW:ENDO 06/13/2018 [id number] / / [id number] Device Fixation Exoshape Angle L30 Mm Od7 Mm Deployment Cart - [id number] Implanted:Qty: 1 on 12/03/2017 by Addy Gardiner MD at [facility] Left: Knee CONMED:LINVATEC 11/13/2020 1101-00-0 73 0 / / [id number] Healix Advance 5.5mm W/ Orthocord - [id number] Implanted:Qty: 1 on 11/25/2024 by Addy Gardiner MD at [facility] Right: Shoulder MITEK 08/14/2027 [id number] / / [id number] Insurance AETNA POS AETNA POS GENERIC WORKERS' COMP AETNA POS AETNA POS Care Teams Brick Burner Head Relationship Specialty Start Date End Date Lenin Brandt MD Physician Internal Medicine-Gastroenterology 06/30/13
--- NOTE | 2025-03-18 08:00 | CA_ITS ---
FINAL REPORT TECHNIQUE: Grayscale, color Doppler and duplex Doppler ultrasound of the kidneys, aorta and renal arteries was performed. Multiple velocities were measured. CLINICAL HISTORY: HTN,PT HAS SOLITARY LEFT KIDNEY FINDINGS: Aorta velocity: 98 cm/sec Right kidney is absent. Left Kidney: 15.1 cm. No evidence of hydronephrosis or mass. Left intrarenal RI: Slightly less than expected ranging from 0.5-0.7 Left renal artery velocity: 284 cm/sec. Left RAR (Renal Artery-Aortic Ratio): 2.90 IMPRESSION: Less than 60% stenosis left renal artery. CT angiogram or postcontrast MR angiogram would be more sensitive for evaluation of possible renal artery stenosis. Reviewed, Interpreted and Dictated by Moira [place] MD Transcribed by Tiffani Michelle Authenticated and . [facility]
--- NOTE | 2025-03-18 09:00 | US_ITS ---
FINAL REPORT TECHNIQUE: Sonographic images of the kidneys and retroperitoneum were obtained in the longitudinal and transverse planes. CLINICAL HISTORY: .solitary lt kidney-- onset of hypertension FINDINGS: The right kidney is absent. The left kidney measures 13.6 cm in [id number] length. No hydronephrosis. Mild splitting of renal sinus fat, likely physiologic. No stone or mass. Cortical echogenicity and thickness are normal. IMPRESSION: Morphologically normal left kidney. Reviewed, Interpreted and Dictated by Moira [place] MD Transcribed by Tiffani Michelle Authenticated and [facility]
== END 2025-03-18 23:59 | disposition home or self-care (01) ==
LOC: RT 07:47
PROVIDERS: PCP Nurse Practitioner Family; Visit Provider Nurse Practitioner Family
DX: I70.1 Atherosclerosis of renal artery (principal); Q60.0 Renal agenesis, unilateral; I10 Essential (primary) hypertension; Z72.0 Tobacco use
CPT/HCPCS: 76770; 93976

== ENCOUNTER 2025-04-01 07:26 | Outpatient (CLI) | payer OTHER, SELFPAY ==
--- OUTSIDE RECORDS SUMMARY | 2025-02-25 09:15 | XMS_ITS | Encounter Summary ---
Author Organization [facility] Address [address] [place] [address] Care Team Providers Care Water Resources Engineer Name Role Phone Lenin Brandt MD Unavailable [phone] Reason for Visit * Reason Comments Follow-up Encounter Details Date Type Department Care Team (Late st Contact Info) Description 02/25/2025 9:15 AM EST Office Visit [facility] [address] [address] Addy Gardiner MD [address] [place] [address] S/P arthroscopy of shoulder (Primary Dx) Social [...] included. Tiffanie Amezcua APRN/ Orthopaedic Surgery/Sports Medicine [address] [place] [address] Patient Name: Marilyn Yoon [id number] Date of : 1970 Patient Primary Care [...] has been attending physical therapy s at [facility] which is closer to her home. She [...] asked her to ask her therapist from [facility] to shoot us a copyof her therapy [...] The patients current sports/work status is: Employer: [employer] no use of the right arm. Here are a few indicators that it???s safe to return to playing sports after your injury and recovery: Absence of pain Absence of swelling and inflammation Presybeterian of full range of motion Regained strength [...] 04/22/2025 8:00 AM EST Office Visit [facility] [address] [address] Addy Gardiner MD [address] [facility] [address] [place] [address] documented as of this encounter Goals Goal Patient Goal Type Associated Problems Recent Progress Patient-Stated? Author Maintain a healthy diet, exercise regularly and maintain an ideal body weight General Martina Campbell CMA Stay Tobacco Free Lifestyle Martina Campbell CMA documented as of this encounter Visit Diagnoses Diagnosis S/P arthroscopy of shoulder- Primary Other postprocedural status documented in this encounter Care Teams Water Resources Engineer Relationship Specialty Start Date End Date Lenin Brandt MD Physician Internal Medicine-Gastroenterology 06/30/13 documented as of this encounter
--- OUTSIDE RECORDS SUMMARY | 2025-04-01 07:28 | XMS_ITS | Encounter Summary ---
Author Organization [place] [address] Care Team Providers Care Hot Die Press Operator Name Role Phone Lenin Brandt MD Unavailable [phone] Wilberto Miles DO Primary Care Provider [phone] Encounter Details Date Type Department Care Team (Late st Contact Info) Description 09/11/2019 Lab [place] [address] Ildefonso Quevedo MD [address] [place] [address] Encounter for screening for other viral diseases [...] [facility] [address] [place] [address] Addy Gardiner MD [address] [place] [address] documented as of this encounter Goals Goal [...] REF LAB (09/10/2019 11:30 AM EDT) CORONAVIRUS [id number] NEGATIVE Negative 09/12/2019 5:30 PM EDT [facility] Comment: Negative results do not preclude [...] developed and performance characteristics are determined by [facility]. It has not been cleared nor approved by the FDA. The laboratory is accredited through CLIA and deemed qualified to perform high-complexity testing. Such testing is used for clinical purposes and should not be regarded as investigational or for research. [facility] Pat ID: [id number]; [place] Req Num: [id number]; [place] Spec ID: [id number] us Ildefonso Quevedo MD LAB SEND OUT ORDERABLES Final Re sult [facility] [address] [phone] documented in this encounter Visit Diagnoses Diagnosis Encounter for screening for other viral diseases documented in this encounter Care Teams Hot Die Press Operator Relationship Specialty Start Date End Date Wilberto Miles DO [address] [place] [address] PCP - General Family Medicine 09/09/19 03/14/20 Lenin Brandt MD Physician Internal Medicine-Gastroenterology 06/30/13 documented as of this encounter
--- OUTSIDE RECORDS SUMMARY | 2025-04-01 07:28 | XMS_ITS | Encounter Summary ---
Author Organization [facility] Address [address] [place] [address] Care Team Providers Care Candy Starch Mold Printer Name Role Phone Denise Goldberg PULVI MIXER OPERATOR Primary Care Provider [phone]- [phone] Encounter Details Date Type Department Care Team (Late st Contact Info) Description 05/25/2021 Community [facility] Community Practice [address] [place] [address] Denise Goldberg APRN [address] [place] [address] Abnormal laboratory test (Primary Dx); [...] thigh documented in this encounter Care Teams Candy Starch Mold Printer Relationship Specialty Start Date End Date Denise Goldberg APRN [address] [place] [address] PCP - General 09/01/21 documented as of this encounter
--- OUTSIDE RECORDS SUMMARY | 2025-04-01 07:28 | XMS_ITS | Clinical Summary ---
Author Organization [facility] Address [address] [place] [address] Care Team Providers Care Pilot Plant Operator Name Role Phone Denise Goldberg JENIFER Primary Care Provider [phone]- [phone] Allergies Active Allergy Reactions Criticality Noted Date [...] (2 - Td or Tdap) 01/14/2023 01/14/2013 [id number] Vaccine (3 - season) 2024 02/26/2021, 10/22/2020 [facility]-Influenza Vaccine (#1) 12/15/202401/14, 01/14/2013 [facility]-Hepatitis B Vaccines Completed 014, 09/15/2013, 01/14/2013 HPV Vaccines (No Doses Required) Completed [facility]-HIB Vaccines Aged Out No longer e [...] complete this topic Insurance AETNA Care Teams Pilot Plant Operator Relationship Specialty Start Date End Date Denise Goldberg APRN [address] [place] [address] PCP - General 09/01/21
--- OUTSIDE RECORDS SUMMARY | 2025-04-01 07:28 | XMS_ITS | Clinical Summary ---
Author Organization [facility] Address [address] [place] [address] Phone Care Team Providers Care Copy Cutter Name Role Phone Lenin Brandt MD Unavailable [phone] Allergies Active Allergy Reactions Criticality Noted Date [...] Description 02/25/2025 9:15 AM EST Office Visit [facility] [address] [address] Addy Gardiner MD S/P arthroscopy of shoulder (Primary Dx) 01/14/2025 9:00 AM EDT Office Visit [facility] [address] [place] [address] Addy Gardiner MD S/P arthroscopy of shoulder [...] RECONSTRUCTION ; Surgeon: Addy Gardiner MD; Location: [facility]; Service: Orthopedics Medical devices from this surgery are in the Medical Devices section. SHOULDER ARTHROSCOPY 11/25/2024 Shoulder/Right RIGHT SHOULDER ARTHROSCOPY ROTATOR CUFF REPAIR, SUBACROMIAL DECOMPRESSION, BICEP TENODESIS; Surgeon: Addy Gardiner MD; Location: [facility] [place] [facility]; Service: Orthopedics Medical devices from [...] Comments Heart Attack Father Heart Disease Father [place] and stent Hypertension Father Diabetes Maternal Grandfather [...] Office Visit [facility] [address] [address] Addy Gardiner MD [address] [place] [address] Health Maintenance Due Date Last Done Comments [...] Campbell CMA Medical Devices Implanted Type Area Morals Squad Police Officer Device Identifier Shelf Expiration Date Model / Serial / Lot Endobutton Ultra Cl 20mm - [id number] Implanted:Qty: 1 on 12/03/2017 by Addy Gardiner MD at [facility] Left: Knee HU[employer] NEPHEW:ENDO 06/13/2018 [id number] / / [id number] Device Fixation Exoshape Angle L30 Mm Od7 Mm Deployment Cart - [id number] Implanted:Qty: 1 on 12/03/2017 by Addy Gardiner MD at [facility] Left: Knee CONMED:LINVATEC 11/13/2020 1101-00-0 73 0 / / [id number] Healix Advance 5.5mm W/ Orthocord - [id number] Implanted:Qty: 1 on 11/25/2024 by Addy Gardiner MD at [facility] Right: Shoulder M[employer]K 08/14/2027 [id number] / / [id number] Insurance AETNA POS AETNA POS GENERIC WORKERS' COMP AETNA POS AETNA POS Care Teams Copy Cutter Relationship Specialty Start Date End Date Lenin Brandt MD Physician Internal Medicine-Gastroenterology 06/30/13
--- NOTE | 2025-04-01 07:30 | MR_ITS ---
FINAL REPORT CLINICAL HISTORY: ABNORMAL US. COMPARISON: None FINDINGS: MRA ABDOMEN WITH AND WITHOUT CONTRAST: The aorta is normal in appearance. There is a solitary left kidney, with compensatory hypertrophic change of the left kidney. The left renal artery is widely patent. The mesenteric arteries are widely patent. Limited postcontrast images demonstrate a normal-appearing gallbladder and normal-appearing solid organs. IMPRESSION: 1. No evidence of left renal artery stenosis. 2. Solitary left kidney. Reviewed, Interpreted and Dictated by Michael Vo MD Transcribed by Noy Ramos Authenticated and [facility]
[2025-04-01] MEDS: GADOTERIDOL INJ 20ML SYRINGE 16 ML IV (08:34)
[2025-04-01] MEDS: SODIUM CHLORIDE 0.9% 10ML SYR (RAD ONLY) 10 ML IV (08:34)
[2025-04-01] MEDS: 0.9 % SODIUM CHLORIDE 50 ML VIAL 56 ML IV (08:34)
== END 2025-04-01 23:59 | disposition home or self-care (01) ==
LOC: RAD 07:26
PROVIDERS: PCP Nurse Practitioner Family; Visit Provider Nurse Practitioner Family
DX: Q60.0 Renal agenesis, unilateral (principal); I70.1 Atherosclerosis of renal artery
CPT/HCPCS: 74185; A9576; C8902

== ENCOUNTER 2025-04-15 17:30 | Outpatient (RCR) | payer OTHER, SELFPAY | END 2025-04-15 23:59 | disposition home or self-care (01) | LOC: OT 17:30 | PROVIDERS: PCP Nurse Practitioner Family; Visit Provider Orthopaedic Surgery | DX: M75.101 Unspecified rotator cuff tear or rupture of right shoulder, not specified as traumatic (principal); M75.21 Bicipital tendinitis, right shoulder | CPT/HCPCS: 97110; 97140 ==